=== PATIENT | male | born 1945 | race Caucasian/White ===

== ENCOUNTER 2016-07-12 13:49 | Inpatient (IN) | payer OTHER ==
[~2016-07-12] VITALS: Ht 188 cm; Wt 102.0 kg
[2016-07-12 13:53] VITALS: BP 142/84; PULSE 109; RESP 20; TEMP 97.5; O2SAT 91
--- NOTE | 2016-07-12 14:03 | PD ---
Physical Exam Time Seen by Provider: 14:00 Narrative 70yo F c/o syncopal episode last night. Denies hitting head. Vomited after event. C/o SOB for about month r/t pneumonia. Denies chest pain. Told [facility] Patient seen in triage. VS reviewed. Awaiting bed placement. Data Data Last Documented VS Vital Signs Date Time Temp Pulse Resp B/P Pulse Ox O2 Delivery O2 Flow Rate FiO2 07/12/16 13:53 97.5 109 20 142/[address] [facility] Supervised Visit with DAMON: Aileen Arita Jul 12, 2016 14:03
--- NOTE | 2016-07-12 14:26 | PD ---
HPI Chief Complaint: Syncope/Near-Syncope Time Seen by Provider: 14:26 Travel History International Travel<30 days: No Contact w/Intl Traveler<30days: No Traveled to known affect area: No History of Present Illness HPI 70-year-old male with a history of hypertension, CVA, atrial fibrillation, CABG with valve replacement and bypass 3 presents to the emergency department for evaluation of shortness of breath and syncope. The patient states that for the past month he's had worsening shortness of breath on exertion. States that he' s also had episodes of lightheadedness when bending down to pick something up or going from a sitting to standing position. States that last night he started up from his chair and he came very lightheaded and passed out for about 1-2 minutes. This was witnessed by the patient's . The patient denies any preceding chest pain. States that he had one episode of nonbloody nonbilious emesis earlier in the evening last night that he believes was secondary to bad spinach she ate at a restaurant. He denies any chest pain, abdominal pain, diarrhea, constipation, bloody stool, black stool, numbness and tingling, weakness, fever, chills, cough or cold symptoms. He is currently anticoagulated on Xarelto. PCP is the [facility]. No other complaints. PFSH Past Medical History Hx Anticoagulant Therapy: Yes (XARELTO) Cardiovascular Problems: Yes (VALVE REPLACEMENT, TRIPLE BYPASS) Cerebrovascular Accident: Yes (CVA 2009) Diabetes: Yes Respiratory: Yes Social History Tobacco Use: Yes (remote history, no longer smokes) Allergies-Medications (Allergen,Severity, Reaction): Coded Allergies: No Known Allergies (Unverified , 07/12/16) Reported Meds & Prescriptions Reported Meds & Active Scripts Active Reported Gabapentin 300 Mg Cap 300 Mg PO HS Lisinopril 5 Mg Tab 5 Mg PO DAILY Lantus Inj (Insulin Glargine) 1,000 Unit/10 Ml Vial 25 Units SQ HS Omeprazole 20 Mg Tab 20 Mg PO DAILY Tylenol-Codeine #3 (Acetaminophen-Codeine) 300-30 mg Tab 1 Tab PO Q4-6H PRN Xarelto (Rivaroxaban) 20 Mg Tab 20 Mg PO DAILY Invokana (Canagliflozin) 300 Mg Tab 300 Mg PO DAILY Take before 1st meal of day. [Liposic Eye Gel 0.2%] 1 Drop EACH EYE BID PRN Systane Ultra Preservative Opth (Polyethylene Glycol-Propylene Opth) 0.4-0.3% Soln 1 Drop EACH EYE BID PRN Atorvastatin (Atorvastatin Calcium) 40 Mg Tab 40 Mg PO HS Humalog Inj (Insulin Human Lispro) 1,000 Unit/10 Ml Vial 5-8 Units SQ TIDAC Max dose at bedtime:( )units; sugars < 70,(0)units; sugars 150-199,(2)units; sugars 200-249,(4)units; sugars 250-299,(7)units; sugars 300-349,(10)units; sugars more than 349,(12)units. Metformin (Metformin HCl) 1,000 Mg Tab 1,000 Mg PO BIDPC With meals Furosemide 20 Mg Tab 20 Mg PO DAILY Review of Systems Except as stated in HPI: all other systems reviewed are Neg Physical Exam Narrative GENERAL: Well-nourished and well-developed pleasant male patient in no acute distress who is nontoxic appearing. SKIN: Warm and dry. HEAD: Normocephalic and atraumatic. EYES: No injection, drainage, or hyphema noted. PERRLA. EOMI. ENT: No nasal drainage noted. Oropharynx is clear. NECK: Supple and the trachea is midline. CARDIOVASCULAR: Regular rate and rhythm. RESPIRATORY: Breath sounds are equal bilaterally with no accessory muscle use, wheezing, rhonchi, or crackles. GASTROINTESTINAL: Abdomen is soft, non-tender, and nondistended. MUSCULOSKELETAL: Mild swelling of lower extremities bilaterally. No obvious deformities, cyanosis, or ecchymosis is present throughout the upper and lower extremities. Patient has full range of motion without any signs of neurovascular compromise. NEUROLOGICAL: Awake, alert, and oriented. Normal speech and gait. Cranial nerves are grossly intact. Data Data Last Documented VS Vital Signs Date Time Temp Pulse Resp B/P Pulse Ox O2 Delivery O2 Flow Rate FiO2 07/12/16 14:37 84 136/71 89 101/72 112/57 07/12/16 14:16 20 95 Room Air 07/12/16 13:53 97.5 Orders Electrocardiogram (07/12/16 ) Complete Blood Count With Diff (07/12/16 14:23) Comprehensive Metabolic Panel (07/12/16 14:23) Magnesium (Mg) (07/12/16 14:23) Troponin I (07/12/16 14:23) Act Partial Throm Time (Ptt) (07/12/16 14:23) Prothrombin Time / Inr (Pt) (07/12/16 14:23) Chest, Single Ap (07/12/16 14:23) Ecg Monitoring (07/12/16 14:23) Iv Access Insert/Monitor (07/12/16 14:23) Oximetry (07/12/16 14:23) Sodium Chloride 0.9% Flush (Ns Flush) (07/12/16 14:30) Ct Pulmonary Angiogram (07/12/16 14:23) B-Type Natriuretic Peptide (07/12/16 14:23) Sodium Chlorid 0.9% 500 Ml Inj (Ns 500 M (07/12/16 14:30) Orthostatic Vital Signs (07/12/16 14:23) Iohexol 350 Inj (Omnipaque 350 Inj) (07/12/16 16:11) Labs Laboratory Tests Test 07/12/16 14:30 White Blood Count 10.9 TH/MM3 Red Blood Count 4.87 MIL/MM3 Hemoglobin 11.7 GM/DL Hematocrit 37.1 % Mean Corpuscular Volume 76.2 FL Mean Corpuscular Hemoglobin 24.1 PG Mean Corpuscular Hemoglobin 31.6 % Concent Red Cell Distribution Width 18.2 % Platelet Count 278 TH/MM3 Mean Platelet Volume 7.9 FL Neutrophils (%) (Auto) 80.8 % Lymphocytes (%) (Auto) 9.2 % Monocytes (%) (Auto) 8.0 % Eosinophils (%) (Auto) 1.5 % Basophils (%) (Auto) 0.5 % Neutrophils # (Auto) 8.8 TH/MM3 Lymphocytes # (Auto) 1.0 TH/MM3 Monocytes # (Auto) 0.9 TH/MM3 Eosinophils # (Auto) 0.2 TH/MM3 Basophils # (Auto) 0.1 TH/MM3 CBC Comment DIFF FINAL Differential Comment Prothrombin Time 16.4 SEC Prothromb Time International 1.5 RATIO Ratio Activated Partial 32.7 SEC Thromboplast Time Sodium Level 133 MEQ/L Potassium Level 4.7 MEQ/L Chloride Level 98 MEQ/L Carbon Dioxide Level 21.0 MEQ/L Anion Gap 14 MEQ/L Blood Urea Nitrogen 43 MG/DL Creatinine 1.32 MG/DL Estimat Glomerular Filtration 54 ML/MIN Rate Random Glucose 132 MG/DL Calcium Level 8.9 MG/DL Magnesium Level 2.3 MG/DL Total Bilirubin 0.7 MG/DL Aspartate Amino Transf 32 U/L (AST/SGOT) Alanine Aminotransferase 27 U/L (ALT/SGPT) Alkaline Phosphatase 92 U/L Troponin I 0.07 NG/ML B-Type Natriuretic Peptide 501 PG/ML Total Protein 7.3 GM/DL Albumin 3.5 GM/DL MDM Medical Decision Making Medical Screen Exam Complete: Yes Emergency Medical Condition: Yes Differential Diagnosis Orthostatic hypotension versus PE versus heart failure versus dehydration versus electrolyte abnormality versus pneumonia Narrative Course 70-year-old male presents to the emergency department for evaluation of shortness of breath and syncope. Patient is afebrile. He is tachycardic with heart rate 109 bpm. Patient is initially hypoxic with an oxygen saturation of 91%. IV access is obtained, labs have been drawn and sent. Patient is placed on cardiac telemetry and pulse oximetry monitoring. EKG shows atrial fibrillation with a ventricular rate of 90 bpm. He has some swelling of his ankles and states that he used to be on higher doses of diuretics but is now on a lower dose. He states he doesn't have a history of heart failure. CBC shows mild anemia with a hemoglobin of 11.7, hematocrit 37.1. CMP shows mild renal insufficiency with a creatinine of 1.32, BUN 43, GFR 54. Troponin is elevated at 0.07. BNP is elevated at 501. Coags are unremarkable. Chest x-ray shows cardiomegaly with mild positive fluid balance. CT pulmonary angiogram is negative for PE, shows advanced pulmonary fibrosis. Patient has remained stable without complaint the emergency department. The patient has mild elevations of both his troponin and his BNP. I suspect he has an element of heart failure which fits the clinical picture of his bilateral leg edema and shortness of breath with exertion. Given possibility of heart failure and his syncopal episode the patient will be kept in observation for further evaluation of these conditions. I discussed the case with my attending physician Dr. Bennett who is aware of the patients history, physical examination findings, and treatment plan. Physician Communication Physician Communication I spoke with Dr. Simon who agrees to keep the patient in observation. Diagnosis Primary Impression: Syncope Qualified Code: R55 - Syncope, unspecified syncope type Additional Impression: Elevated troponin Admitting Information Admitting Physician Requests: Observation Aileen Lindo Jul 12, 2016 14:26
[2016-07-12] MEDS ORDERED: SODIUM CHLORID 0.9% 500 ML INJ 500 ML IV ONE (14:30)
[2016-07-12] MEDS ORDERED: SODIUM CHLORIDE 0.9% FLUSH 10 ML FLUSH IVF PRN (14:30)
[2016-07-12 14:37] VITALS: BP_SYST 101; BP_SYST 112; BP_SYST 136; BP_DIAS 57; BP_DIAS 71; BP_DIAS 72
[2016-07-12 15:08] LABS: AUTOMATED NEUTROPHIL # 8.8 TH/MM3 (1.8-7.7); BASOPHIL # 0.1 TH/MM3 (0-0.2); BASOPHIL % 0.5 % (0.0-2.0); EOSINOPHIL # 0.2 TH/MM3 (0-0.4); EOSINOPHIL % 1.5 % (0.0-4.0); HEMATOCRIT 37.1 % (39.0-51.0); HEMO FLAGS DIFF FINAL; LYMPH % 9.2 % (9.0-44.0); MEAN CELL VOLUME 76.2 FL (80.0-100.0); MEAN CORPUSCULAR HEMOGLOBIN 24.1 PG (27.0-34.0); MEAN CORPUSCULAR HGB CONC 31.6 % (32.0-36.0); NEUT % 80.8 % (16.0-70.0); PLATELET COUNT 278 TH/MM3 (150-450); RED BLOOD COUNT 4.87 MIL/MM3 (4.50-5.90); RED CELL DISTRIBUTION WIDTH 18.2 % (11.6-17.2); WHITE BLOOD COUNT 10.9 TH/MM3 (4.0-11.0)
[2016-07-12 15:28] LABS: ALT (GPT) 27 U/L (12-78); ANION GAP 14 MEQ/L (5-15); AST (GOT) 32 U/L (15-37); BLOOD UREA NITROGEN 43 MG/DL (7-18); CHLORIDE 98 MEQ/L (98-107); GLOMERULAR FILTRATION RATE 54 ML/MIN (>89); MAGNESIUM 2.3 MG/DL (1.5-2.5); POTASSIUM 4.7 MEQ/L (3.5-5.1); SODIUM (NA) 133 MEQ/L (136-145)
[2016-07-12 15:32] LABS: ALKALINE PHOSPHATASE 92 U/L (45-117); TOTAL BILIRUBIN ADULT 0.7 MG/DL (0.2-1.0)
[2016-07-12 15:35] LABS: INTERNATIONAL NORMALIZED RATIO 1.5 RATIO; PROTHROMBIN TIME - PATIENT 16.4 SEC (9.8-11.6)
[2016-07-12 15:36] LABS: APTT (PATIENT) 32.7 SEC (24.3-30.1)
--- NOTE | 2016-07-12 15:46 | RADRPT ---
EXAM DATE/TIME: 07/12/2016 14:52 [facility] COMPARISON: No previous studies available for comparison. INDICATIONS : Short of breath, palpitations. MEDICAL HISTORY : None. SURGICAL HISTORY : CABG. ENCOUNTER: Initial ACUITY: 1 day PAIN SCORE: 0/10 LOCATION: Bilateral chest FINDINGS: Post surgical features of prior median sternotomy. Cardiac silhouette is mildly enlarged. Lungs are s lightly hypoaerated with diffuse interstitial prominence. No significant focal pleural or parenchymal opacities. Bony thorax is intact. CONCLUSION: 1. Cardiomegaly with mild positive fluid balance. Loy Arshad MD on July 12, 2016 at 15:42 Board Certified Radiologist. This report was verified electronically.
[2016-07-12] MEDS ORDERED: IOHEXOL 350 MG/ML 10 ML VIAL (for RAD DIAG) IV ONE (16:11)
--- NOTE | 2016-07-12 16:18 | RADRPT ---
EXAM DATE/TIME: 07/12/2016 15:48 [facility] COMPARISON: No previous studies available for comparison. INDICATIONS : Shortness of breath for one month syncopal episode last night. IV CONTRAST: 55 cc Omnipaque 350 (iohexol) IV RADIATION DOSE: 20.85 CTDIvol (mGy) MEDICAL HISTORY : Cardiovascular disease. Cerebrovascular disease.Diabetes SURGICAL HISTORY : CABG ENCOUNTER: Initial ACUITY: 1 month PAIN SCALE: 0/10 LOCATION: chest TECHNIQUE: Volumetric scanning of the chest was performed using a pulmonary embolism protocol MIP images were re constructed. Using automated exposure control and adjustment of the mA and/or kV according to patien t size, radiation dose was kept as low as reasonably achievable to obtain optimal diagnostic quality images. FINDINGS: The examination is of good diagnostic quality. No pulmonary embolus is identified. There is no significant hilar or mediastinal adenopathy. The patient is post median sternotomy and va lvular replacement. No axillary adenopathy is seen. Imaging through the pulmonary parenchyma demonstrates advanced interstitial fibrotic changes. There i s no significant pleural effusion. No suspicious mass lesion is identified. The limited portions of upper abdomen demonstrate a small amount of ascites. There are calcified ston es within the gallbladder. There degenerative changes within the spine. CONCLUSION: 1. Advanced pulmonary fibrosis. 2. No pulmonary embolus Francisco Javier Noonan MD on July 12, 2016 at 16:14 Board Certified Radiologist. This report was verified electronically.
[2016-07-12] MEDS ORDERED: [UNRECOGNIZED DRUG - OTHER] EACH EYE (16:29)
[2016-07-12] MEDS ORDERED: CANA300T PO (16:29)
[2016-07-12] MEDS ORDERED: SYSTSOL11 EACH EYE (16:29)
[2016-07-12] MEDS ORDERED: HUMALOG SQ (16:29)
[2016-07-12] MEDS ORDERED: ATOR40TA16 PO (16:29)
[2016-07-12] MEDS ORDERED: TYLETAB34 PO (16:29)
[2016-07-12] MEDS ORDERED: OMEP20TA PO (16:29)
[2016-07-12] MEDS ORDERED: LISI-519 PO (16:29)
[2016-07-12] MEDS ORDERED: LANTUS2P SQ (16:29)
[2016-07-12] MEDS ORDERED: FURO20TA PO (16:29)
[2016-07-12] MEDS ORDERED: METF1000 PO (16:29)
[2016-07-12] MEDS ORDERED: XARE20TA PO (16:29)
[2016-07-12] MEDS ORDERED: GABA300C5 PO (16:31)
[2016-07-12] MEDS ORDERED: GLUCAGON 1 MG/ML VIAL OTHER PRN (17:30)
[2016-07-12] MEDS ORDERED: TEMAZEPAM 15 MG CAP PO PRN (17:30)
[2016-07-12] MEDS ORDERED: ONDANSETRON HCL 4 MG/2 ML VIAL IVP PRN (17:30)
[2016-07-12] MEDS ORDERED: NALOXONE HCL 0.4 MG/ML AMP IV PRN (17:30)
[2016-07-12] MEDS ORDERED: SODIUM CHLORIDE 0.9% FLUSH 10 ML FLUSH IV FLUSH PRN (17:30)
[2016-07-12] MEDS ORDERED: DEXTROSE 50% IN WATER 50 ML VIAL(D50) IV PRN (17:30)
[2016-07-12] MEDS ORDERED: ACETAMINOPHEN 325 MG TAB PO PRN (17:30)
[2016-07-12] MEDS ORDERED: RESP: ALBUTEROL 2.5 MG/IPRATROPIUM 0.5 MG NEB (PRN) NEB (17:30)
[2016-07-12] MEDS: FUROSEMIDE 20 MG/2 ML VIAL IV PUSH SCH (18:00)
--- NOTE | 2016-07-12 18:17 | HHI.HP ---
H[facility] Admission Diagnosis Syncope, Elevated Troponin Diagnoses: Chief Complaint: Syncope Travel History International Travel<30 Days: No Contact w/Intl Traveler <30 Da: No Traveled to Known Affected Are: No History of Present Illness Written by Junito Pena, acting as scribe for Dr. Simon on 07/12/16 at 18:17. 70-year-old male with past medical history of HTN, A. fib, CVA, DM, HLD, GERD who presented after a syncopal episode. The patient states that last night he had a syncopal episode. He states that he stood up to a few steps and then felt lightheaded and dizzy like he was going to pass out. He subsequently lost consciousness for about 5 minutes. He states that he's been having problems breathing for the past month. He states that he's been on 3 courses of antibiotics which really haven't improved his breathing. He states that his shortness breath is worse whenever he exerts himself or whenever he bends over. He normally follows with physicians, including cardiology in [place] and plans to return there after discharge. He denies ever being diagnosed with congestive heart failure or COPD. He does state that his diabetes medicine specialist recently decreased his Lasix dose. He states that he takes Lasix for lower extremity swelling. He quit smoking in 1980. Review of Systems Except as stated in HPI: all other systems reviewed are Neg Past Family Social History Past Medical History Hypertension Stroke Atrial fibrillation Diabetes mellitus with peripheral neuropathy GERD Hyperlipidemia Past Surgical History CABG 3 with aortic valve replacement Right carotid grafting Reported Medications Gabapentin 300 Mg Cap 300 Mg PO HS Lisinopril 5 Mg Tab 5 Mg PO DAILY Lantus Inj (Insulin Glargine) 1,000 Unit/10 Ml Vial 25 Units SQ HS Omeprazole 20 Mg Tab 20 Mg PO DAILY Tylenol-Codeine #3 (Acetaminophen-Codeine) 300-30 mg Tab 1 Tab PO Q4-6H PRN Xarelto (Rivaroxaban) 20 Mg Tab 20 Mg PO DAILY Invokana (Canagliflozin) 300 Mg Tab 300 Mg PO DAILY Take before 1st meal of day. [Liposic Eye Gel 0.2%] 1 Drop EACH EYE BID PRN Systane Ultra Preservative Opth (Polyethylene Glycol-Propylene Opth) 0.4-0.3% Soln 1 Drop EACH EYE BID PRN Atorvastatin (Atorvastatin Calcium) 40 Mg Tab 40 Mg PO HS Humalog Inj (Insulin Human Lispro) 1,000 Unit/10 Ml Vial 5-8 Units SQ TIDAC Max dose at bedtime:( )units; sugars < 70,(0)units; sugars 150-199,(2)units; sugars 200-249,(4)units; sugars 250-299,(7)units; sugars 300-349,(10)units; sugars more than 349,(12)units. Metformin (Metformin HCl) 1,000 Mg Tab 1,000 Mg PO BIDPC With meals Furosemide 20 Mg Tab 20 Mg PO DAILY Allergies: Coded Allergies: No Known Allergies (Unverified , 07/12/16) Active Ordered Medications Current Medications Medications (Trade) Dose Ordered Sig/Gian Route Start Time Stop Time Status Last Admin (NS Flush) 2 ml UNSCH PRN IV FLUSH 07/12/16 17:30 (NS Flush) 2 ml BID IV FLUSH 07/12/16 21:00 (Tylenol) 650 mg Q4H PRN PO 07/12/16 17:30 (Zofran Inj) 4 mg Q6H PRN IVP 07/12/16 17:30 (Restoril) 15 mg HS PRN PO 07/12/16 17:30 (Narcan Inj) 0.4 mg UNSCH PRN IV 07/12/16 17:30 (Lasix Inj) 20 mg BID@09,18 IV PUSH 07/12/16 18:00 07/12/16 18:00 (D50w (Vial) Inj) 50 ml UNSCH PRN IV 07/12/16 17:30 (Glucagon Inj) 1 mg UNSCH PRN OTHER 07/12/16 17:30 Family History Mother had congestive heart failure Social History Quit smoking in 1980 Has alcohol maybe once or twice a year Denies any substance use 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 In no acute distress. SKIN: Warm and dry. No lesions noted. HEENT: Normocephalic. Pupils equal and round. Mucous membranes pink and moist. CARDIOVASCULAR: Regular rate and rhythm. 2/6 systolic murmur appreciated. RESPIRATORY: No accessory muscle use. Decreased breath sounds in the bilateral lung bases. No wheezing. GASTROINTESTINAL: Abdomen soft, non-tender, nondistended. Bowel sounds x4. MUSCULOSKELETAL: No obvious deformities. No clubbing or cyanosis. 1+ edema. NEUROLOGICAL: Awake and alert. No focal neurological deficits. Moves upper and lower extremities spontaneously. Normal speech. PSYCHIATRIC: Appropriate mood and affect; insight and judgment normal. Laboratory Laboratory Tests Test 07/12/16 14:30 White Blood Count 10.9 Red Blood Count 4.87 Hemoglobin 11.7 Hematocrit 37.1 Mean Corpuscular Volume 76.2 Mean Corpuscular Hemoglobin 24.1 Mean Corpuscular Hemoglobin 31.6 Concent Red Cell Distribution Width 18.2 Platelet Count 278 Mean Platelet Volume 7.9 Neutrophils (%) (Auto) 80.8 Lymphocytes (%) (Auto) 9.2 Monocytes (%) (Auto) 8.0 Eosinophils (%) (Auto) 1.5 Basophils (%) (Auto) 0.5 Neutrophils # (Auto) 8.8 Lymphocytes # (Auto) 1.0 Monocytes # (Auto) 0.9 Eosinophils # (Auto) 0.2 Basophils # (Auto) 0.1 CBC Comment DIFF FINAL Differential Comment Prothrombin Time 16.4 Prothromb Time International 1.5 Ratio Activated Partial 32.7 Thromboplast Time Sodium Level 133 Potassium Level 4.7 Chloride Level 98 Carbon Dioxide Level 21.0 Anion Gap 14 Blood Urea Nitrogen 43 Creatinine 1.32 Estimat Glomerular Filtration 54 Rate Random Glucose 132 Calcium Level 8.9 Magnesium Level 2.3 Total Bilirubin 0.7 Aspartate Amino Transf 32 (AST/SGOT) Alanine Aminotransferase 27 (ALT/SGPT) Alkaline Phosphatase 92 Troponin I 0.07 B-Type Natriuretic Peptide 501 Total Protein 7.3 Albumin 3.5 Result Diagram: 07/12/16 1430 07/12/16 1430 Imaging Last Impressions Chest X-Ray 07/12/16 1423 Signed Impressions: Service Date/Time: Tuesday, July 12, 2016 14:52 - CONCLUSION: 1. Cardiomegaly with mild positive fluid balance. Loy Arshad MD CT Angiography 07/12/16 1423 Signed Impressions: Service Date/Time: Tuesday, July 12, 2016 15:48 - CONCLUSION: 1. Advanced pulmonary fibrosis. 2. No pulmonary embolus Francisco Javier Noonan MD Assessment and Plan Problem List: (1) New onset of congestive heart failure ICD Code: I50.9 Status: Acute (2) Syncope ICD Code: R55 Status: Acute (3) Pulmonary fibrosis ICD Code: J84.10 Status: Acute (4) Atrial fibrillation ICD Code: I48.91 Status: Acute (5) DM (diabetes mellitus) ICD Code: E11.9 Status: Acute Assessment and Plan 70-year-old male with past medical history of HTN, A. fib, CVA, DM, HLD, GERD who presented after a syncopal episode Syncope: Unclear etiology, probably multifactorial. Orthostatic positive in the ED. Also probably a component of hypoxia from underlying CHF and COPD. Troponin 0.07, likely due to renal dysfunction CHF, will trend. EKG with A. fib and PVCs. Monitor orthostatic vitals. Monitor telemetry. Check echocardiogram. Treat underlying etiologies as below. Suspected new onset CHF: Chest x-ray with mild pulmonary edema. Lower edema on exam. Dyspnea on exertion by history. BNP 501. Diuresis with IV Lasix. Monitor I's and O's. Check echocardiogram. Consult cardiology. Pulmonary fibrosis with possible underlying COPD: Pulmonary angiogram with no PE , however shows advanced pulmonary fibrosis. Supplemental O2 and nebs as needed. Consider walk test. Needs pulmonology follow-up as outpatient. Diabetes mellitus: Hold home oral hypoglycemics for now. Continue home basal insulin. Monitor Accu-Cheks. SSI coverage as needed. Check hemoglobin A1c. Continue gabapentin for neuropathy. JOSELUIS vs CKD: Creatinine 1.32, no previous labs for comparison. Appears volume overloaded on exam. Diuresis as above. Follow-up BMP. Atrial fibrillation: Continue anticoagulations with Xarelto. This note was transcribed by ivan White I, Dr. Buddy Simon personally performed the history, physical exam, and medical decision making; and confirmed the accuracy of the information in the transcribed note. Authenticated by Dr. Buddy Simon on 07/12/16 at 18:17. Code Status Full code Discussed Condition With Patient, ED PA Problem Qualifiers (1) Syncope: Qualified Code: R55 - Syncope, unspecified syncope type Junito Pena Jul 12, 2016 18:17 Buddy Simon MD Jul 12, 2016 18:18
[2016-07-12] MEDS ORDERED: POLYETHYLENE GLYCOL PROPYLENE OPTH EACH EYE PRN (18:30)
[2016-07-12] MEDS ORDERED: [UNRECOGNIZED DRUG - OTHER] EACH EYE PRN (18:30)
[2016-07-12 20:26] VITALS: BP 121/64; PULSE 90; RESP 18; TEMP 98.5; O2SAT 97
[2016-07-12] MEDS: INSULIN ASPART SUPPLEMENTAL SCALE SQ SCH (21:00)
[2016-07-12] MEDS: INSULIN DETEMIR 100 UNITS/ML VIAL SQ SCH (21:00)
[2016-07-12] MEDS ORDERED: INSULIN ASPART SUPPLEMENTAL SCALE SQ SCH (21:00)
[2016-07-12 21:07] LABS: CREATINE KINASE 107 U/L (39-308)
[2016-07-12] MEDS: GABAPENTIN 300 MG CAP PO SCH (21:17)
[2016-07-12] MEDS: SODIUM CHLORIDE 0.9% FLUSH 10 ML FLUSH IV FLUSH SCH (21:18)
[2016-07-12] MEDS: ATORVASTATIN 40 MG TAB PO SCH (21:18)
[2016-07-12 22:52] VITALS: PULSE 84
[2016-07-13] VITALS (11 sets, daily range): BP systolic 82–133; BP diastolic 51–78; PULSE 64–91; RESP 16–20; TEMP 96.4–98.7; O2SAT 92–98
[2016-07-13 03:50] LABS: AUTOMATED NEUTROPHIL # 5.4 TH/MM3 (1.8-7.7); BASOPHIL # 0.1 TH/MM3 (0-0.2); EOSINOPHIL # 0.3 TH/MM3 (0-0.4); EOSINOPHIL % 3.8 % (0.0-4.0); HEMATOCRIT 36.4 % (39.0-51.0); HEMO FLAGS DIFF FINAL; LYMPH % 17.3 % (9.0-44.0); LYMPHOCYTE # 1.4 TH/MM3 (1.0-4.8); MEAN CELL VOLUME 76.1 FL (80.0-100.0); MEAN CORPUSCULAR HEMOGLOBIN 23.7 PG (27.0-34.0); MEAN CORPUSCULAR HGB CONC 31.1 % (32.0-36.0); MONO % 9.9 % (0.0-8.0); PLATELET COUNT 277 TH/MM3 (150-450); RED BLOOD COUNT 4.79 MIL/MM3 (4.50-5.90); RED CELL DISTRIBUTION WIDTH 18.2 % (11.6-17.2); WHITE BLOOD COUNT 7.9 TH/MM3 (4.0-11.0)
[2016-07-13 04:22] LABS: ANION GAP 11 MEQ/L (5-15); AST (GOT) 33 U/L (15-37); BICARBONATE 25.3 MEQ/L (21.0-32.0); BLOOD UREA NITROGEN 37 MG/DL (7-18); CHLORIDE 100 MEQ/L (98-107); GLOMERULAR FILTRATION RATE 64 ML/MIN (>89); POTASSIUM 4.4 MEQ/L (3.5-5.1); SODIUM (NA) 136 MEQ/L (136-145)
[2016-07-13 04:29] LABS: ALKALINE PHOSPHATASE 90 U/L (45-117); ALT (GPT) 27 U/L (12-78); TOTAL BILIRUBIN ADULT 0.5 MG/DL (0.2-1.0)
[2016-07-13] MEDS: INSULIN ASPART SUPPLEMENTAL SCALE SQ SCH ×4 (06:02→22:05)
[2016-07-13] MEDS: PANTOPRAZOLE SOD 20 MG DELAYED RELEASE TAB PO SCH (08:58)
[2016-07-13] MEDS: FUROSEMIDE 20 MG/2 ML VIAL IV PUSH SCH ×2 (08:58→17:13)
[2016-07-13] MEDS: RIVAROXABAN 20 MG TAB PO SCH (08:58)
[2016-07-13] MEDS: SODIUM CHLORIDE 0.9% FLUSH 10 ML FLUSH IV FLUSH SCH ×2 (08:59→21:00)
--- NOTE | 2016-07-13 09:14 | HHI.PR ---
Subjective Remarks Follow-up for syncope and probable CHF. The patient is doing well today. He denies any lightheadedness or dizziness. He hasn't really been out of bed much , reports shortness of breath with exertion. He states that normally he is able to go to sleep flat, but he does wake up at night and have to sit up to breathe better. He has no other acute complaints at this time. Objective Vitals Vital Signs Date Time Temp Pulse Resp B/P Pulse Ox O2 Delivery O2 Flow Rate FiO2 07/13/16 08:08 68 07/13/16 07:26 97.7 67 18 98/63 96 90/65 96/57 07/13/16 04:18 98.4 77 16 123/68 92 122/64 118/58 07/13/16 01:08 91 20 122/78 95 07/13/16 01:03 98 Nasal Cannula 3.00 07/12/16 22:52 84 07/12/16 20:26 98.5 90 18 121/64 97 07/12/16 14:37 84 136/71 89 101/72 112/57 07/12/16 14:16 20 95 Room Air 07/12/16 13:53 97.5 109 20 142/84 91 Room Air I/O 07/12/16 07/12/16 07/12/16 07/13/16 07/13/16 07/13/16 07:00 15:00 23:00 07:00 15:00 23:00 Intake Total 240 ml Output Total 350 ml 400 ml Balance -110 ml -400 ml Intake Oral 240 ml Output Urine Total 350 ml 400 ml Result Diagram: 07/13/1631607/13/16316 Imaging Last Impressions Chest X-Ray 07/12/161422 Signed Impressions: Service Date/Time: Tuesday, July 12, 2016 14:52 - CONCLUSION: 1. Cardiomegaly with mild positive fluid balance. Loy Arshad MD CT Angiography 07/12/161422 Signed Impressions: Service Date/Time: Tuesday, July 12, 2016 15:48 - CONCLUSION: 1. Advanced pulmonary fibrosis. 2. No pulmonary embolus Francisco Javier Noonan MD Objective Remarks GENERAL: Well-developed well-nourished. In no acute distress. SKIN: Warm and dry. No lesions noted. HEENT: Normocephalic. Pupils equal and round. Mucous membranes pink and moist. CARDIOVASCULAR: Irregular rate and rhythm. No murmur appreciated. RESPIRATORY: No accessory muscle use. Clear to auscultation. Diminished breath sounds in all lung cort[place]. No definite crackles noted. GASTROINTESTINAL: Abdomen soft, non-tender, nondistended. Bowel sounds x4. MUSCULOSKELETAL: No obvious deformities. No clubbing or cyanosis. 1+ edema. NEUROLOGICAL: Awake and alert. No focal neurological deficits. Moves upper and lower extremities spontaneously. Normal speech. PSYCHIATRIC: Appropriate mood and affect; insight and judgment normal. A/P Problem List: (1) New onset of congestive heart failure ICD Code: I50.9 Status: Acute (2) Syncope ICD Code: R55 Status: Acute (3) Pulmonary fibrosis ICD Code: J84.10 Status: Acute (4) Atrial fibrillation ICD Code: I48.91 Status: Acute (5) DM (diabetes mellitus) ICD Code: E11.9 Status: Acute Assessment and Plan 70-year-old male with past medical history of HTN, A. fib, CVA, DM, HLD, GERD who presented after a syncopal episode Syncope: Unclear etiology, probably multifactorial. -Orthostatic positive in the ED, improving, counseled on surgical incisions, FERNANDO hose. Monitor orthostatics. -Also probably a component of hypoxia from underlying CHF and COPD. Treat underlying etiologies as below. -Troponin 0.07, 0.09, 0.07, flat, nonischemic, likely due to renal dysfunction and CHF. EKG with A. fib and PVCs. -Monitor telemetry. Check echocardiogram. Suspected new onset CHF: Chest x-ray with mild pulmonary edema. Lower edema on exam. Dyspnea on exertion and orthopnea by history. BNP 501. Diuresis with IV Lasix. Monitor I's and O's. Check echocardiogram. Consulted cardiology. Pulmonary fibrosis with possible underlying COPD: Pulmonary angiogram with no PE , however shows advanced pulmonary fibrosis. Supplemental O2 and nebs as needed. Consider walk test. Needs pulmonology follow-up as outpatient. Diabetes mellitus: Hold home oral hypoglycemics for now. Continue home basal insulin. Monitor Accu-Cheks. SSI coverage as needed. Hemoglobin A1c pending. Continue gabapentin for neuropathy. JOSELUIS vs CKD: Creatinine 1.32, no previous labs for comparison. Creatinine improved to 1.13 with diuresis, likely cardiorenal. Diuresis as above. Follow- up BMP. Atrial fibrillation: Continue anticoagulation with Xarelto. Problem Qualifiers (1) Syncope: Qualified Code: R55 - Syncope, unspecified syncope type Junito Pena Jul 13, 2016 09:14
[2016-07-13 10:59] LABS: HEMOGLOBIN A1a 1.5 %; HEMOGLOBIN A1b 2.3 %; HEMOGLOBIN Ao 80.6 %; HEMOGLOBIN LA1C 2.1 %; HEMOGLOBIN P3 6.9 %
--- NOTE | 2016-07-13 13:06 | MB ---
cc: SANDRA CASTRO DATE OF CONSULTATION 07/13/2016 REASON FOR CONSULTATION Mr. Harper is a 70-year-old white male with a history of hypertension, atrial fibrillation, CVA and diabetes mellitus. Yesterday he had syncope after was dizzy, lightheaded and stood up, walked and passed out. He was unconscious apparently for about five minutes. He has had increased shortness of breath over the last month. He has not had any chest pain. He has no previous history of coronary artery disease for congestive heart failure. He has lower edema. PAST MEDICAL HISTORY Positive for: 1. Hypertension 2. CVA 3. Atrial fibrillation 4. Diabetes mellitus 5. Peripheral diabetic neuropathy 6. Gastroesophageal reflux disease 7. Dyslipidemia 8. History of coronary artery disease 9. Previous bypass 10. Aortic valve replacement 11. No peripheral vascular disease 12. Right carotid artery intervention MEDICATIONS Include: 1. Furosemide 2. Metformin 3. Insulin 4. Atorvastatin 5. Eye drops 6. Invokana 7. Xarelto 20 mg daily 8. Acetaminophen with codeine 9. Omeprazole 10. Lisinopril 5 mg a day 11. Gabapentin ALLERGIES None. SOCIAL HISTORY The patient quit smoking in the . He does drink alcohol rarely. He is retired. FAMILY HISTORY Positive for congestive heart failure in his mother. Negative for coronary artery disease. REVIEW OF SYSTEMS Otherwise negative. PHYSICAL EXAMINATION Blood pressure 93/63, pulse 77 and regular. HEENT: Negative. 2+ carotid upstrokes, no bruits. LUNGS: Clear. HEART: Irregular with no murmur, gallop or rub. ABDOMEN: Soft no bruits. EXTREMITIES: With mild edema, 1+ distal pulses. NEUROLOGIC: Exam is nonfocal. EKG was reviewed and showed atrial fibrillation with a controlled ventricular response, PVCs, delayed R-wave progression in the pericardial leads. LABORATORY DATA Hemoglobin 11.3, potassium 4.4, creatinine 1.3 and 1.1. AST and ALT normal, CK 107 and 95, troponin 0.07, 0.09 and 0.07, BMP 501. DIAGNOSIS 1. Syncope 2. Congestive heart failure 3. Chronic atrial fibrillation 4. Coronary artery disease with cardiac bypass. 5. Diabetes mellitus 6. Pulmonary fibrosis 7. Hypertension 8. Dyslipidemia DISPOSITION Mr. Harper will be monitored on telemetry. His slight troponin elevation is likely related to his renal insufficiency. We will obtain echocardiogram to evaluate his left ventricular function. We will continue therapy for congestive heart failure including IV diuresis. I will follow him for cardiology. We will closely monitor his renal function and electrolytes. I will follow him for cardiology during his hospitalization. He will then follow up at the [facility] after discharge. MD JONN Hernandez/JOSE RAMON /12:32 PM /12:51 PM URVASHI
--- NOTE | 2016-07-13 14:16 | EKG ---
Date Performed: 07/12/2016 Time Performed: 21:48:00 PTAGE: 70 years EKG: ATRIAL FIBRILLATION WITH ABERRANT CONDUCTION OR VENTRICULAR PREMATURE COMPLEXES POSSIBLE AN TERIOR MYOCARDIAL INFARCTION ABNORMAL RHYTHM ECG Compared to prior tracing no significant change PREVIOUS TRACING : 07/12/2016 14.21 DOCTOR: Tommie Ruggiero Interpretating Date/Time 07/13/2016 14:14:37
--- NOTE | 2016-07-13 14:16 | EKG ---
Date Performed: 07/13/2016 Time Performed: 03:40:20 PTAGE: 70 years EKG: ATRIAL FIBRILLATION WITH ABERRANT CONDUCTION OR VENTRICULAR PREMATURE COMPLEXES MODERATE IN TRAVENTRICULAR CONDUCTION DELAY MINIMAL ST DEPRESSION ABNORMAL QRS-T ANGLE ABNORMAL ECG Compared to p rior tracing no significant change PREVIOUS TRACING : 07/13/2016 03.39 DOCTOR: Tommie Ruggiero Interpretating Date/Time 07/13/2016 14:14:48
--- NOTE | 2016-07-13 14:16 | EKG ---
Date Performed: 07/12/2016 Time Performed: 14:21:17 PTAGE: 70 years EKG: ATRIAL FIBRILLATION WITH ABERRANT CONDUCTION OR VENTRICULAR PREMATURE COMPLEXES POSSIBLE AN TERIOR MYOCARDIAL INFARCTION ABNORMAL RHYTHM ECG NO PREVIOUS TRACING DOCTOR: Tommie Ruggiero Interpretating Date/Time 07/13/2016 14:14:27
--- NOTE | 2016-07-13 16:54 | ECHRPT ---
Indication: HEART FAILURE CONCLUSIONS Normal left ventricular size. Mild concentric left ventricular hypertrophy. The left ventricular sys tolic function is severely reduced with an estimated ejection fraction in the range of 20-25%. Mitral annular calcification is present. Trace mitral valve regurgitation. There is mild to moderate tricuspid valve regurgitation. BP: 96 / 57 HR: 67 Rhythm: Other MEASUREMENTS (Male / Female) Normal Values Technical Quality:Poor 2D ECHO LV Diastolic Diameter PLAX 4.4 cm 4.2 - 5.9 / 3.9 - 5.3 cm LV Systolic Diameter PLAX 3.9 cm IVS Diastolic Thickness 1.1 cm 0.6 - 1.0 / 0.6 - 0.9 cm LVPW Diastolic Thickness 1.1 cm 0.6 - 1.0 / 0.6 - 0.9 cm LV Relative Wall Thickness 0.5 LVOT Diameter 2.0 cm M-MODE Aortic Root Diameter MM 2.8 cm LA Systolic Diameter MM 4.7 cm LA Ao Ratio MM 1.7 DOPPLER AV Peak Velocity 209.0 cm/s AV Peak Gradient 17.5 mmHg AV Mean Gradient 12.0 mmHg AV Velocity Time Integral 47.3 cm LVOT Peak Velocity 103.0 cm/s LVOT Peak Gradient 4.2 mmHg AV Area Cont Eq pk 1.5 cm LV E' Septal Velocity 6.9 cm/s TR Peak Velocity 371.0 cm/s TR Peak Gradient 55.0 mmHg PV Peak Velocity 114.0 cm/s PV Peak Gradient 5.2 mmHg FINDINGS Left Ventricle Normal left ventricular size. Mild concentric left ventricular hypertrophy. The left ventricular sys tolic function is severely reduced with an estimated ejection fraction in the range of 20-25%. Right Ventricle Normal right ventricular size and systolic function. Left Atrium The left atrial size is normal. Right Atrium The right atrial size is normal. Atrial Septum Normal atrial septal thickness without atrial level shunting by limited color doppler interrogation. Aorta The aortic root and proximal ascending aorta are normal in size on limited imaging. Mitral Valve Mitral annular calcification is present. Trace mitral valve regurgitation. Aortic Valve Trileaflet aortic valve. No aortic valve stenosis or regurgitation. Tricuspid Valve There is mild to moderate tricuspid valve regurgitation. Pulmonary Valve The pulmonary valve is not well visualized. Vessels The inferior vena cava is normal in size. Pericardium No pericardial effusion. Other Findings Aortic valve replacement, veal valve per patient. Shaggy Mcrae MD, FACC (Electronically Signed) Final Date:13 July 2016 16:53
[2016-07-13] MEDS: INSULIN DETEMIR 100 UNITS/ML VIAL SQ SCH (22:03)
[2016-07-13] MEDS: ATORVASTATIN 40 MG TAB PO SCH (22:05)
[2016-07-13] MEDS: GABAPENTIN 300 MG CAP PO SCH (22:06)
[2016-07-13] MEDS: CARVEDILOL 3.125 MG TAB PO SCH (22:06)
[2016-07-14] VITALS (9 sets, daily range): BP systolic 88–122; BP diastolic 50–66; PULSE 72–96; RESP 18–20; TEMP 97.2–98; O2SAT 91–97
[2016-07-14] MEDS: INSULIN ASPART SUPPLEMENTAL SCALE SQ SCH ×4 (06:32→21:16)
--- NOTE | 2016-07-14 08:08 | HHI.PR ---
Subjective Remarks Follow up for syncope, new onset CHF. The patient reports feeling better today. He slept well last night, denies orthopnea. Denies any lightheadedness, dizziness, chest pain, or palpitations. He reports mild shortness of breath that is at his baseline. He believes his leg swelling has improved. He has no other medical complaints at this time. Objective Vitals Vital Signs Date Time Temp Pulse Resp B/P Pulse Ox O2 Delivery O2 Flow Rate FiO2 07/14/16 07:25 97.5 76 20 103/56 94 101/51 99/55 07/14/16 07:25 92 Nasal Cannula 2.00 07/14/16 05:52 98.0 18 88/66 94 98/62 96/50 07/14/16 02:01 74 07/13/16 23:36 98.7 64 18 105/56 95 103/63 101/55 07/13/16 20:06 96.4 74 18 109/55 98 106/58 106/54 07/13/16 15:21 97.8 82 19 114/68 95 07/13/16 11:19 97.6 77 19 133/63 96 07/13/16 09:04 Nasal Cannula 2.00 07/13/16 08:32 98 Nasal Cannula 4.00 07/13/16 08:08 68 I/O 07/13/16 07/13/16 07/13/16 07/14/16 07/14/16 07/14/16 07:00 15:00 23:00 07:00 15:00 23:00 Intake Total 350 ml 480 ml 500 ml Output Total 400 ml 1350 ml 500 ml Balance -400 ml -1000 ml -20 ml 500 ml Intake Oral 350 ml 480 ml 500 ml Output Urine Total 400 ml 1350 ml 500 ml # Voids 1 Result Diagram: 07/13/167 07/13/16316 Imaging Last Impressions Chest X-Ray 07/12/161422 Signed Impressions: Service Date/Time: Tuesday, July 12, 2016 14:52 - CONCLUSION: 1. Cardiomegaly with mild positive fluid balance. Loy Arshad MD CT Angiography 07/12/161422 Signed Impressions: Service Date/Time: Tuesday, July 12, 2016 15:48 - CONCLUSION: 1. Advanced pulmonary fibrosis. 2. No pulmonary embolus Francisco Javier Noonan MD Objective Remarks GENERAL: Well-nourished, well-developed pleasant elderly male patient in NAD. SKIN: Warm and dry. No rash. HEENT: Normocephalic. Atraumatic. Pupils equal and round. Mucous membranes pink and moist. NECK: Supple. Trachea midline. CARDIOVASCULAR: Regular rate and rhythm. S1, S2 noted. No murmur appreciated. RESPIRATORY: No accessory muscle use. Crackles at bilateral bases, otherwise clear to auscultation. Breath sounds equal bilaterally. GASTROINTESTINAL: Abdomen soft, non-tender, nondistended. Normoactive bowel sounds x4. MUSCULOSKELETAL: No obvious deformities. 1+ BLE edema. NEUROLOGICAL: Awake and alert. No obvious cranial nerve deficits. Motor grossly within normal limits. Normal speech. PSYCHIATRIC: Appropriate mood and affect; insight and judgment normal. Medications and IVs Current Medications Medications (Trade) Dose Ordered Sig/Gian Route Start Time Stop Time Status Last Admin (NS Flush) 2 ml UNSCH PRN IV FLUSH 07/12/16 17:30 (NS Flush) 2 ml BID IV FLUSH 07/12/16 21:00 07/13/16 21:00 (Tylenol) 650 mg Q4H PRN PO 07/12/16 17:30 (Zofran Inj) 4 mg Q6H PRN IVP 07/12/16 17:30 (Restoril) 15 mg HS PRN PO 07/12/16 17:30 (Narcan Inj) 0.4 mg UNSCH PRN IV 07/12/16 17:30 (Lasix Inj) 20 mg BID@09,18 IV PUSH 07/12/16 18:00 07/13/16 17:13 (D50w (Vial) Inj) 50 ml UNSCH PRN IV 07/12/16 17:30 (Glucagon Inj) 1 mg UNSCH PRN OTHER 07/12/16 17:30 (Tylenol-Codeine #3) 1 tab Q6HR PRN PO 07/12/16 18:30 (Lipitor) 40 mg HS PO 07/12/16 21:00 07/13/16 22:05 (Neurontin) 300 mg HS PO 07/12/16 21:00 07/13/16 22:06 (Levemir Inj) 25 units HS SQ 07/12/16 21:00 07/13/16 22:03 (Xarelto) 20 mg DAILY PO 07/13/16 09:00 07/13/16 08:58 (Protonix) 20 mg DAILY PO 07/13/16 09:00 07/13/16 08:58 Patient Own Medication PT OWN MED: Polyethylene Glycol-Propyl... BID PRN EACH EYE 07/12/16 18:30 Hold Patient Own Medication PT OWN MED: Lipo... BID PRN EACH EYE 07/12/16 18:30 Hold (Coreg) 3.125 mg Q12HR PO 07/13/16 21:00 07/13/16 22:06 A/P Problem List: (1) New onset of congestive heart failure ICD Code: I50.9 Status: Acute (2) Syncope ICD Code: R55 Status: Acute (3) Pulmonary fibrosis ICD Code: J84.10 Status: Acute (4) Atrial fibrillation ICD Code: I48.91 Status: Acute (5) DM (diabetes mellitus) ICD Code: E11.9 Status: Acute Assessment and Plan 70-year-old male with past medical history of HTN, A. fib, CVA, DM, HLD, GERD who presented after a syncopal episode Syncope: Suspect multifactorial. -Orthostatic positive in the ED, counseled on slow transitions, FERNANDO hose. Monitor orthostatics, improved. -Also suspect component of hypoxia from underlying CHF, COPD, and pulmonary fibrosis. Treat underlying etiologies as below. -Troponin 0.07, 0.09, 0.07, flat, nonischemic, likely due to renal dysfunction and CHF. EKG with A. fib and PVCs. -Monitor telemetry. -Echocardiogram with EF 20-25%, mild-mod TR New Onset Systolic CHF: CXR with mild pulmonary edema. +BLE edema on exam. SILVERMAN and orthopnea by history. BNP elevated at 501. -Continue diuresis with IV Lasix 20mg bid. -Monitor strict I's and O's. -Echocardiogram with EF 20-25%. -start on Coreg at 3.125mg bid however caution with hypotension, unable to start URIEL secondary to low BP -Consulted cardiology, appreciate recommendations. Pulmonary fibrosis with possible underlying COPD: Pulmonary angiogram with no PE , however shows advanced pulmonary fibrosis. Patient also had recent outpatient chest CT showing pulmonary fibrosis. -Supplemental O2 and nebs as needed. -Patient failed home oxygen walk test, O2 sat dropped to 83%, will require home O2 at discharge, order placed -[facility] has already referred him to pulmonology at [facility] as outpatient. -cardiology requesting pulmonology evaluation, will consult pulm Diabetes mellitus: Hemoglobin A1c 7.9. -Hold home oral hypoglycemics for now. -Monitor Accu-Cheks. SSI coverage as needed. -Continue home basal insulin. -Continue gabapentin for neuropathy. JOSELUIS vs CKD: Creatinine 1.32, no previous labs for comparison. Creatinine improved to 1.13 with diuresis, likely cardiorenal. -Diuresis as above. -Follow-up BMP, improved. Atrial fibrillation: Chronic, EKG shows Afib. Rate controlled. -Continue anticoagulation with Xarelto. DVT Prophylaxis: on Xarelto Problem Qualifiers (1) Syncope: Qualified Code: R55 - Syncope, unspecified syncope type Glenis Brooks PA-C Jul 14, 2016 08:08
[2016-07-14] MEDS: RIVAROXABAN 20 MG TAB PO SCH (09:20)
[2016-07-14] MEDS: SODIUM CHLORIDE 0.9% FLUSH 10 ML FLUSH IV FLUSH SCH ×2 (09:20→21:00)
[2016-07-14] MEDS: PANTOPRAZOLE SOD 20 MG DELAYED RELEASE TAB PO SCH (09:20)
[2016-07-14] MEDS: FUROSEMIDE 20 MG/2 ML VIAL IV PUSH SCH ×2 (09:21→17:51)
[2016-07-14] MEDS: CARVEDILOL 3.125 MG TAB PO SCH ×2 (09:21→21:17)
[2016-07-14] MEDS ORDERED: OXYGENDME NAS.CANULA (12:57)
[2016-07-14] MEDS: ACETAMINOPHEN/CODEINE 300 MG/30 MG TAB PO PRN ×2 (16:21→22:10)
--- NOTE | 2016-07-14 16:31 | PD.CARD.PN ---
Subjective Subjective Remarks No CP, less SOB, still w LE edema Objective Medications Current Medications Medications (Trade) Dose Ordered Sig/Gian Route Start Time Stop Time Status Last Admin (NS Flush) 2 ml UNSCH PRN IV FLUSH 07/12/16 17:30 (NS Flush) 2 ml BID IV FLUSH 07/12/16 21:00 07/14/16 09:20 (Tylenol) 650 mg Q4H PRN PO 07/12/16 17:30 (Zofran Inj) 4 mg Q6H PRN IVP 07/12/16 17:30 (Restoril) 15 mg HS PRN PO 07/12/16 17:30 (Narcan Inj) 0.4 mg UNSCH PRN IV 07/12/16 17:30 (Lasix Inj) 20 mg BID@18 IV PUSH 07/12/16 18:00 07/14/16 09:21 (D50w (Vial) Inj) 50 ml UNSCH PRN IV 07/12/16 17:30 (Glucagon Inj) 1 mg UNSCH PRN OTHER 07/12/16 17:30 (Tylenol-Codeine #3) 1 tab Q6HR PRN PO 07/12/16 18:30 07/14/16 16:21 (Lipitor) 40 mg HS PO 07/12/16 21:00 07/13/16 22:05 (Neurontin) 300 mg HS PO 07/12/16 21:00 07/13/16 22:06 (Levemir Inj) 25 units HS SQ 07/12/16 21:00 07/13/16 22:03 (Xarelto) 20 mg DAILY PO 07/13/16 09:00 07/14/16 09:20 (Protonix) 20 mg DAILY PO 07/13/16 09:00 07/14/16 09:20 Patient Own Medication PT OWN MED: Polyethylene Glycol-Propyl... BID PRN EACH EYE 07/12/16 18:30 Hold Patient Own Medication PT OWN MED: Lipo... BID PRN EACH EYE 07/12/16 18:30 Hold (Coreg) 3.125 mg Q12HR PO 07/13/16 21:00 07/14/16 09:21 Vital Signs / I&O Vital Signs Date Time Temp Pulse Resp B/P Pulse Ox O2 Delivery O2 Flow Rate FiO2 07/14/16 13:19 72 93 07/14/16 11:59 97.5 73 19 107/60 93 07/14/16 09:45 6.00 07/14/16 08:30 Nasal Cannula 2.00 07/14/16 07:56 96 07/14/16 07:25 97.5 76 20 103/56 94 101/51 99/55 07/14/16 07:25 92 Nasal Cannula 2.00 07/14/16 05:52 98.0 18 88/66 94 98/62 96/50 07/14/16 02:01 74 07/13/16 23:36 98.7 64 18 105/56 95 103/63 101/55 07/13/16 20:06 96.4 74 18 109/55 98 106/58 106/54 I/O 07/13/16 07/13/16 07/13/16 07/14/16 07/14/16 07/14/16 07:00 15:00 23:00 07:00 15:00 23:00 Intake Total 350 ml 480 ml 500 ml Output Total 400 ml 1350 ml 500 ml Balance -400 ml -1000 ml -20 ml 500 ml Intake Oral 350 ml 480 ml 500 ml Output Urine Total 400 ml 1350 ml 500 ml # Voids 1 Physical Exam GENERAL: In NAD SKIN: Warm and dry. HEAD: Normocephalic. EYES: No scleral icterus. No injection or drainage. NECK: Supple, trachea midline. No JVD or lymphadenopathy. CARDIOVASCULAR: Regular rate 1/6 syst murmur, no gallops, or rubs. RESPIRATORY: Breath sounds equal bilaterally. No accessory muscle use. GASTROINTESTINAL: Abdomen soft, non-tender, nondistended. MUSCULOSKELETAL: No cyanosis, 1-2+ pretib edema. Laboratory Current Medications Medications (Trade) Dose Ordered Sig/Gian Route Start Time Stop Time Status Last Admin (NS Flush) 2 ml UNSCH PRN IV FLUSH 07/12/16 17:30 (NS Flush) 2 ml BID IV FLUSH 07/12/16 21:00 07/14/16 09:20 (Tylenol) 650 mg Q4H PRN PO 07/12/16 17:30 (Zofran Inj) 4 mg Q6H PRN IVP 07/12/16 17:30 (Restoril) 15 mg HS PRN PO 07/12/16 17:30 (Narcan Inj) 0.4 mg UNSCH PRN IV 07/12/16 17:30 (Lasix Inj) 20 mg BID@09,18 IV PUSH 07/12/16 18:00 07/14/16 09:21 (D50w (Vial) Inj) 50 ml UNSCH PRN IV 07/12/16 17:30 (Glucagon Inj) 1 mg UNSCH PRN OTHER 07/12/16 17:30 (Tylenol-Codeine #3) 1 tab Q6HR PRN PO 07/12/16 18:30 07/14/16 16:21 (Lipitor) 40 mg HS PO 07/12/16 21:00 07/13/16 22:05 (Neurontin) 300 mg HS PO 07/12/16 21:00 07/13/16 22:06 (Levemir Inj) 25 units HS SQ 07/12/16 21:00 07/13/16 22:03 (Xarelto) 20 mg DAILY PO 07/13/16 09:00 07/14/16 09:20 (Protonix) 20 mg DAILY PO 07/13/16 09:00 07/14/16 09:20 Patient Own Medication PT OWN MED: Polyethylene Glycol-Propyl... BID PRN EACH EYE 07/12/16 18:30 Hold Patient Own Medication PT OWN MED: Lipo... BID PRN EACH EYE 07/12/16 18:30 Hold (Coreg) 3.125 mg Q12HR PO 07/13/16 21:00 07/14/16 09:21 Imaging Last Impressions Chest X-Ray 07/12/161422 Signed Impressions: Service Date/Time: Tuesday, July 12, 2016 14:52 - CONCLUSION: 1. Cardiomegaly with mild positive fluid balance. Loy Arshad MD CT Angiography 07/12/161422 Signed Impressions: Service Date/Time: Tuesday, July 12, 2016 15:48 - CONCLUSION: 1. Advanced pulmonary fibrosis. 2. No pulmonary embolus Francisco Javier Noonan MD Assessment and Plan Problem List: (1) New onset of congestive heart failure (2) Cardiomyopathy (3) Syncope (4) Atrial fibrillation (5) Pulmonary fibrosis (6) DM (diabetes mellitus) Assessment and Plan Echo w severe LV systolic dysfunction. Schedule adenosine nuclear myocardial study to evaluate his ischemic burden. Continue and titrate tx for CHF, monitor renal fx. Recommend pulmonary eval for pulm fibrosis. Continue monitoring. Increase activity. Problem Qualifiers (1) Syncope: Qualified Code: R55 - Syncope, unspecified syncope type Blaine Carcamo MD Jul 14, 2016 16:31
[2016-07-14] MEDS ORDERED: PILL SPLITTER OTHER PRN (17:15)
[2016-07-14] MEDS: LISINOPRIL 5 MG TAB PO SCH (17:15)
[2016-07-14] MEDS: INSULIN DETEMIR 100 UNITS/ML VIAL SQ SCH (21:16)
[2016-07-14] MEDS: ATORVASTATIN 40 MG TAB PO SCH (21:17)
[2016-07-14] MEDS: GABAPENTIN 300 MG CAP PO SCH (21:17)
[2016-07-15] VITALS (7 sets, daily range): BP systolic 87–104; BP diastolic 48–63; PULSE 71–95; RESP 16–22; TEMP 97.2–97.8; O2SAT 93–96
[2016-07-15] MEDS: INSULIN ASPART SUPPLEMENTAL SCALE SQ SCH ×4 (06:33→21:06)
[2016-07-15 09:44] LABS: BICARBONATE 29.4 MEQ/L (21.0-32.0)
[2016-07-15] MEDS ORDERED: REGADENOSON INJ 0.4 MG/5 ML SYR ONE (09:51)
--- NOTE | 2016-07-15 12:13 | RADRPT ---
EXAM DATE/TIME: 07/15/2016 09:07 [place] COMPARISON: No previous studies available for comparison. INDICATIONS : Syncopal episode after being dizzy. Shortness of breath over the last month. Elevated troponins. DOSE: 30.8 mCi Tc99m Myoview at stress. 10.1 mCi Tc99m Myoview at rest. 0.4 mg Lexiscan STRESS SYMPTOMS: Dyspnea. EJECTION FRACTION: 38% MEDICAL HISTORY : Hypertension. Diabetes mellitus type 2. Stroke. SURGICAL HISTORY : Tonsillectomy. CABG Heart valve replacement. ENCOUNTER: Initial ACUITY: 2 days PAIN SCALE: 0/10 LOCATION: chest TECHNIQUE: The patient underwent pharmacologic stress with infusion of prescribed dose. Continuous ECG tracing was monitored during stress. Gated SPECT imaging was performed after stress and conventional SPECT i maging was performed at rest. The examination was performed on a SPECT/CT scanner, both attenuation and non-corrected datasets were reviewed. FINDINGS: The best perfused myocardium is the anterior nasal segment. The large fixed defect involving the ant erior inferior wall extending from mid wall to base. The ventricular cavity is dilated. There is minimal redistribution the high septal wall. The ejection fraction is 36% with markedly abnormal wall motion inferior wall towards the base. The septal wall is akinetic. CONCLUSION: Stress-induced redistribution consistent with ischemia with significant wall motion abnormality basal inferior wall RISK CATEGORY: High (>3% Annual Mortality Rate) Markie Noonan MD FACR on July 15, 2016 at 12:07 Board Certified Radiologist. This report was verified electronically.
[2016-07-15] MEDS: PANTOPRAZOLE SOD 20 MG DELAYED RELEASE TAB PO SCH (13:08)
[2016-07-15] MEDS: CARVEDILOL 3.125 MG TAB PO SCH ×2 (13:08→21:00)
[2016-07-15] MEDS: LISINOPRIL 5 MG TAB PO SCH (13:09)
[2016-07-15] MEDS: FUROSEMIDE 20 MG/2 ML VIAL IV PUSH SCH ×2 (13:09→17:06)
[2016-07-15] MEDS: RIVAROXABAN 20 MG TAB PO SCH (13:09)
[2016-07-15] MEDS: SODIUM CHLORIDE 0.9% FLUSH 10 ML FLUSH IV FLUSH SCH ×2 (13:27→21:10)
[2016-07-15 14:48] LABS: BLOOD GAS BASE EXCESS 1.5 mmol/L (-2-2); BLOOD GAS CARBOXYHEMOGLOBIN 1.5 % (0-4); BLOOD GAS HCO3 26 mmol/L (22-26); BLOOD GAS METHEMOGLOBIN 1.3 % (0-2); BLOOD GAS O2 HGB SATURATION 78 % (90-100); BLOOD GAS OXYGEN CONTENT 12.1 Vol % (12.0-20.0); BLOOD GAS PCO2 43 mmHg (38-42); BLOOD GAS PO2 48 mmHg (61-120); CRITICAL VALUE YES; FIO2 21 %; OXYGEN DEVICE ROOM AIR; TEMP CORR TO 98.6
[2016-07-15 14:49] LABS: DRAW SITE RT RADIAL; NUMBER OF ARTERIAL PUNCTURES 1; STAT NO; ULNAR PULSE PRESENT
--- NOTE | 2016-07-15 16:24 | PD.CARD.PN ---
Subjective Subjective Remarks No CP, mild SOB Objective Medications Current Medications Medications (Trade) Dose Ordered Sig/Gian Route Start Time Stop Time Status Last Admin (NS Flush) 2 ml UNSCH PRN IV FLUSH 07/12/16 17:30 (NS Flush) 2 ml BID IV FLUSH 07/12/16 21:00 07/15/16 13:27 (Tylenol) 650 mg Q4H PRN PO 07/12/16 17:30 (Zofran Inj) 4 mg Q6H PRN IVP 07/12/16 17:30 (Restoril) 15 mg HS PRN PO 07/12/16 17:30 (Narcan Inj) 0.4 mg UNSCH PRN IV 07/12/16 17:30 (Lasix Inj) 20 mg BID@,18 IV PUSH 07/12/16 18:00 07/15/16 13:09 (D50w (Vial) Inj) 50 ml UNSCH PRN IV 07/12/16 17:30 (Glucagon Inj) 1 mg UNSCH PRN OTHER 07/12/16 17:30 (Tylenol-Codeine #3) 1 tab Q6HR PRN PO 07/12/16 18:30 07/14/16 22:10 (Lipitor) 40 mg HS PO 07/12/16 21:00 07/14/16 21:17 (Neurontin) 300 mg HS PO 07/12/16 21:00 07/14/16 21:17 (Levemir Inj) 25 units HS SQ 07/12/16 21:00 07/14/16 21:16 (Xarelto) 20 mg DAILY PO 07/13/16 09:00 07/15/16 13:09 (Protonix) 20 mg DAILY PO 07/13/16 09:00 07/15/16 13:08 Patient Own Medication PT OWN MED: Polyethylene Glycol-Propyl... BID PRN EACH EYE 07/12/16 18:30 Hold Patient Own Medication PT OWN MED: Lipo... BID PRN EACH EYE 07/12/16 18:30 Hold (Coreg) 3.125 mg Q12HR PO 07/13/16 21:00 07/15/16 13:08 (Prinivil) 2.5 mg DAILY PO 07/14/16 17:15 07/15/16 13:09 (Pill Splitter) 1 ea UNSCH PRN OTHER 07/14/16 17:15 Vital Signs / I&O Vital Signs Date Time Temp Pulse Resp B/P Pulse Ox O2 Delivery O2 Flow Rate FiO2 07/15/16 12:00 97.5 95 16 100/59 96 07/15/16 08:00 97.4 73 16 88/53 93 07/15/16 08:00 78 07/15/16 08:00 96 Nasal Cannula 3.00 07/15/16 04:00 97.2 77 20 104/56 94 07/15/16 00:00 97.3 71 20 93/63 95 07/14/16 20:15 77 07/14/16 20:00 97.2 78 20 108/60 97 07/14/16 19:35 Nasal Cannula 3.00 I/O 07/14/16 07/14/16 07/14/16 07/15/16 07/15/16 07/15/16 07:00 15:00 23:00 07:00 15:00 23:00 Intake Total 500 ml 220 ml 320 ml Output Total 475 ml 200 ml 1500 ml Balance 500 ml -475 ml 20 ml -1180 ml Intake Oral 500 ml 220 ml 320 ml Output Urine Total 475 ml 200 ml 1500 ml # Bowel Movements 0 0 Physical Exam GENERAL: In NAD SKIN: Warm and dry. HEAD: Normocephalic. EYES: No scleral icterus. No injection or drainage. NECK: Supple, trachea midline. No JVD or lymphadenopathy. CARDIOVASCULAR: Regular rate 1/6 syst murmur, no gallops, or rubs. RESPIRATORY: Breath sounds equal bilaterally. No accessory muscle use. GASTROINTESTINAL: Abdomen soft, non-tender, nondistended. MUSCULOSKELETAL: No cyanosis, 1+ pretib edema. Laboratory Laboratory Tests Test 07/15/16 07/15/16 07/15/16 07:08 13:01 14:40 Sodium Level 139 MEQ/L Potassium Level 4.0 MEQ/L Chloride Level 101 MEQ/L Carbon Dioxide Level 29.4 MEQ/L Anion Gap 9 MEQ/L Blood Urea Nitrogen 28 MG/DL Creatinine 1.01 MG/DL Estimat Glomerular Filtration 73 ML/MIN Rate Random Glucose 85 MG/DL Calcium Level 8.8 MG/DL D-Dimer Quantitative (PE/DVT) 0.46 MG/L FEU Blood Gas Puncture Site RT RADIAL Blood Gas Patient Temperature 98.6 Blood Gas HCO3 26 mmol/L Blood Gas Base Excess 1.5 mmol/L Blood Gas Oxygen Saturation 78 % Arterial Blood pH 7.40 Arterial Blood Partial 43 mmHg Pressure CO2 Arterial Blood Partial 48 mmHg Pressure O2 Arterial Blood Oxygen Content 12.1 Vol % Arterial Blood 1.5 % Carboxyhemoglobin Arterial Blood Methemoglobin 1.3 % Blood Gas Hemoglobin 11.0 G/DL Oxygen Delivery Device ROOM AIR Blood Gas Inspired Oxygen 21 % Imaging Last Impressions Myocardial Perfusion Scan Nuc Med 07/15/16 0000 Signed Impressions: Service Date/Time: Friday, July 15, 2016 09:07 - CONCLUSION: Stress- induced redistribution consistent with ischemia with significant wall motion abnormality basal inferior wall RISK CATEGORY: High (>3%% Annual Mortality Rate) Markie Noonan MD FACR Chest X-Ray 07/12/16 076 Signed Impressions: Service Date/Time: Tuesday, July 12, 2016 14:52 - CONCLUSION: 1. Cardiomegaly with mild positive fluid balance. Loy Arshad MD CT Angiography 07/12/16 703 Signed Impressions: Service Date/Time: Tuesday, July 12, 2016 15:48 - CONCLUSION: 1. Advanced pulmonary fibrosis. 2. No pulmonary embolus Francisco Javier Noonan MD Assessment and Plan Problem List: (1) New onset of congestive heart failure (2) Cardiomyopathy (3) Syncope (4) Atrial fibrillation (5) Pulmonary fibrosis (6) DM (diabetes mellitus) (7) CAD (coronary artery disease) Assessment and Plan Echo w severe LV systolic dysfunction. Nuc ST shows inferobasal ischemia. Continue and titrate tx for CHF, monitor renal fx. Pulmonary eval in progress. Continue monitoring. Increase activity. Schedule cath/poss PCI on Sun. D/w pt and . Problem Qualifiers (1) Syncope: Qualified Code: R55 - Syncope, unspecified syncope type Blaine Carcamo MD Jul 15, 2016 16:24
--- NOTE | 2016-07-15 17:16 | HHI.PR ---
Subjective Remarks 70-year-old male with past medical history of HTN, A. fib, CVA, DM, HLD, GERD who presented after a syncopal episode. The patient states that last night he had a syncopal episode. He states that he stood up to a few steps and then felt lightheaded and dizzy like he was going to pass out. He subsequently lost consciousness for about 5 minutes. He states that he's been having problems breathing for the past month. He states that he's been on 3 courses of antibiotics which really haven't improved his breathing. He states that his shortness breath is worse whenever he exerts himself or whenever he bends over. He normally follows with physicians, including cardiology in [place] and plans to return there after discharge. He denies ever being diagnosed with congestive heart failure or COPD. He does state that his diabetes medicine specialist recently decreased his Lasix dose. He states that he takes Lasix for lower extremity swelling. He quit smoking in 1980. 07/15: stable in his bedroom no nausea, vomit or diarrhea, awaiting recommendations by home staging specialist, Status post Stress test abnormal, Echocardiogram with EF 20 to 25%, as per Cardiology Severe Left Ventricular dysfunction, to continue to titrate CHF medicines, follow Pulmonary evaluation and Schedule Cath possible PCI for Sunday07/17/16. Objective Vital Signs Date Time Temp Pulse Resp B/P Pulse Ox O2 Delivery O2 Flow Rate FiO2 07/15/16 12:00 92/48 07/15/16 12:00 96/51 07/15/16 12:00 97.5 95 16 100/59 96 07/15/16 08:00 97.4 73 16 88/53 93 07/15/16 08:00 78 07/15/16 08:00 96 Nasal Cannula 3.00 07/15/16 04:00 97.2 77 20 104/56 94 07/15/16 00:00 97.3 71 20 93/63 95 07/14/16 20:15 77 07/14/16 20:00 97.2 78 20 108/60 97 07/14/16 19:35 Nasal Cannula 3.00 I/O 07/14/16 07/14/16 07/14/16 07/15/16 07/15/16 07/15/16 07:00 15:00 23:00 07:00 15:00 23:00 Intake Total 500 ml 220 ml 320 ml Output Total 475 ml 200 ml 1500 ml Balance 500 ml -475 ml 20 ml -1180 ml Intake Oral 500 ml 220 ml 320 ml Output Urine Total 475 ml 200 ml 1500 ml # Bowel Movements 0 0 Result Diagram: 07/13/16 0317 07/15/16 0708 Imaging Last Impressions Myocardial Perfusion Scan Nuc Med 07/15/16 0000 Signed Impressions: Service Date/Time: Friday, July 15, 2016 09:07 - CONCLUSION: Stress- induced redistribution consistent with ischemia with significant wall motion abnormality basal inferior wall RISK CATEGORY: High (>3%% Annual Mortality Rate) Markie Noonan MD FACR Chest X-Ray 07/12/161422 Signed Impressions: Service Date/Time: Tuesday, July 12, 2016 14:52 - CONCLUSION: 1. Cardiomegaly with mild positive fluid balance. Loy Arshad MD CT Angiography 07/12/161422 Signed Impressions: Service Date/Time: Tuesday, July 12, 2016 15:48 - CONCLUSION: 1. Advanced pulmonary fibrosis. 2. No pulmonary embolus Francisco Javier Noonan MD Procedures Stress test Other Results Laboratory Tests Test 07/12/16 07/12/16 07/13/16 07/15/16 14:30 20:30 03:17 07:08 Prothrombin Time 16.4 SEC Prothromb Time International 1.5 RATIO Ratio Activated Partial 32.7 SEC Thromboplast Time Magnesium Level 2.3 MG/DL B-Type Natriuretic Peptide 501 PG/ML Hemoglobin A1c 7.9 % White Blood Count 7.9 TH/MM3 Red Blood Count 4.79 MIL/MM3 Hemoglobin 11.3 GM/DL Hematocrit 36.4 % Mean Corpuscular Volume 76.1 FL Mean Corpuscular Hemoglobin 23.7 PG Mean Corpuscular Hemoglobin 31.1 % Concent Red Cell Distribution Width 18.2 % Platelet Count 277 TH/MM3 Mean Platelet Volume 8.1 FL Neutrophils (%) (Auto) 68.0 % Lymphocytes (%) (Auto) 17.3 % Monocytes (%) (Auto) 9.9 % Eosinophils (%) (Auto) 3.8 % Basophils (%) (Auto) 1.0 % Neutrophils # (Auto) 5.4 TH/MM3 Lymphocytes # (Auto) 1.4 TH/MM3 Monocytes # (Auto) 0.8 TH/MM3 Eosinophils # (Auto) 0.3 TH/MM3 Basophils # (Auto) 0.1 TH/MM3 CBC Comment DIFF FINAL Differential Comment Total Bilirubin 0.5 MG/DL Aspartate Amino Transf 33 U/L (AST/SGOT) Alanine Aminotransferase 27 U/L (ALT/SGPT) Alkaline Phosphatase 90 U/L Total Creatine Kinase 95 U/L Troponin I 0.07 NG/ML Total Protein 6.8 GM/DL Albumin 3.2 GM/DL Sodium Level 139 MEQ/L Potassium Level 4.0 MEQ/L Chloride Level 101 MEQ/L Carbon Dioxide Level 29.4 MEQ/L Anion Gap 9 MEQ/L Blood Urea Nitrogen 28 MG/DL Creatinine 1.01 MG/DL Estimat Glomerular Filtration 73 ML/MIN Rate Random Glucose 85 MG/DL Calcium Level 8.8 MG/DL Test 07/15/16 07/15/16 13:01 14:40 D-Dimer Quantitative (PE/DVT) 0.46 MG/L FEU Blood Gas Puncture Site RT RADIAL Blood Gas Patient Temperature 98.6 Blood Gas HCO3 26 mmol/L Blood Gas Base Excess 1.5 mmol/L Blood Gas Oxygen Saturation 78 % Arterial Blood pH 7.40 Arterial Blood Partial 43 mmHg Pressure CO2 Arterial Blood Partial 48 mmHg Pressure O2 Arterial Blood Oxygen Content 12.1 Vol % Arterial Blood 1.5 % Carboxyhemoglobin Arterial Blood Methemoglobin 1.3 % Blood Gas Hemoglobin 11.0 G/DL Oxygen Delivery Device ROOM AIR Blood Gas Inspired Oxygen 21 % Objective Remarks GENERAL: Well-developed well-nourished. In no acute distress. SKIN: Warm and dry. No lesions noted. HEENT: Normocephalic. Pupils equal and round. Mucous membranes pink and moist. CARDIOVASCULAR: Regular rate and rhythm. 2/6 systolic murmur appreciated. RESPIRATORY: No accessory muscle use. Decreased breath sounds in the bilateral lung bases. No wheezing. GASTROINTESTINAL: Abdomen soft, non-tender, nondistended. Bowel sounds x4. MUSCULOSKELETAL: No obvious deformities. No clubbing or cyanosis. 1+ edema. NEUROLOGICAL: Awake and alert. No focal neurological deficits. Moves upper and lower extremities spontaneously. Normal speech. PSYCHIATRIC: Appropriate mood and affect; insight and judgment normal. Medications and IVs Current Medications Medications (Trade) Dose Ordered Sig/Gian Route Start Time Stop Time Status Last Admin (NS Flush) 2 ml UNSCH PRN IV FLUSH 07/12/16 17:30 (NS Flush) 2 ml BID IV FLUSH 07/12/16 21:00 07/15/16 13:27 (Tylenol) 650 mg Q4H PRN PO 07/12/16 17:30 (Zofran Inj) 4 mg Q6H PRN IVP 07/12/16 17:30 (Restoril) 15 mg HS PRN PO 07/12/16 17:30 (Narcan Inj) 0.4 mg UNSCH PRN IV 07/12/16 17:30 (Lasix Inj) 20 mg BID@09,18 IV PUSH 07/12/16 18:00 07/15/16 13:09 (D50w (Vial) Inj) 50 ml UNSCH PRN IV 07/12/16 17:30 (Glucagon Inj) 1 mg UNSCH PRN OTHER 07/12/16 17:30 (Tylenol-Codeine #3) 1 tab Q6HR PRN PO 07/12/16 18:30 07/14/16 22:10 (Lipitor) 40 mg HS PO 07/12/16 21:00 07/14/16 21:17 (Neurontin) 300 mg HS PO 07/12/16 21:00 07/14/16 21:17 (Levemir Inj) 25 units HS SQ 07/12/16 21:00 07/14/16 21:16 (Xarelto) 20 mg DAILY PO 07/13/16 09:00 Hold 07/15/16 13:09 (Protonix) 20 mg DAILY PO 07/13/16 09:00 07/15/16 13:08 Patient Own Medication PT OWN MED: Polyethylene Glycol-Propyl... BID PRN EACH EYE 07/12/16 18:30 Hold Patient Own Medication PT OWN MED: Lipo... BID PRN EACH EYE 07/12/16 18:30 Hold (Coreg) 3.125 mg Q12HR PO 07/13/16 21:00 07/15/16 13:08 (Prinivil) 2.5 mg DAILY PO 07/14/16 17:15 07/15/16 13:09 (Pill Splitter) 1 ea UNSCH PRN OTHER 07/14/16 17:15 A/P Assessment and Plan 70-year-old male with past medical history of HTN, A. fib, CVA, DM, HLD, GERD who presented after a syncopal episode Syncope: Unclear etiology, probably multifactorial. Orthostatic positive in the ED. Also probably a component of hypoxia from underlying CHF and COPD. Troponin 0.07, likely due to renal dysfunction CHF, wEKG with A. fib and PVCs. Echocardiogram with Severe Left Ventricular Dysfunction EF 20-25% abnormal Stress test for Cardiac Cath for 09/16/16. New Onset of CHF with Severe LV Dysfunction EF 20-25 % for Cardiac Cath next Sunday07/17/16 Pulmonary fibrosis with possible underlying COPD: Pulmonary angiogram with no PE , however shows advanced pulmonary fibrosis. Supplemental O2 and nebs as needed. Pulmonary consult in progress. Diabetes mellitus: Hold home oral hypoglycemics for now. Continue home basal insulin. Monitor Accu-Cheks. SSI coverage as needed. Check hemoglobin A1c. Continue gabapentin for neuropathy. JOSELUIS vs CKD: Creatinine 1.32, no previous labs for comparison. Appears volume overloaded on exam. Diuresis as above. Follow-up BMP. Atrial fibrillation: Continue anticoagulations with Xarelto. Code Status Full code Discussed Condition With Patient and nurse Miss Sellers, all questions answered to the best of my abilities. Discharge Planning Continue full management by Cardiology and home staging specialist not yet clear for discharge. Kelvin Potts MD Jul 15, 2016 17:16 Full code Discussed Condition With Kelvin Potts MD Jul 15, 2016 17:16
--- NOTE | 2016-07-15 18:22 | MB ---
cc: MIHAELA TURNER DATE OF CONSULTATION 07/15/16 HISTORY OF PRESENT ILLNESS A 70-year-old white male who presented with syncope. This actually happened 24-48 hours before he presented to the emergency room. He recalls walking across his room feeling lightheaded and then he "blacked out." His was in the house, she found him, called a friend who called but the patient recovered consciousness, said that he felt fine and did not go to the hospital. When he was seen at the [place], however, they referred immediately to the hospital for evaluation. No recurrent syncope. I am asked to see him because he has had an abnormal CT scan and he has had gradually progressive dyspnea over the last 6-8 weeks. He has a history of hypertension, atrial fibrillation a previous stroke. He is diabetic and hyperlipidemic. This is the first episode of syncope that he has had. He has had several courses of antibiotics recently I presume through the [place] where he gets his primary care for this dyspnea and mild cough. He has produced some sputum. He has had no hemoptysis. He had no dyspnea or chest pain prior to the syncopal episode. He was a prior smoker. He smoked [id number] packs per day for about 20 years but quit smoking almost 30 years ago. No previous pulmonary diagnosis other than an episode of pneumonia at 50 years of age. PAST MEDICAL HISTORY Additional past history hypertension, diabetes, peripheral neuropathy, gastroesophageal reflux disease. He has had a previous bypass surgery and an aortic valve replacement. Those were done about 15 years ago and he had no pulmonary complications. He has also had a right carotid endarterectomy. ALLERGIES None. MEDICATIONS Reviewed and recorded in the EMR. SOCIAL HISTORY , living with his . Smoking noted. Rarely drinks alcohol. 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 No asbestos exposure. REVIEW OF SYSTEMS Review of systems other than that noted above he has had no chest pain. No swelling in his legs. No nausea, vomiting, abdominal pain, although, he has a history of reflux disease. He is not currently asymptomatic. PHYSICAL EXAMINATION GENERAL: Awake, alert, comfortable at rest. VITAL SIGNS: 97 degrees, pulse is 80, respirations are 18, blood pressure is 100/60 and on 3 liters his oxygen is 96%. HEENT: Sclerae anicteric. Mucous membranes are moist. NECK: Neck veins are flat. LUNGS He does have bibasilar rales, dry, velcro type. No congestion or wheezing. CARDIOVASCULAR: Regular rhythm. Soft systolic murmur. No audible S3. ABDOMEN: Abdomen is soft. EXTREMITIES: He has chronic venous stasis changes in the legs but very minimal pitting edema in the ankles. No cyanosis. IMAGING STUDIES CT angiogram on admission pulmonary fibrosis. No pulmonary embolism. LABORATORY DATA BUN 28, creatinine 1. BNP on presentation was 501. Arterial blood gas on room air his pO2 was 48, pH 7.4, pCO2 43, white counts normal at 7900, hemoglobin 11, D-dimer 0.46, INR 1.5. The patient had a nuclear perfusion scan today which reveals a stress-induced redistribution with significant wall motion abnormality in the basilar inferior wall. Cardiology is following him. DISCUSSION Mr. Harper appears to have some chronic changes in his lung. He was a distant former smoker. Precise etiology of progressive dyspnea over the last 6 to 8 weeks though it is unclear. He does not appear to be in significant respiratory difficulty at present. He does have ischemic heart disease, previous bypass and aortic valve replacement and appears to be in mild congestive heart failure at present which could account for all of his symptoms. He may have some underlying chronic disease of the lung as well with a mild superimposed pulmonary edema to account for the radiographic changes. There is no evidence of thromboembolic disease or pneumonia. I am sure he will have additional cardiovascular input at this point with the abnormal scan. I think his pulmonary workup could be accomplished as an outpatient once his cardiovascular status has been thoroughly reviewed and that workup is completed. He will need oxygen therapy at least for now, will continue that. Further diagnostic and/or therapeutic intervention will depend on his ongoing clinical course. R. MD ZOE Lyons/JADON /3:30 PM /5:57 PM
[2016-07-15] MEDS: ACETAMINOPHEN/CODEINE 300 MG/30 MG TAB PO PRN (19:21)
[2016-07-15] MEDS: INSULIN DETEMIR 100 UNITS/ML VIAL SQ SCH (21:07)
[2016-07-15] MEDS: GABAPENTIN 300 MG CAP PO SCH (21:09)
[2016-07-15] MEDS: ATORVASTATIN 40 MG TAB PO SCH (21:09)
[2016-07-16] VITALS (9 sets, daily range): BP systolic 85–105; BP diastolic 50–70; PULSE 66–80; RESP 18–20; TEMP 97.3–98.2; O2SAT 95–98
[2016-07-16] MEDS: INSULIN ASPART SUPPLEMENTAL SCALE SQ SCH ×4 (06:21→21:04)
[2016-07-16] MEDS: LISINOPRIL 5 MG TAB PO SCH (09:30)
[2016-07-16] MEDS: CARVEDILOL 3.125 MG TAB PO SCH ×2 (09:30→21:00)
[2016-07-16] MEDS: FUROSEMIDE 20 MG/2 ML VIAL IV PUSH SCH ×2 (09:31→17:24)
[2016-07-16] MEDS: PANTOPRAZOLE SOD 20 MG DELAYED RELEASE TAB PO SCH (09:31)
[2016-07-16] MEDS: ACETAMINOPHEN/CODEINE 300 MG/30 MG TAB PO PRN ×2 (09:36→17:25)
[2016-07-16] MEDS: SODIUM CHLORIDE 0.9% FLUSH 10 ML FLUSH IV FLUSH SCH ×2 (09:36→21:00)
--- NOTE | 2016-07-16 11:17 | HHI.PR ---
Subjective Remarks 70-year-old male with past medical history of HTN, A. fib, CVA, DM, HLD, GERD who presented after a syncopal episode. The patient states that last night he had a syncopal episode. He states that he stood up to a few steps and then felt lightheaded and dizzy like he was going to pass out. He subsequently lost consciousness for about 5 minutes. He states that he's been having problems breathing for the past month. He states that he's been on 3 courses of antibiotics which really haven't improved his breathing. He states that his shortness breath is worse whenever he exerts himself or whenever he bends over. He normally follows with physicians, including cardiology in [place] and plans to return there after discharge. He denies ever being diagnosed with congestive heart failure or COPD. He does state that his diabetes medicine specialist recently decreased his Lasix dose. He states that he takes Lasix for lower extremity swelling. He quit smoking in 1980. 07/15: Status post Stress test abnormal, Echocardiogram with EF 20 to 25%, Severe Left Ventricular dysfunction, to continue to titrate CHF medicines, follow Pulmonary evaluation and Schedule Cath possible PCI for Sunday07/17/16. 07/16: Seen in his bedroom and discussed with nurse Miss Sellers also his Friend and Dental medicine specialist in the room as per Patient asked to be talk in front of his friend. he will have Cardiac Cath for tomorrow. Objective Vital Signs Date Time Temp Pulse Resp B/P Pulse Ox O2 Delivery O2 Flow Rate FiO2 07/16/16 08:33 95 Nasal Cannula 3.00 07/16/16 08:00 95/53 07/16/16 08:00 97.7 72 18 105/57 96 07/16/16 08:00 96/54 07/16/16 04:00 Nasal Cannula 3.00 07/16/16 04:00 97.6 70 20 98/59 96 07/16/16 00:00 97.6 75 20 99/70 97 07/16/16 00:00 Nasal Cannula 3.00 07/15/16 20:00 77 07/15/16 20:00 97.8 83 22 89/63 94 87/59 100/60 Automatic Cuff 07/15/16 20:00 Nasal Cannula 3.00 07/15/16 17:36 96 Nasal Cannula 3.00 07/15/16 16:00 97.2 78 16 97/55 96 07/15/16 12:00 92/48 07/15/16 12:00 96/51 07/15/16 12:00 97.5 95 16 100/59 96 I/O 07/15/16 07/15/16 07/15/16 07/16/16 07/16/16 07/16/16 07:00 15:00 23:00 07:00 15:00 23:00 Intake Total 320 ml 480 ml 480 ml Output Total 1500 ml 500 ml 800 ml 600 ml Balance -1180 ml -20 ml -320 ml -600 ml Intake Oral 320 ml 480 ml 480 ml Output Urine Total 1500 ml 500 ml 800 ml 600 ml # Bowel Movements 0 1 Result Diagram: 07/13/16 0317 07/15/16 0708 Imaging Last Impressions Myocardial Perfusion Scan Nuc Med 07/15/16 0000 Signed Impressions: Service Date/Time: Friday, July 15, 2016 09:07 - CONCLUSION: Stress- induced redistribution consistent with ischemia with significant wall motion abnormality basal inferior wall RISK CATEGORY: High (>3%% Annual Mortality Rate) Markie Noonan MD FACR Chest X-Ray 07/12/161422 Signed Impressions: Service Date/Time: Tuesday, July 12, 2016 14:52 - CONCLUSION: 1. Cardiomegaly with mild positive fluid balance. Loy Arshad MD CT Angiography 07/12/161422 Signed Impressions: Service Date/Time: Tuesday, July 12, 2016 15:48 - CONCLUSION: 1. Advanced pulmonary fibrosis. 2. No pulmonary embolus Francisco Javier Noonan MD Procedures Stress test Other Results Laboratory Tests Test 07/12/16 07/12/16 07/13/16 07/15/16 14:30 20:30 03:17 07:08 Prothrombin Time 16.4 SEC Prothromb Time International 1.5 RATIO Ratio Activated Partial 32.7 SEC Thromboplast Time Magnesium Level 2.3 MG/DL B-Type Natriuretic Peptide 501 PG/ML Hemoglobin A1c 7.9 % White Blood Count 7.9 TH/MM3 Red Blood Count 4.79 MIL/MM3 Hemoglobin 11.3 GM/DL Hematocrit 36.4 % Mean Corpuscular Volume 76.1 FL Mean Corpuscular Hemoglobin 23.7 PG Mean Corpuscular Hemoglobin 31.1 % Concent Red Cell Distribution Width 18.2 % Platelet Count 277 TH/MM3 Mean Platelet Volume 8.1 FL Neutrophils (%) (Auto) 68.0 % Lymphocytes (%) (Auto) 17.3 % Monocytes (%) (Auto) 9.9 % Eosinophils (%) (Auto) 3.8 % Basophils (%) (Auto) 1.0 % Neutrophils # (Auto) 5.4 TH/MM3 Lymphocytes # (Auto) 1.4 TH/MM3 Monocytes # (Auto) 0.8 TH/MM3 Eosinophils # (Auto) 0.3 TH/MM3 Basophils # (Auto) 0.1 TH/MM3 CBC Comment DIFF FINAL Differential Comment Total Bilirubin 0.5 MG/DL Aspartate Amino Transf 33 U/L (AST/SGOT) Alanine Aminotransferase 27 U/L (ALT/SGPT) Alkaline Phosphatase 90 U/L Total Creatine Kinase 95 U/L Troponin I 0.07 NG/ML Total Protein 6.8 GM/DL Albumin 3.2 GM/DL Sodium Level 139 MEQ/L Potassium Level 4.0 MEQ/L Chloride Level 101 MEQ/L Carbon Dioxide Level 29.4 MEQ/L Anion Gap 9 MEQ/L Blood Urea Nitrogen 28 MG/DL Creatinine 1.01 MG/DL Estimat Glomerular Filtration 73 ML/MIN Rate Random Glucose 85 MG/DL Calcium Level 8.8 MG/DL Test 07/15/16 07/15/16 13:01 14:40 D-Dimer Quantitative (PE/DVT) 0.46 MG/L FEU Blood Gas Puncture Site RT RADIAL Blood Gas Patient Temperature 98.6 Blood Gas HCO3 26 mmol/L Blood Gas Base Excess 1.5 mmol/L Blood Gas Oxygen Saturation 78 % Arterial Blood pH 7.40 Arterial Blood Partial 43 mmHg Pressure CO2 Arterial Blood Partial 48 mmHg Pressure O2 Arterial Blood Oxygen Content 12.1 Vol % Arterial Blood 1.5 % Carboxyhemoglobin Arterial Blood Methemoglobin 1.3 % Blood Gas Hemoglobin 11.0 G/DL Oxygen Delivery Device ROOM AIR Blood Gas Inspired Oxygen 21 % Objective Remarks GENERAL: Well-developed well-nourished. In no acute distress. SKIN: Warm and dry. No lesions noted. HEENT: Normocephalic. Pupils equal and round. Mucous membranes pink and moist. CARDIOVASCULAR: Regular rate and rhythm. 2/6 systolic murmur appreciated. RESPIRATORY: No accessory muscle use. Decreased breath sounds in the bilateral lung bases. No wheezing. GASTROINTESTINAL: Abdomen soft, non-tender, nondistended. Bowel sounds x4. MUSCULOSKELETAL: No obvious deformities. No clubbing or cyanosis. 1+ edema. NEUROLOGICAL: Awake and alert. No focal neurological deficits. Moves upper and lower extremities spontaneously. Normal speech. PSYCHIATRIC: Appropriate mood and affect; insight and judgment normal. Medications and IVs Current Medications Medications (Trade) Dose Ordered Sig/Gian Route Start Time Stop Time Status Last Admin (NS Flush) 2 ml UNSCH PRN IV FLUSH 07/12/16 17:30 (NS Flush) 2 ml BID IV FLUSH 07/12/16 21:00 07/16/16 09:36 (Tylenol) 650 mg Q4H PRN PO 07/12/16 17:30 (Zofran Inj) 4 mg Q6H PRN IVP 07/12/16 17:30 (Restoril) 15 mg HS PRN PO 07/12/16 17:30 (Narcan Inj) 0.4 mg UNSCH PRN IV 07/12/16 17:30 (Lasix Inj) 20 mg BID@,18 IV PUSH 07/12/16 18:00 07/16/16 09:31 (D50w (Vial) Inj) 50 ml UNSCH PRN IV 07/12/16 17:30 (Glucagon Inj) 1 mg UNSCH PRN OTHER 07/12/16 17:30 (Tylenol-Codeine #3) 1 tab Q6HR PRN PO 07/12/16 18:30 07/16/16 09:36 (Lipitor) 40 mg HS PO 07/12/16 21:00 07/15/16 21:09 (Neurontin) 300 mg HS PO 07/12/16 21:00 07/15/16 21:09 (Levemir Inj) 25 units HS SQ 07/12/16 21:00 07/15/16 21:07 (Xarelto) 20 mg DAILY PO 07/13/16 09:00 Hold 07/15/16 13:09 (Protonix) 20 mg DAILY PO 07/13/16 09:00 07/16/16 09:31 Patient Own Medication PT OWN MED: Polyethylene Glycol-Propyl... BID PRN EACH EYE 07/12/16 18:30 Hold Patient Own Medication PT OWN MED: Lipo... BID PRN EACH EYE 07/12/16 18:30 Hold (Coreg) 3.125 mg Q12HR PO 07/13/16 21:00 07/16/16 09:30 (Prinivil) 2.5 mg DAILY PO 07/14/16 17:15 07/16/16 09:30 (Pill Splitter) 1 ea UNSCH PRN OTHER 07/14/16 17:15 A/P Assessment and Plan 70-year-old male with past medical history of HTN, A. fib, CVA, DM, HLD, GERD who presented after a syncopal episode Syncope: Unclear etiology, probably multifactorial. Orthostatic positive in the ED. Also probably a component of hypoxia from underlying CHF and COPD. Troponin 0.07, likely due to renal dysfunction CHF, wEKG with A. fib and PVCs. Echocardiogram with Severe Left Ventricular Dysfunction EF 20-25% abnormal Stress test for Cardiac Cath for 09/16/16. New Onset of CHF with Severe LV Dysfunction EF 20-25 % for Cardiac Cath next Sunday07/17/16 Pulmonary fibrosis with possible underlying COPD: Pulmonary angiogram with no PE , however shows advanced pulmonary fibrosis. seen by client renewal specialist Doctor Markie Hammer, recommended Oxygen therapy for now, depend of clinical course to continue workup. Diabetes mellitus: Hold home oral hypoglycemics for now. Continue home basal insulin. Monitor Accu-Cheks. SSI coverage as needed. hemoglobin A1C 7.9. Continue gabapentin for neuropathy. JOSELUIS IMproved. Atrial fibrillation: Continue anticoagulations with Xarelto. Code Status Full code Discussed Condition With Patient and his relative in the room allowed by patient to speak in front of him. and nurse Miss Sellers, all questions answered to the best of my abilities. Discharge Planning Continue full management by Cardiology and client renewal specialist not yet clear for discharge. Kelvin Potts MD Jul 16, 2016 11:17
--- NOTE | 2016-07-16 15:46 | PD.CARD.PN ---
Subjective Subjective Remarks No CP or SOB, feels better Objective Medications Current Medications Medications (Trade) Dose Ordered Sig/Gian Route Start Time Stop Time Status Last Admin (NS Flush) 2 ml UNSCH PRN IV FLUSH 07/12/16 17:30 (NS Flush) 2 ml BID IV FLUSH 07/12/16 21:00 07/16/16 09:36 (Tylenol) 650 mg Q4H PRN PO 07/12/16 17:30 (Zofran Inj) 4 mg Q6H PRN IVP 07/12/16 17:30 (Restoril) 15 mg HS PRN PO 07/12/16 17:30 (Narcan Inj) 0.4 mg UNSCH PRN IV 07/12/16 17:30 (Lasix Inj) 20 mg BID@,18 IV PUSH 07/12/16 18:00 07/16/16 09:31 (D50w (Vial) Inj) 50 ml UNSCH PRN IV 07/12/16 17:30 (Glucagon Inj) 1 mg UNSCH PRN OTHER 07/12/16 17:30 (Tylenol-Codeine #3) 1 tab Q6HR PRN PO 07/12/16 18:30 07/16/16 09:36 (Lipitor) 40 mg HS PO 07/12/16 21:00 07/15/16 21:09 (Neurontin) 300 mg HS PO 07/12/16 21:00 07/15/16 21:09 (Levemir Inj) 25 units HS SQ 07/12/16 21:00 07/15/16 21:07 (Xarelto) 20 mg DAILY PO 07/13/16 09:00 Hold 07/15/16 13:09 (Protonix) 20 mg DAILY PO 07/13/16 09:00 07/16/16 09:31 Patient Own Medication PT OWN MED: Polyethylene Glycol-Propyl... BID PRN EACH EYE 07/12/16 18:30 Hold Patient Own Medication PT OWN MED: Lipo... BID PRN EACH EYE 07/12/16 18:30 Hold (Coreg) 3.125 mg Q12HR PO 07/13/16 21:00 07/16/16 09:30 (Prinivil) 2.5 mg DAILY PO 07/14/16 17:15 07/16/16 09:30 (Pill Splitter) 1 ea UNSCH PRN OTHER 07/14/16 17:15 Vital Signs / I&O Vital Signs Date Time Temp Pulse Resp B/P Pulse Ox O2 Delivery O2 Flow Rate FiO2 07/16/16 12:00 97.3 74 18 99/56 98 07/16/16 08:33 95 Nasal Cannula 3.00 07/16/16 08:00 95/53 07/16/16 08:00 97.7 72 18 105/57 96 07/16/16 08:00 96/54 07/16/16 04:00 Nasal Cannula 3.00 07/16/16 04:00 97.6 70 20 98/59 96 07/16/16 00:00 97.6 75 20 99/70 97 07/16/16 00:00 Nasal Cannula 3.00 07/15/16 20:00 77 07/15/16 20:00 97.8 83 22 89/63 94 87/59 100/60 Automatic Cuff 07/15/16 20:00 Nasal Cannula 3.00 07/15/16 17:36 96 Nasal Cannula 3.00 07/15/16 16:00 97.2 78 16 97/55 96 I/O 07/15/16 07/15/16 07/15/16 07/16/16 07/16/16 07/16/16 07:00 15:00 23:00 07:00 15:00 23:00 Intake Total 320 ml 480 ml 480 ml Output Total 1500 ml 500 ml 800 ml 600 ml Balance -1180 ml -20 ml -320 ml -600 ml Intake Oral 320 ml 480 ml 480 ml Output Urine Total 1500 ml 500 ml 800 ml 600 ml # Bowel Movements 0 1 Physical Exam GENERAL: In NAD SKIN: Warm and dry. HEAD: Normocephalic. EYES: No scleral icterus. No injection or drainage. NECK: Supple, trachea midline. No JVD or lymphadenopathy. CARDIOVASCULAR: Regular rate 1/6 syst murmur, no gallops, or rubs. RESPIRATORY: Breath sounds equal bilaterally. No accessory muscle use. GASTROINTESTINAL: Abdomen soft, non-tender, nondistended. MUSCULOSKELETAL: No cyanosis, 1+ pretib edema. Laboratory Laboratory Tests Test 07/12/16 07/12/16 07/13/16 07/15/16 14:30 20:30 03:17 07:08 Prothrombin Time 16.4 SEC Prothromb Time International 1.5 RATIO Ratio Activated Partial 32.7 SEC Thromboplast Time Magnesium Level 2.3 MG/DL B-Type Natriuretic Peptide 501 PG/ML Hemoglobin A1c 7.9 % White Blood Count 7.9 TH/MM3 Red Blood Count 4.79 MIL/MM3 Hemoglobin 11.3 GM/DL Hematocrit 36.4 % Mean Corpuscular Volume 76.1 FL Mean Corpuscular Hemoglobin 23.7 PG Mean Corpuscular Hemoglobin 31.1 % Concent Red Cell Distribution Width 18.2 % Platelet Count 277 TH/MM3 Mean Platelet Volume 8.1 FL Neutrophils (%) (Auto) 68.0 % Lymphocytes (%) (Auto) 17.3 % Monocytes (%) (Auto) 9.9 % Eosinophils (%) (Auto) 3.8 % Basophils (%) (Auto) 1.0 % Neutrophils # (Auto) 5.4 TH/MM3 Lymphocytes # (Auto) 1.4 TH/MM3 Monocytes # (Auto) 0.8 TH/MM3 Eosinophils # (Auto) 0.3 TH/MM3 Basophils # (Auto) 0.1 TH/MM3 CBC Comment DIFF FINAL Differential Comment Total Bilirubin 0.5 MG/DL Aspartate Amino Transf 33 U/L (AST/SGOT) Alanine Aminotransferase 27 U/L (ALT/SGPT) Alkaline Phosphatase 90 U/L Total Creatine Kinase 95 U/L Troponin I 0.07 NG/ML Total Protein 6.8 GM/DL Albumin 3.2 GM/DL Sodium Level 139 MEQ/L Potassium Level 4.0 MEQ/L Chloride Level 101 MEQ/L Carbon Dioxide Level 29.4 MEQ/L Anion Gap 9 MEQ/L Blood Urea Nitrogen 28 MG/DL Creatinine 1.01 MG/DL Estimat Glomerular Filtration 73 ML/MIN Rate Random Glucose 85 MG/DL Calcium Level 8.8 MG/DL Test 07/15/16 07/15/16 13:01 14:40 D-Dimer Quantitative (PE/DVT) 0.46 MG/L FEU Blood Gas Puncture Site RT RADIAL Blood Gas Patient Temperature 98.6 Blood Gas HCO3 26 mmol/L Blood Gas Base Excess 1.5 mmol/L Blood Gas Oxygen Saturation 78 % Arterial Blood pH 7.40 Arterial Blood Partial 43 mmHg Pressure CO2 Arterial Blood Partial 48 mmHg Pressure O2 Arterial Blood Oxygen Content 12.1 Vol % Arterial Blood 1.5 % Carboxyhemoglobin Arterial Blood Methemoglobin 1.3 % Blood Gas Hemoglobin 11.0 G/DL Oxygen Delivery Device ROOM AIR Blood Gas Inspired Oxygen 21 % Imaging Last Impressions Myocardial Perfusion Scan Nuc Med 07/15/16 0000 Signed Impressions: Service Date/Time: Friday, July 15, 2016 09:07 - CONCLUSION: Stress- induced redistribution consistent with ischemia with significant wall motion abnormality basal inferior wall RISK CATEGORY: High (>3%% Annual Mortality Rate) Markie Noonan MD FACR Chest X-Ray 07/12/161422 Signed Impressions: Service Date/Time: Tuesday, July 12, 2016 14:52 - CONCLUSION: 1. Cardiomegaly with mild positive fluid balance. Loy Arshad MD CT Angiography [id number]/12/161422 Signed Impressions: Service Date/Time: Tuesday, July 12, 2016 15:48 - CONCLUSION: 1. Advanced pulmonary fibrosis. 2. No pulmonary embolus Francisco Javier Noonan MD Assessment and Plan Problem List: (1) New onset of congestive heart failure (2) Cardiomyopathy (3) Syncope (4) Atrial fibrillation (5) Pulmonary fibrosis (6) DM (diabetes mellitus) (7) CAD (coronary artery disease) Assessment and Plan CHF stabilized. Echo w severe LV systolic dysfunction. Nuc ST shows inferobasal ischemia. Continue and titrate tx for CHF, monitor renal fx. Pulmonary eval in progress, seen by Dr. Hammer. Continue monitoring. Increase activity. L and R heart cath/poss PCI tomorrow. D/w pt and . Problem Qualifiers (1) Syncope: Qualified Code: R55 - Syncope, unspecified syncope type Blaine Carcamo MD Jul 16, 2016 15:46
[2016-07-16] MEDS: ATORVASTATIN 40 MG TAB PO SCH (21:01)
[2016-07-16] MEDS: GABAPENTIN 300 MG CAP PO SCH (21:01)
[2016-07-16] MEDS: INSULIN DETEMIR 100 UNITS/ML VIAL SQ SCH (21:04)
[2016-07-17] VITALS (12 sets, daily range): BP systolic 92–113; BP diastolic 56–65; PULSE 71–90; RESP 18–20; TEMP 97.4–98.4; O2SAT 92–97
[2016-07-17] MEDS: INSULIN ASPART SUPPLEMENTAL SCALE SQ SCH ×3 (06:09→21:25)
--- NOTE | 2016-07-17 08:56 | HHI.PR ---
Subjective Remarks 70-year-old male with past medical history of HTN, A. fib, CVA, DM, HLD, GERD who presented after a syncopal episode. The patient states that last night he had a syncopal episode. He states that he stood up to a few steps and then felt lightheaded and dizzy like he was going to pass out. He subsequently lost consciousness for about 5 minutes. He states that he's been having problems breathing for the past month. He states that he's been on 3 courses of antibiotics which really haven't improved his breathing. He states that his shortness breath is worse whenever he exerts himself or whenever he bends over. He normally follows with physicians, including cardiology in [place] and plans to return there after discharge. He denies ever being diagnosed with congestive heart failure or COPD. He does state that his diabetes medicine specialist recently decreased his Lasix dose. He states that he takes Lasix for lower extremity swelling. He quit smoking in 1980. 07/15: Status post Stress test abnormal, Echocardiogram with EF 20 to 25%, Severe Left Ventricular dysfunction, to continue to titrate CHF medicines, follow Pulmonary evaluation and Schedule Cath possible PCI for Sunday07/17/16. 07/16: Cardiac Cath for tomorrow. 07/17: Patient stable seen in his bedroom, no complaint, no nausea, vomit or diarrhea awaiting for Cardiac cath later today Objective Vital Signs Date Time Temp Pulse Resp B/P Pulse Ox O2 Delivery O2 Flow Rate FiO2 07/17/16 04:00 97.4 79 18 98/59 94 07/17/16 04:00 Nasal Cannula 3.00 07/17/16 00:54 108/58 07/17/16 00:00 Nasal Cannula 3.00 07/17/16 00:00 97.8 90 20 96 07/16/16 20:15 67 07/16/16 20:00 89/55 07/16/16 20:00 98.2 66 18 85/50 95 07/16/16 20:00 92/53 07/16/16 20:00 Nasal Cannula 3.00 07/16/16 17:45 98 Nasal Cannula 3.00 07/16/16 16:00 97.4 76 18 105/57 98 07/16/16 12:00 97.3 74 18 99/56 98 I/O 07/16/16 07/16/16 07/16/16 07/17/16 07/17/16 07/17/16 07:00 15:00 23:00 07:00 15:00 23:00 Intake Total 480 ml 360 ml 240 ml Output Total 600 ml 1100 ml Balance -600 ml -620 ml 360 ml 240 ml Intake Oral 480 ml 360 ml 240 ml Output Urine Total 600 ml 1100 ml # Voids 3 1 # Bowel Movements 0 0 Result Diagram: 07/13/16 0317 07/15/16 0708 Imaging Last Impressions Myocardial Perfusion Scan Nuc Med 07/15/16 0000 Signed Impressions: Service Date/Time: Friday, July 15, 2016 09:07 - CONCLUSION: Stress- induced redistribution consistent with ischemia with significant wall motion abnormality basal inferior wall RISK CATEGORY: High (>3%% Annual Mortality Rate) Markie Noonan MD FACR Chest X-Ray 07/12/161422 Signed Impressions: Service Date/Time: Tuesday, July 12, 2016 14:52 - CONCLUSION: 1. Cardiomegaly with mild positive fluid balance. Loy Arshad MD CT Angiography 07/12/161422 Signed Impressions: Service Date/Time: Tuesday, July 12, 2016 15:48 - CONCLUSION: 1. Advanced pulmonary fibrosis. 2. No pulmonary embolus Francisco Javier Noonan MD Procedures Stress test Other Results Laboratory Tests Test 07/12/16 07/13/16 07/15/16 07/15/16 20:30 03:17 07:08 13:01 Hemoglobin A1c 7.9 % White Blood Count 7.9 TH/MM3 Red Blood Count 4.79 MIL/MM3 Hemoglobin 11.3 GM/DL Hematocrit 36.4 % Mean Corpuscular Volume 76.1 FL Mean Corpuscular Hemoglobin 23.7 PG Mean Corpuscular Hemoglobin 31.1 % Concent Red Cell Distribution Width 18.2 % Platelet Count 277 TH/MM3 Mean Platelet Volume 8.1 FL Neutrophils (%) (Auto) 68.0 % Lymphocytes (%) (Auto) 17.3 % Monocytes (%) (Auto) 9.9 % Eosinophils (%) (Auto) 3.8 % Basophils (%) (Auto) 1.0 % Neutrophils # (Auto) 5.4 TH/MM3 Lymphocytes # (Auto) 1.4 TH/MM3 Monocytes # (Auto) 0.8 TH/MM3 Eosinophils # (Auto) 0.3 TH/MM3 Basophils # (Auto) 0.1 TH/MM3 CBC Comment DIFF FINAL Differential Comment Total Bilirubin 0.5 MG/DL Aspartate Amino Transf 33 U/L (AST/SGOT) Alanine Aminotransferase 27 U/L (ALT/SGPT) Alkaline Phosphatase 90 U/L Total Creatine Kinase 95 U/L Troponin I 0.07 NG/ML Total Protein 6.8 GM/DL Albumin 3.2 GM/DL Sodium Level 139 MEQ/L Potassium Level 4.0 MEQ/L Chloride Level 101 MEQ/L Carbon Dioxide Level 29.4 MEQ/L Anion Gap 9 MEQ/L Blood Urea Nitrogen 28 MG/DL Creatinine 1.01 MG/DL Estimat Glomerular Filtration 73 ML/MIN Rate Random Glucose 85 MG/DL Calcium Level 8.8 MG/DL D-Dimer Quantitative (PE/DVT) 0.46 MG/L FEU Test 07/15/16 14:40 Blood Gas Puncture Site RT RADIAL Blood Gas Patient Temperature 98.6 Blood Gas HCO3 26 mmol/L Blood Gas Base Excess 1.5 mmol/L Blood Gas Oxygen Saturation 78 % Arterial Blood pH 7.40 Arterial Blood Partial 43 mmHg Pressure CO2 Arterial Blood Partial 48 mmHg Pressure O2 Arterial Blood Oxygen Content 12.1 Vol % Arterial Blood 1.5 % Carboxyhemoglobin Arterial Blood Methemoglobin 1.3 % Blood Gas Hemoglobin 11.0 G/DL Oxygen Delivery Device ROOM AIR Blood Gas Inspired Oxygen 21 % Objective Remarks GENERAL: Well-developed well-nourished. In no acute distress. SKIN: Warm and dry. No lesions noted. HEENT: Normocephalic. Pupils equal and round. Mucous membranes pink and moist. CARDIOVASCULAR: Regular rate and rhythm. 2/6 systolic murmur appreciated. RESPIRATORY: No accessory muscle use. Decreased breath sounds in the bilateral lung bases. No wheezing. GASTROINTESTINAL: Abdomen soft, non-tender, nondistended. Bowel sounds x4. MUSCULOSKELETAL: No obvious deformities. No clubbing or cyanosis. 1+ edema. NEUROLOGICAL: Awake and alert. No focal neurological deficits. Moves upper and lower extremities spontaneously. Normal speech. PSYCHIATRIC: Appropriate mood and affect; insight and judgment normal. Medications and IVs Current Medications Medications (Trade) Dose Ordered Sig/Gian Route Start Time Stop Time Status Last Admin (NS Flush) 2 ml UNSCH PRN IV FLUSH 07/12/16 17:30 (NS Flush) 2 ml BID IV FLUSH 07/12/16 21:00 07/16/16 21:00 (Tylenol) 650 mg Q4H PRN PO 07/12/16 17:30 (Zofran Inj) 4 mg Q6H PRN IVP 07/12/16 17:30 (Restoril) 15 mg HS PRN PO 07/12/16 17:30 (Narcan Inj) 0.4 mg UNSCH PRN IV 07/12/16 17:30 (Lasix Inj) 20 mg BID@09,18 IV PUSH 07/12/16 18:00 07/16/16 17:24 (D50w (Vial) Inj) 50 ml UNSCH PRN IV 07/12/16 17:30 (Glucagon Inj) 1 mg UNSCH PRN OTHER 07/12/16 17:30 (Tylenol-Codeine #3) 1 tab Q6HR PRN PO 07/12/16 18:30 07/16/16 17:25 (Lipitor) 40 mg HS PO 07/12/16 21:00 07/16/16 21:01 (Neurontin) 300 mg HS PO 07/12/16 21:00 07/16/16 21:01 (Levemir Inj) 25 units HS SQ 07/12/16 21:00 07/16/16 21:04 (Xarelto) 20 mg DAILY PO 07/13/16 09:00 Hold 07/15/16 13:09 (Protonix) 20 mg DAILY PO 07/13/16 09:00 07/16/16 09:31 Patient Own Medication PT OWN MED: Polyethylene Glycol-Propyl... BID PRN EACH EYE 07/12/16 18:30 Hold Patient Own Medication PT OWN MED: Lipo... BID PRN EACH EYE 07/12/16 18:30 Hold (Coreg) 3.125 mg Q12HR PO 07/13/16 21:00 07/16/16 09:30 (Prinivil) 2.5 mg DAILY PO 07/14/16 17:15 07/16/16 09:30 (Pill Splitter) 1 ea UNSCH PRN OTHER 07/14/16 17:15 A/P Assessment and Plan 70-year-old male with past medical history of HTN, A. fib, CVA, DM, HLD, GERD who presented after a syncopal episode Syncope: Unclear etiology, probably multifactorial. Orthostatic positive in the ED. Also probably a component of hypoxia from underlying CHF and COPD. Troponin 0.07, likely due to renal dysfunction CHF, wEKG with A. fib and PVCs. Echocardiogram with Severe Left Ventricular Dysfunction EF 20-25% abnormal Stress test for Cardiac Cath for today. New Onset of CHF with Severe LV Dysfunction EF 20-25 % for Cardiac Cath today. Pulmonary fibrosis with possible underlying COPD: Pulmonary angiogram with no PE , however shows advanced pulmonary fibrosis. seen by insurance verification specialist Doctor Markie Hammer, recommended Oxygen therapy, will need to follow with insurance verification specialist at [place]. Diabetes mellitus: Hold home oral hypoglycemics for now. Continue home basal insulin. Monitor Accu-Cheks. SSI coverage as needed. hemoglobin A1C 7.9. Continue gabapentin for neuropathy. Atrial fibrillation: Continue anticoagulations with Xarelto. Code Status Full code Discussed Condition With Patient and nurse Miss Medellin, all questions answered to the best of my abilities. Discharge Planning Expected once cleared by orthopedic cast specialist. Kelvin Potts MD Jul 17, 2016 08:56 Kelvin Potts MD Jul 17, 2016 08:56
[2016-07-17] MEDS: SODIUM CHLORIDE 0.9% FLUSH 10 ML FLUSH IV FLUSH SCH ×2 (09:00→21:00)
[2016-07-17] MEDS: CARVEDILOL 3.125 MG TAB PO SCH ×2 (09:00→21:17)
[2016-07-17] MEDS: LISINOPRIL 5 MG TAB PO SCH (09:26)
[2016-07-17] MEDS: PANTOPRAZOLE SOD 20 MG DELAYED RELEASE TAB PO SCH (09:26)
[2016-07-17] MEDS: FUROSEMIDE 20 MG/2 ML VIAL IV PUSH SCH ×2 (09:27→21:27)
--- NOTE | 2016-07-17 12:50 | MB ---
cc: Jessica TURNER DATE OF CONSULTATION: 07/17/2016 PULMONARY NOTE Mr. Harper is a 70-year-old white male whom I saw two days ago for dyspnea and an abnormal scan. Subsequently he has been seen by cardiology, had a nuclear stress test which was found to be abnormal and is going for catheterization today. The patient had a syncopal episode prior to admission. He is a former smoker but quit smoking many years ago. He has had dyspnea for several weeks and because of that and the recent syncopal episode he was referred to the ER. Since admission he has been diuresed and does feel better. CT angiogram revealed pulmonary fibrosis, probably with some degree of superimposed heart failure/pulmonary edema and no evidence of thromboembolic disease. The patient is stable at the present time on 2-3 liters of nasal oxygen. Dr. Carcamo is scheduling him for catheterization later today. Depending on those results discharge planning will be made. I have explained to Mr. Harper and his today that in light of the fact they have an outpatient pulmonary visit already scheduled July 27 with the [place], we will not pursue any further diagnostic studies here in the hospital. He will need pulmonary functions. He will probably need a follow-up CT scan as well and then further investigations based on those results. Since I will be away the remainder of this week and his pulmonary status is stable, I am going to defer further evaluation to the [place] pulmonary eap consultant that he is scheduled to see. He may, however, need oxygen in the interim and that can be arranged at discharge if O2 sats are still low on room air. While I am away if pulmonary follow-up is necessary, one of my cross-covering associates will be available to see him. Both Mr. Harper and his expressed understanding of this recommendation and anticipate seeing the pulmonary eap consultant from the [place] as an outpatient at the end of July. MD OZE Arriaga/SELENA /12:31 PM /12:47 PM
[2016-07-17] MEDS ORDERED: IOHEXOL 350 MG/ML 50 ML BTL (for Cath Lab) OTHER ONE (13:53)
[2016-07-17] MEDS ORDERED: IOHEXOL 350 MG/ML 100 ML BTL (for Cath Lab) OTHER ONE (13:53)
[2016-07-17] MEDS ORDERED: MIDAZOLAM HCL 2 MG/2 ML VIAL ONE (14:06)
[2016-07-17] MEDS ORDERED: HEPARIN-NS/PF INJ 500 ML ONE ×2 (14:06→15:22)
[2016-07-17] MEDS ORDERED: HEPARIN SODIUM - IV 10,000 UNITS/10 ML VIAL ONE (14:42)
--- NOTE | 2016-07-17 16:08 | CATHPROC ---
[employer] HIS Report Study Information Study Number Scheduled Start Study Start [id number] 07/17/2016 Jul 17 2016 1:48PM Referring Institution Admit Source Facility Department 1 Emergency department [facility] - Manager Emergency Physician and Clinical Staff Initial Blaine Louie Fire Sprinkler Service Technician Gumaro RN, Dereje Recorder Rodrigo Redd,RT(R) Laila Crowe,RT(R) (BS) Procedures Performed Procedure Location (Site) Vessel Name Angiogram LV LV Ventricle Coronary Angiograms LCA Left Coronary Coronary Angiograms RCA Right Coronary Coronary Angiograms VIEYRA-LAD Left Coronary Coronary Angiograms SVG-OM CIRC Coronary Angiograms VIEYRA VIEYRA Wire insertion Fem Art (right) Femoral Art Equipment Time Dried Yeast Supervisor Description Size Mfg Part Number Used/Scraped [id number] 14:37 MARCELO MAGAÑA SWAN ABIODUN CATHETER FR 7 Used *[id number] TRANSDUCER, TRUWAVE [id number] 14:37 MARCELO MAGAÑA * Used W/STOCKCOCK *[id number] TRANSDUCER, TRUWAVE [id number] 14:37 MARCELO MAGAÑA * Used W/STOCKCOCK *[id number] 534-545T *[id number] 534-548T *[id number] 534-560T *[id number] 534-520T *[id number] [id number] *[id number] WIRE, HYDROSTEER 150CM [id number] 14:47 [employer]IG[employer] 150CM Used ANGLED GLIDE *[id number] 14:37 [employer] INDUSTRIES PACK, CCL CUSTOM * Used *[id number] 14:37 [employer] PACER PEN, SKIN DUAL W/ RULER * Used *[id number] 14:37 [employer] MEDICAL WIRE, 3MMJ .035 180CM 180CM Used *[id number] 14:52 [employer] MEDICAL WIRE, 3MMJ .035 180CM 180CM Used *[id number] 15:12 [employer] WIRE, EXCHANGE 260CM 3MMJ 260CM Used *[id number] PROBE COVER, STERILE [id number] 14:37 [employer] * Used ULTRASOUND W/ GEL *[id number] 14:37 NAMIC MANIFOLD, 2 PORT * Used *[id number] 14:37 NAMIC MANIFOLD, 4 PORT * Used *[id number] [id number] 14:37 NAMIC TUBING, HIGH PRESSURE 48" 48" Used *[id number] 14:37 [employer] OMNIPAQUE, 350 MG, 150ML 150ML [id number] Used [id number] 14:37 [employer],WARM AIR CCL * Used *[id number] 14:37 [employer] MED[employer] SHEATH, FR5 TERUMO (10CM) FR 5 [id number] Used 14:37 [employer] MED[employer] SHEATH, FR7 TERUMO (10CM) FR 7 [id number] Used Equipment Model, Serial, Lot Number and Expiration Data Description Model Number Serial Number Lot Number Expiration Date WIRE, 3MMJ .035 180CM [id number] 05-06-2019 WIRE, EXCHANGE 260CM 3MMJ [id number] 05-06-2019 WIRE, HYDROSTEER 150CM [id number] 03-07-2019 ANGLED GLIDE History: Allergies Allergy Reaction No Known Allergies History: Risk Factors Family History of Hypertension Dyslipidemia Previous OK Previous Heart Failure Premature CAD No No Yes No No Prior Valve Prior PCI Prior CABG Prior CABGDate Surgery Yes No Yes 02/05/2001 Cerebrovascular Peripheral Artery Chronic Lung On Dialysis Diabetes Diabetes Therapy Disease Disease Disease No Yes No No Yes Oral History: Stress Tests Stress or Imaging Studies Performed Yes Standard Exercise Stress Test No Stress Echo No Stress Test SPECT Stress Test SPECT Result Stress Test SPECT Ischemia Risk/Extent Yes Positive High Stress Test CMR No Cardiac CTA Coronary Calcium Score No No History: Other Current Smoker Method Quit Packs a Day Years Used Pack Years No Cigarettes 35 Years Ago 2 30 60 Labs Hgb (g/dl) Hct (%) WBC (l/cumm) Platelets (thousands) 12.00-18.00 37.00-55.00 4.80-10.80 140.00-450.00 11.3 36.4 7.9 277 Glucose (mg/dl) BUN (mg/dl) Creatinine (mg/dl) BUN:Creatinine (1:x) 60.00-110.00 8.00-20.00 0.10-9.00 10.00-20.00 85 28 1.0 28 Na (meq/l) K (meq/l) Cl (meq/l) 138.00-146.00 3.80-5.10 101.00-111.00 139 4 101 INR (PTT:PT) 0.50-2.00 1.5 Troponin I (ng/ml) CPK (u/l) CPK-MB (ng/ML) 0.40-2.30 37.00-289.00 0.00-7.00 0.09 95 Not Drawn Medication Medication Total Dose (Bolus/Oral) Medication Total Dosage/Unit 1% XYLOCAINE 20 mL HEPARIN 5000 units VERSED 0.5 mg Medications (Bolus/Oral) Medication Time Given Dosage/Unit Administered By Reason VERSED 07/17/2016 2:31:48 PM 0.5 mg Dereje Naik RN 0.5 mg VERSED given in lab by Dereje Naik RN via Peripheral IV. 1% XYLOCAINE 07/17/2016 2:35:42 PM 20 mL Blaine Carcamo 20 mL 1% XYLOCAINE given in lab by Blaine Carcamo in Right Groin via Subcutaneous. HEPARIN 07/17/2016 2:44:49 PM 3000 units Dereje Naik RN 3000 units HEPARIN given in lab by Dereje Naik RN via Peripheral IV. HEPARIN 07/17/2016 3:12:34 PM 2000 units Dereje Naik RN 2000 units HEPARIN given in lab by Dereje Naik RN via Peripheral IV. Medication (Drip) Medication Time Given Dosage/Unit Concentration/Unit Diluent (ml) Solution IV Solutions 07/17/2016 2:04:29 PM 0 mL (IV) 500 NaCl .9 IV Solutions given in lab by Dereje Naik RN in Left Forearm via Peripheral IV. Pump/Drip Flow = 20 m l/hr using NaCl .9. Initial Case Assessment Cardiovascular HR Rhythm NIBP 55 afib 102/65 Edema Present Skin color Skin None Normal Warm Dry Circulatory - Right Pulses Posterior Tibial Femoral 1 1 Scale (0,1,2,3,4,d) Circulatory - Left Pulses Posterior Tibial Femoral d 1 Scale (0,1,2,3,4,d) Neurological State Oriented to time-place- Alert Moves all extremities person Respiration - General Respiration Rate SpO2 (%) O2 (lpm) (B/min) 18 92 2 Final Case Assessment Cardiovascular HR Rhythm NIBP Chest Pain 45 afib 105/73 0 Edema Present Skin color Skin None Normal Warm Dry Circulatory - Right Pulses Posterior Tibial Femoral 1 1 Scale (0,1,2,3,4,d) Circulatory - Left Pulses Posterior Tibial Femoral d 1 Scale (0,1,2,3,4,d) Neurological State Oriented to time-place- Alert Moves all extremities person Respiration - General Respiration Rate SpO2 (%) O2 (lpm) (B/min) 18 92 2 Chronological Log Time Study Chronological Log 13:53:24 Patient arrived via Bed. 13:53:25 Patient Name, D.O.B, / Armband Verified By R.N. 13:53:26 Consent signed by the physician and the patient and verified by the Manager Emergency staff. 13:53:27 Pre-op and post- op instructions given; patient acknowledges understanding of instructions . 13:54:00 Verbal Stimulation=2 Physical Stimulation=2 Airway=2 Respiration=2 TOTAL=8. (0=absent, 1=l imited, 2=present) 13:54:33 Patient has been NPO for More than 6Hrs. 14:01:59 Reference ECG taken 14:02:34 Skin Breakdown-none present per patient. 14:02:57 Patient Warmer Placed on the Table. 14:03:00 A # 20 IV was noted in the Forearm (left). Grade = 0 14:04:22 A # 20 IV was noted in the Forearm (right). Grade = 0 14:04:29 IV Solutions given in lab by Dereje Naik RN in Left Forearm via Peripheral IV. Pump/Drip Flow = 20 ml/hr using NaCl .9. 14:04:52 History and physical on the chart or being dictated. Assessment: Initial Case, HR=55 BPM, Rhythm=afib, FVNJ=587/65 mmhg, Edema=None, Color=Normal, Skin = Warm, Dry Right Pulses: Post Tib=1, Femoral=1 14:04:54 Left Pulses: Post Tib=d, Femoral=1 Neurological: State=Alert, Ox3, GUTIERREZ Respiration: Resp=18 B/min, SpO2=92 %, O2=2 lpm Vitals capture started with the following parameters, Patient=Adult, Interval=5 min, Initial Pr mbydlf=127 mmHg, 14:04:56 Deflation Rate=5 mmHg 14:05:24 HR=57 bpm, XNXL=400/65 mmhg, SpO2=93.0 %, Resp=14 B/min, Fran=9, Bajwa=2 14:09:36 Right groin prepped with 2% chlorhexidine, and with a 3 min. waiting time. 14:10:25 HR=70 bpm, XQNE=205/62 mmhg, SpO2=92.0 %, Resp=12 B/min, Fran=9 14:15:29 HR=53 bpm, YUNF=792/65 mmhg, SpO2=90.0 %, Resp=12 B/min, Fran=9 14:16:05 Pressure channel 1 zeroed. 14:17:21 Pressure channel 2 zeroed. 14:20:28 HR=53 bpm, RPTD=470/68 mmhg, SpO2=92.0 %, Resp=16 B/min, Fran=9 14:22:09 paged 14:25:31 HR=74 bpm, BQKT=401/61 mmhg, SpO2=87.0 %, Resp=13 B/min, Fran=9 14:30:32 HR=76 bpm, QUDX=510/59 mmhg, SpO2=90.0 %, Resp=15 B/min, Fran=9 14:31:48 0.5 mg VERSED given in lab by Dereje Naik RN via Peripheral IV. Time Out. Correct patient, correct procedure,correct physician, ,power injector loaded with con trast with surgical team 14:34:09 present. Time Out Concurred by MD, individual staff and C WPF DEVELOPER in procedure. Loaded by Dereje Naik Rn., verified by Laila Vidal. 14:34:41 Presedation re-assessment performed by Manager Emergency RN. 14:34:43 Case Start 14:34:45 Verbal Stimulation=2 Physical Stimulation=2 Airway=2 Respiration=2 TOTAL=8. (0=absent, 1=li mited, 2=present) 14:35:29 HR=69 bpm, ENBE=691/66 mmhg, SpO2=86.0 %, Resp=12 B/min, Fran=9 14:35:42 20 mL 1% XYLOCAINE given in lab by Blaine Carcamo in Right Groin via Subcutaneous. 14:37:08 Access site was Right Femoral Vein. 14:37:14 A SHEATH, FR7 TERUMO (10CM) FR 7 was advanced into the Fem Vein (right) using the Percutane ous technique. 14:38:04 Access site was Right Femoral Artery. 14:38:09 A SHEATH, FR5 TERUMO (10CM) FR 5 was advanced into the Fem Art (right) using the Percutaneo us technique. 14:38:30 A SWAN ABIODNU CATHETER FR 7 was inserted via Fem Vein (right) 14:40:28 HR=80 bpm, YRQZ=044/67 mmhg, SpO2=93.0 %, Resp=15 B/min, Fran=9 Recorded Pressure: MPA, HR=74, Condition=Condition 1 14:42:00 (Main Pulmonary Artery) MPA 73/29/47 A PIGTAIL ANG. INFINITI CATHETER FR 5 was advanced over a wire. OMNIPAQUE, 350 MG, 150ML 150ML was used 14:42:21 for injections. 14:44:49 3000 units HEPARIN given in lab by Dereje Naik RN via Peripheral IV. 14:45:29 HR=69 bpm, MOEJ=759/63 mmhg, SpO2=97.0 %, Resp=15 B/min, Fran=9 14:45:35 Wire removed 14:45:38 A WIRE, 3MMJ .035 180CM 180CM was inserted via Fem Art (right). 14:47:48 Wire removed 14:47:56 A WIRE, HYDROSTEER 150CM ANGLED GLIDE 150CM was inserted via Fem Art (right). 14:48:58 Wire removed 14:49:48 Catheter was removed A AR MOD INFINITI CATHETER FR 5 was advanced over a wire. OMNIPAQUE, 350 MG, 150ML 150ML was us ed for 14:49:52 injections. 14:50:32 HR=68 bpm, PCEG=842/64 mmhg, SpO2=94.0 %, Resp=32 B/min, Fran=9 14:53:35 Wire removed 14:53:44 A WIRE, HYDROSTEER 150CM ANGLED GLIDE 150CM was inserted via Fem Art (right). 14:55:31 HR=76 bpm, JVGX=661/60 mmhg, SpO2=93.0 %, Resp=16 B/min, Fran=9 14:56:54 Wire removed 14:57:09 A WIRE, HYDROSTEER 150CM ANGLED GLIDE 150CM was inserted via Fem Art (right). 15:00:06 Wire removed 15:00:10 A WIRE, HYDROSTEER 150CM ANGLED GLIDE 150CM was inserted via Fem Art (right). 15:00:30 HR=75 bpm, WOOO=632/66 mmhg, SpO2=92.0 %, Resp=23 B/min, Fran=9 15:01:56 Wire removed 15:02:01 A WIRE, HYDROSTEER 150CM ANGLED GLIDE 150CM was inserted via Fem Art (right). 15:04:12 Wire removed 15:04:17 A WIRE, HYDROSTEER 150CM ANGLED GLIDE 150CM was inserted via Fem Art (right). 15:05:33 HR=78 bpm, UMAM=839/64 mmhg, SpO2=91.0 %, Resp=16 B/min, Bajwa=2 15:07:40 Wire removed 15:07:53 Catheter was removed A AL 1 INFINITI CATHETER FR 5 was advanced over a wire. OMNIPAQUE, 350 MG, 150ML 150ML was used for 15:08:01 injections. 15:08:54 A WIRE, HYDROSTEER 150CM ANGLED GLIDE 150CM was inserted via Fem Art (right). 15:10:32 HR=43 bpm, NRGZ=790/63 mmhg, SpO2=92.0 %, Resp=16 B/min, Fran=9 15:11:25 Wire removed 15:11:39 A WIRE, EXCHANGE 260CM 3MMJ 260CM was inserted via Fem Art (right). After removing the current catheter a PIGTAIL ANG. INFINITI CATHETER FR 5 was advanced over a W AMINAH, EXCHANGE 15:11:51 260CM 3MMJ 260CM. 15:12:34 2000 units HEPARIN given in lab by Dereje Naik RN via Peripheral IV. Recorded Pressure: LV, HR=85, Condition=Condition 1 15:14:59 (Left Ventricle) LV 111/10/16 Recorded Pressure: LV, MPA, YP=011, Condition=Condition 1 15:15:26 (Left Ventricle) LV 123/13/20, (Main Pulmonary Artery) MPA 74/42/57 15:15:35 HR=56 bpm, LIPE=695/55 mmhg, SpO2=92.0 %, Resp=15 B/min Thermo CO: CO=4.8 l/m, HR=75 bpm, Condition=Condition 1. Used in calculation. 15:16:21 Equipment: Description and Size=SWAN ABIODUN CATHETER FR 7, Type=Bath Probe, CC=0.579 Injectant: Temp=19.0 - 22.0 Celsius, Volume=10.0 ml Thermo CO: CO=4.6 l/m, HR=14 bpm, Condition=Condition 1. Used in calculation. 15:17:18 Equipment: Description and Size=SWAN ABIODUN CATHETER FR 7, Type=Bath Probe, CC=0.579 Injectant: Temp=19.0 - 22.0 Celsius, Volume=10.0 ml Thermo CO: CO=4.5 l/m, HR=21 bpm, Condition=Condition 1. Used in calculation. 15:17:54 Equipment: Description and Size=SWAN ABIODUN CATHETER FR 7, Type=Bath Probe, CC=0.579 Injectant: Temp=19.0 - 22.0 Celsius, Volume=10.0 ml 15:20:34 HR=29 bpm, MBES=388/62 mmhg, SpO2=91.0 %, Resp=30 B/min, Bajwa=2 15:20:58 The LV was injected at 12 cc/sec for a total of 36. OMNIPAQUE, 350 MG, 150ML 150ML used. 15:23:25 Pressure channel 1 zeroed. 15:23:36 Pressure channel 2 zeroed. Recorded Pressure: LV, PCW, HR=73, Condition=Condition 1 15:24:23 (Left Ventricle) LV 118/11/21, (Pulmonary Capillary Wedge) PCW 27//24 Recorded Pressure: PCW, HR=70, Condition=Condition 1 15:24:32 (Pulmonary Capillary Wedge) PCW 28//23 Recorded Pressure: LV, MPA, HR=83, Condition=Condition 1 15:24:45 (Left Ventricle) LV 114/13/20, (Main Pulmonary Artery) MPA 76/33/52 Recorded Pressure: MPA, HR=68, Condition=Condition 1 15:24:56 (Main Pulmonary Artery) MPA 79/29/48 Recorded Pressure: RV, HR=80, Condition=Condition 1 15:25:24 (Right Ventricle) RV 75/26/26 15:25:35 HR=35 bpm, TWRH=550/66 mmhg, SpO2=92.0 %, Resp=27 B/min Recorded Pressure: LV, RA, HR=73, Condition=Condition 1 15:25:38 (Left Ventricle) LV 117/13/21, (Right Atrium) RA Recorded Pressure: RA, HR=89, Condition=Condition 1 15:25:43 (Right Atrium) RA Recorded Pressure: LV, RA, HR=96, Condition=Condition 1 15:26:02 (Left Ventricle) LV 114/12/20, (Right Atrium) RA Recorded Pressure: LV, Ao, HR=87, Condition=Condition 1 15:26:28 (Left Ventricle) LV 120/17/22, (Aorta) Ao 114/41/74 15:27:08 Catheter was removed A JL 4.0 INFINITI CATHETER FR 5 was advanced over a wire. OMNIPAQUE, 350 MG, 150ML 150ML was us ed for 15:27:10 injections. Recorded Pressure: Ao, HR=66, Condition=Condition 1 15:28:09 (Aorta) Ao 101/52/72 15:28:27 The LCA was injected and visualized at various angles. OMNIPAQUE, 350 MG, 150ML 150ML used . 15:30:09 Catheter was removed 15:30:34 HR=30 bpm, URAJ=189/60 mmhg, SpO2=87.0 %, Resp=28 B/min, Bajwa=2 A AR MOD INFINITI CATHETER FR 5 was advanced over a wire. OMNIPAQUE, 350 MG, 150ML 150ML was us ed for 15:30:55 injections. 15:31:54 The VIEYRA was injected and visualized at various angles. OMNIPAQUE, 350 MG, 150ML 150ML used . 15:33:29 The SVG-OM was injected and visualized at various angles. OMNIPAQUE, 350 MG, 150ML 150ML us ed. 15:34:40 The RCA was injected and visualized at various angles. OMNIPAQUE, 350 MG, 150ML 150ML used . 15:35:38 HR=64 bpm, XYII=521/55 mmhg, SpO2=88.0 %, Resp=20 B/min, Bajwa=2 15:38:12 Catheter was removed A AL 1 INFINITI CATHETER FR 5 was advanced over a wire. OMNIPAQUE, 350 MG, 150ML 150ML was used for 15:38:47 injections. 15:39:56 The RCA was injected and visualized at various angles. OMNIPAQUE, 350 MG, 150ML 150ML used . 15:40:37 HR=43 bpm, PQBO=904/71 mmhg, SpO2=88.0 %, Resp=36 B/min, Bajwa=2 15:43:28 Catheter was removed A MARCELINO INFINITI CATHETER FR 5 was advanced over a wire. OMNIPAQUE, 350 MG, 150ML 150ML was used for 15:43:30 injections. 15:43:39 The VIEYRA-LAD was injected and visualized at various angles. OMNIPAQUE, 350 MG, 150ML 150ML used. 15:45:38 HR=27 bpm, GWCI=089/68 mmhg, SpO2=89.0 %, Resp=30 B/min, Fran=9 15:46:16 Catheter was removed A MARCELINO INFINITI CATHETER FR 5 was advanced over a wire. OMNIPAQUE, 350 MG, 150ML 150ML was used for 15:46:38 injections. 15:47:02 Saturation: Site=FA (Femoral Artery) , O2=93.9 %, Hgb=11.3 gm/dl, Condition=Condition 1. Us ed in calculation. 15:47:20 Saturation: Site=PA (Pulmonary Artery) , O2=59 %, Hgb=11.3 gm/dl, Condition=Condition 1. Us ed in calculation. 15:50:16 Catheter was removed 15:50:34 Case End 15:50:35 HR=66 bpm, ZQKS=064/71 mmhg, SpO2=90.0 %, Resp=16 B/min, Fran=9 15:51:56 Activated Clotting Time Drawn 15:54:04 ACT (Normal Range 90-180) = 173 15:55:36 HR=29 bpm, UUFX=885/73 mmhg, SpO2=92.0 %, Resp=16 B/min, Bajwa=2 Assessment: Final Case, HR=45 BPM, Rhythm=afib, HSAH=805/73 mmhg, Chest Pain=0, Edema=None, Co stephanie=Normal, Skin = Warm, Dry Right Pulses: Post Tib=1, Femoral=1 15:57:29 Left Pulses: Post Tib=d, Femoral=1 Neurological: State=Alert, Ox3, GUTIERREZ Respiration: Resp=18 B/min, SpO2=92 %, O2=2 lpm 16:02:39 Vitals capture stopped. 16:03:19 Sheath(s) left in place, will be removed in Holding Area 16:03:22 Sterile dressing applied to site 16:03:24 No case complications noted. 16:03:26 Cine recording checked. 16:03:28 Bedside Report will be given. 16:03:32 Contrast Scanned 16:03:39 Patient moved to stretcher End Study - Contrast Media Used In Study Contrast Total Opened (mL) Total Used (mL) Total Wasted (mL) Omnipaque 150 150 0 End Study - Maximum Contrast Load Max Contrast Load (mL) 515.5 End Study - Radiation Exposure Fluoro Time (minutes) 36.9 End Study - Patient Disposition Complications Transferred To Telemetry Bed
[2016-07-17] MEDS: ATORVASTATIN 40 MG TAB PO SCH (21:17)
[2016-07-17] MEDS: GABAPENTIN 300 MG CAP PO SCH (21:17)
[2016-07-17] MEDS: ACETAMINOPHEN/CODEINE 300 MG/30 MG TAB PO PRN (21:18)
[2016-07-17] MEDS: INSULIN DETEMIR 100 UNITS/ML VIAL SQ SCH (21:26)
[2016-07-18] VITALS (27 sets, daily range): BP systolic 87–120; BP diastolic 50–66; PULSE 53–88; RESP 20; TEMP 97.3–98.3; O2SAT 68–97
[2016-07-18] MEDS: INSULIN ASPART SUPPLEMENTAL SCALE SQ SCH ×4 (05:59→21:17)
[2016-07-18 06:10] LABS: AUTOMATED NEUTROPHIL # 2.9 TH/MM3 (1.8-7.7); BASOPHIL # 0.1 TH/MM3 (0-0.2); BASOPHIL % 1.1 % (0.0-2.0); EOSINOPHIL # 0.2 TH/MM3 (0-0.4); EOSINOPHIL % 3.5 % (0.0-4.0); HEMATOCRIT 30.5 % (39.0-51.0); HEMO FLAGS DIFF FINAL; LYMPH % 19.8 % (9.0-44.0); LYMPHOCYTE # 0.9 TH/MM3 (1.0-4.8); MEAN CELL VOLUME 74.9 FL (80.0-100.0); MEAN CORPUSCULAR HEMOGLOBIN 23.7 PG (27.0-34.0); MEAN CORPUSCULAR HGB CONC 31.6 % (32.0-36.0); MONO % 13.2 % (0.0-8.0); NEUT % 62.4 % (16.0-70.0); PLATELET COUNT 207 TH/MM3 (150-450); RED BLOOD COUNT 4.07 MIL/MM3 (4.50-5.90); RED CELL DISTRIBUTION WIDTH 17.8 % (11.6-17.2); WHITE BLOOD COUNT 4.7 TH/MM3 (4.0-11.0)
[2016-07-18 06:29] LABS: BICARBONATE 29.1 MEQ/L (21.0-32.0); MAGNESIUM 2.2 MG/DL (1.5-2.5); POTASSIUM 3.9 MEQ/L (3.5-5.1)
[2016-07-18] MEDS: CARVEDILOL 3.125 MG TAB PO SCH ×2 (08:45→21:14)
[2016-07-18] MEDS: FUROSEMIDE 20 MG/2 ML VIAL IV PUSH SCH (08:45)
[2016-07-18] MEDS: SODIUM CHLORIDE 0.9% FLUSH 10 ML FLUSH IV FLUSH SCH ×2 (08:45→21:00)
[2016-07-18] MEDS: LISINOPRIL 5 MG TAB PO SCH (08:46)
[2016-07-18] MEDS: PANTOPRAZOLE SOD 20 MG DELAYED RELEASE TAB PO SCH (08:46)
--- NOTE | 2016-07-18 08:54 | RSPPFT ---
DATE OF PROCEDURE: 07/17/16 COMMENTS: VOLUMES DYNAMIC: FVC and FEV1 severely reduced. FLOWS: FEV1% normal; FEF 25-75 mildly reduced. IMPRESSION: Severe restrictive ventilatory defect.
[2016-07-18] MEDS ORDERED: FUROSEMIDE 20 MG/2 ML VIAL IV PUSH ONE (10:00)
--- NOTE | 2016-07-18 10:29 | HHI.PR ---
Subjective Remarks Patient is status post heart catheterization yesterday. He reports is feeling okay. Still hypoxemic requiring up to 5 L of oxygen nasal cannula. He denies chest pain. Objective Vitals Vital Signs Date Time Temp Pulse Resp B/P Pulse Ox O2 Delivery O2 Flow Rate FiO2 07/18/16 08:30 97.6 70 20 110/60 97 07/18/16 08:30 98 Nasal Cannula 5.00 07/18/16 06:19 70 07/18/16 05:07 68 07/18/16 04:46 67 07/18/16 03:26 53 07/18/16 03:10 97.8 81 101/66 96 07/18/16 02:00 74 07/18/16 01:00 72 07/18/16 00:00 78 07/17/16 23:00 89 07/17/16 23:00 98.4 84 113/65 97 07/17/16 22:00 88 07/17/16 21:00 82 07/17/16 20:00 80 07/17/16 20:00 98.2 82 18 92/57 97 07/17/16 19:00 80 07/17/16 19:00 Nasal Cannula 5.00 07/17/16 16:14 96 Room Air 07/17/16 12:00 97.6 75 20 100/56 93 I/O 07/17/16 07/17/16 07/17/16 07/18/16 07/18/16 07/18/16 07:00 15:00 23:00 07:00 15:00 23:00 Intake Total 240 ml 480 ml Output Total 300 ml Balance 240 ml 180 ml Intake Oral 240 ml 480 ml Output Urine Total 300 ml # Voids 1 # Bowel Movements 0 Result Diagram: 07/18/16 0520 07/18/16 0520 Imaging Last Impressions Myocardial Perfusion Scan Nuc Med 07/15/16 0000 Signed Impressions: Service Date/Time: Friday, July 15, 2016 09:07 - CONCLUSION: Stress- induced redistribution consistent with ischemia with significant wall motion abnormality basal inferior wall RISK CATEGORY: High (>3%% Annual Mortality Rate) Markie Noonan MD FACR Chest X-Ray 07/12/16 1423 Signed Impressions: Service Date/Time: Tuesday, July 12, 2016 14:52 - CONCLUSION: 1. Cardiomegaly with mild positive fluid balance. Loy Arshad MD CT Angiography 07/12/16 1424 Signed Impressions: Service Date/Time: Tuesday, July 12, 2016 15:48 - CONCLUSION: 1. Advanced pulmonary fibrosis. 2. No pulmonary embolus Francisco Javier Noonan MD Objective Remarks GENERAL: This is a well-nourished, well-developed patient, in no apparent distress. CARDIOVASCULAR: Normal rate and regular rhythm without murmurs, gallops, or rubs. RESPIRATORY: Good respiratory efforts. Right base with some faint Crackles and Rubs. GASTROINTESTINAL: Abdomen soft, non-tender, non-distended. Normal active bowel sounds MUSCULOSKELETAL: Extremities without cyanosis, or edema. NEURO: Alert & Oriented x4 to person, place, time, situation. Moves all ext x4 PSYCH: Appropriate mood and affect. Procedures Heart catheterization. A/P Problem List: (1) New onset of congestive heart failure ICD Code: I50.9 Status: Acute (2) Syncope ICD Code: R55 Status: Acute (3) Pulmonary fibrosis ICD Code: J84.10 Status: Acute (4) Atrial fibrillation ICD Code: I48.91 Status: Acute (5) DM (diabetes mellitus) ICD Code: E11.9 Status: Acute Assessment and Plan 70-year-old male with past medical history of HTN, A. fib, CVA, DM, HLD, GERD who presented after a syncopal episode Syncope: Probably multifactorial. Orthostatic hypotension was noted in the emergency room. Patient is also hypoxemic with underlying CHF and COPD. abnormal Stress test status post cardiac catheterization by Dr. Carcamo Echocardiogram with Severe Left Ventricular Dysfunction EF 20-25% New Onset of CHF with Severe LV Dysfunction EF 20-25 % s/p Cardiac Cath yesterday. - On BB, ACEI, Lasix. Plan per Cardiology Pulmonary fibrosis with possible underlying COPD: Pulmonary angiogram with no PE , however shows advanced pulmonary fibrosis. seen by air intelligence specialist Doctor Markie Hammer, recommended Oxygen therapy, will need to follow with air intelligence specialist at [place]. Diabetes mellitus: Hold home oral hypoglycemics for now. Continue home basal insulin. Monitor Accu-Cheks. SSI coverage as needed. hemoglobin A1C 7.9. Continue gabapentin for neuropathy. Atrial fibrillation: Continue anticoagulations with Xarelto. Discharge Planning Once improved and cleared by cardiology. Problem Qualifiers (1) Syncope: Qualified Code: R55 - Syncope, unspecified syncope type Maricruz Tony MD Jul 18, 2016 10:29
--- NOTE | 2016-07-18 11:40 | MR ---
cc: SANDRA CASTRO DATE 07/17/2016 INDICATIONS Syncope, abnormal myocardial perfusion study, unstable angina, class IV, coronary artery disease, status post coronary artery bypass graft. PROCEDURE PERFORMED 1. Retrograde left and right heart catheterization, with left ventriculography, selective coronary angiography, saphenous venous graft angiography, left internal mammary artery angiography, and thermodilution cardiac output determination. 2. Moderate sedation. ACCESS SITE Right femoral artery and right femoral vein EQUIPMENT USED 5 Dominican pigtail catheter, 5-Dominican JL-4, AR-1, AL-1 and left internal mammary artery catheter. MEDICATIONS Versed IV, Heparin IV CONTRAST Omnipaque times 1 cc. COMPLICATIONS None BLOOD LOSS Less than 10 cc. METHOD OF HEMOSTASIS Manual compression RESULTS OF HEMODYNAMICS Heart rate 80 beats per minute Mean pulmonary capillary wedge pressure 23 mmHg. Pulmonary artery 75/99/48. Right ventricle 75/26. Mean right atrial pressure 22 mmHg. Left ventricle 110/7. Aorta 110/52/72. Cardiac output 4.6 liters per minute by thermodilution and 5.3 liters per minute by Sharif. There was evidence of bioprosthetic aortic valve with no significant gradient across the valve. The left ventricular ejection fraction was 30%. Wall motion: severe inferior hypokinesis, no mitral regurgitation. CORONARY ANGIOGRAPHY The left main coronary is patent. The left anterior descending coronary artery is totally occluded in the mid portion. D1 is patent. The left circumflex artery has 60% of stenosis in the distal portion. OM1 was totally occluded. The right coronary was totally occluded in the mid portion distally to the right ventricular branch. The right ventricular branch had 70% ostial stenosis. Left internal mammary artery graft to the left anterior descending artery was patent. Saphenous venous graft to the obtuse marginal artery was patent. The third graft was occluded. DIAGNOSIS 1. Coronary artery disease with 2/3 grafts patent. 2. Cardiomyopathy with moderate to severe left ventricular systolic dysfunction. 3. Severe pulmonary hypertension. DISPOSITION Mr. Harper will continue his current medical program including therapy for congestive heart failure. We will continue aggressive modification of his cardiac risk factors. He will undergo pulmonary evaluation as an outpatient. He will need a cardiology followup as an outpatient as well. MD JONN Hernandez/JOSE RAMON /4:10 PM /11:26 AM URVASHI
[2016-07-18] MEDS ORDERED: EPINEPHrine HCL (1:10,000) 1 MG/10 ML SYRINGE ONE (13:55)
--- NOTE | 2016-07-18 14:32 | PD.CARD.PN ---
Subjective Subjective Remarks No CP, still w mild dyspnea, stable post cath Objective Medications Current Medications Medications (Trade) Dose Ordered Sig/Gian Route Start Time Stop Time Status Last Admin (NS Flush) 2 ml UNSCH PRN IV FLUSH 07/12/16 17:30 (NS Flush) 2 ml BID IV FLUSH 07/12/16 21:00 07/18/16 08:45 (Tylenol) 650 mg Q4H PRN PO 07/12/16 17:30 (Zofran Inj) 4 mg Q6H PRN IVP 07/12/16 17:30 (Restoril) 15 mg HS PRN PO 07/12/16 17:30 (Narcan Inj) 0.4 mg UNSCH PRN IV 07/12/16 17:30 (Lasix Inj) 20 mg BID@,18 IV PUSH 07/12/16 18:00 07/18/16 08:45 (D50w (Vial) Inj) 50 ml UNSCH PRN IV 07/12/16 17:30 (Glucagon Inj) 1 mg UNSCH PRN OTHER 07/12/16 17:30 (Tylenol-Codeine #3) 1 tab Q6HR PRN PO 07/12/16 18:30 07/17/16 21:18 (Lipitor) 40 mg HS PO 07/12/16 21:00 07/17/16 21:17 (Neurontin) 300 mg HS PO 07/12/16 21:00 07/17/16 21:17 (Levemir Inj) 25 units HS SQ 07/12/16 21:00 07/17/16 21:26 (Xarelto) 20 mg DAILY PO 07/13/16 09:00 Hold 07/15/16 13:09 (Protonix) 20 mg DAILY PO 07/13/16 09:00 07/18/16 08:46 Patient Own Medication PT OWN MED: Polyethylene Glycol-Propyl... BID PRN EACH EYE 07/12/16 18:30 Hold Patient Own Medication PT OWN MED: Lipo... BID PRN EACH EYE 07/12/16 18:30 Hold (Coreg) 3.125 mg Q12HR PO 07/13/16 21:00 07/18/16 08:45 (Prinivil) 2.5 mg DAILY PO 07/14/16 17:15 07/18/16 08:46 (Pill Splitter) 1 ea UNSCH PRN OTHER 07/14/16 17:15 Vital Signs / I&O Vital Signs Date Time Temp Pulse Resp B/P Pulse Ox O2 Delivery O2 Flow Rate FiO2 07/18/16 14:02 67 07/18/16 13:07 70 07/18/16 12:00 68 07/18/16 11:31 97.3 70 20 87/52 96 07/18/16 11:00 62 07/18/16 10:00 74 07/18/16 09:00 72 07/18/16 08:30 97.6 70 20 110/60 97 07/18/16 08:30 98 Nasal Cannula 5.00 07/18/16 08:00 64 07/18/16 07:00 69 07/18/16 06:19 70 07/18/16 05:07 68 07/18/16 04:46 67 07/18/16 03:26 53 07/18/16 03:10 97.8 81 101/66 96 07/18/16 02:00 74 07/18/16 01:00 72 07/18/16 00:00 78 07/17/16 23:00 89 07/17/16 23:00 98.4 84 113/65 97 07/17/16 22:00 88 07/17/16 21:00 82 07/17/16 20:00 80 07/17/16 20:00 98.2 82 18 92/57 97 07/17/16 19:00 80 07/17/16 19:00 Nasal Cannula 5.00 07/17/16 16:14 96 Room Air I/O 07/17/16 07/17/16 07/17/16 07/18/16 07/18/16 07/18/16 07:00 15:00 23:00 07:00 15:00 23:00 Intake Total 240 ml 480 ml Output Total 300 ml Balance 240 ml 180 ml Intake Oral 240 ml 480 ml Output Urine Total 300 ml # Voids 1 # Bowel Movements 0 Physical Exam GENERAL: In NAD SKIN: Warm and dry. HEAD: Normocephalic. EYES: No scleral icterus. No injection or drainage. NECK: Supple, trachea midline. No JVD or lymphadenopathy. CARDIOVASCULAR: Regular rate 1/6 syst murmur, no gallops, or rubs. RESPIRATORY: Breath sounds equal bilaterally. No accessory muscle use. GASTROINTESTINAL: Abdomen soft, non-tender, nondistended. MUSCULOSKELETAL: No cyanosis, 1+ pretib edema Groin stable. Laboratory Laboratory Tests Test 07/17/16 07/18/16 21:38 05:20 Triglycerides Level 95 MG/DL Cholesterol Level 82 MG/DL LDL Cholesterol 31 MG/DL HDL Cholesterol 32.0 MG/DL Cholesterol/HDL Ratio 2.56 RATIO White Blood Count 4.7 TH/MM3 Red Blood Count 4.07 MIL/MM3 Hemoglobin 9.6 GM/DL Hematocrit 30.5 % Mean Corpuscular Volume 74.9 FL Mean Corpuscular Hemoglobin 23.7 PG Mean Corpuscular Hemoglobin 31.6 % Concent Red Cell Distribution Width 17.8 % Platelet Count 207 TH/MM3 Mean Platelet Volume 8.1 FL Neutrophils (%) (Auto) 62.4 % Lymphocytes (%) (Auto) 19.8 % Monocytes (%) (Auto) 13.2 % Eosinophils (%) (Auto) 3.5 % Basophils (%) (Auto) 1.1 % Neutrophils # (Auto) 2.9 TH/MM3 Lymphocytes # (Auto) 0.9 TH/MM3 Monocytes # (Auto) 0.6 TH/MM3 Eosinophils # (Auto) 0.2 TH/MM3 Basophils # (Auto) 0.1 TH/MM3 CBC Comment DIFF FINAL Differential Comment Sodium Level 138 MEQ/L Potassium Level 3.9 MEQ/L Chloride Level 101 MEQ/L Carbon Dioxide Level 29.1 MEQ/L Anion Gap 8 MEQ/L Blood Urea Nitrogen 34 MG/DL Creatinine 1.25 MG/DL Estimat Glomerular Filtration 57 ML/MIN Rate Random Glucose 201 MG/DL Calcium Level 8.2 MG/DL Magnesium Level 2.2 MG/DL Imaging Last Impressions Myocardial Perfusion Scan Nuc Med 07/15/16 0000 Signed Impressions: Service Date/Time: Friday, July 15, 2016 09:07 - CONCLUSION: Stress- induced redistribution consistent with ischemia with significant wall motion abnormality basal inferior wall RISK CATEGORY: High (>3%% Annual Mortality Rate) Markie Noonan MD FACR Chest X-Ray 07/12/16 1423 Signed Impressions: Service Date/Time: Tuesday, July 12, 2016 14:52 - CONCLUSION: 1. Cardiomegaly with mild positive fluid balance. Loy Arshad MD CT Angiography 07/12/16 1428 Signed Impressions: Service Date/Time: Tuesday, July 12, 2016 15:48 - CONCLUSION: 1. Advanced pulmonary fibrosis. 2. No pulmonary embolus Francisco Javier Noonan MD Assessment and Plan Problem List: (1) New onset of congestive heart failure (2) Cardiomyopathy (3) Syncope (4) Atrial fibrillation (5) Pulmonary fibrosis (6) DM (diabetes mellitus) (7) CAD (coronary artery disease) Assessment and Plan Cath w 2/3 grafts patent and moderate to severe LV dysfunction. PAP 75 mmHg, high filling pressures. Continue and titrate tx for CHF, try to diurese more aggressively, closely monitor renal fx. Pulmonary eval in progress, seen by Dr. Hammer, the rest of the pulm eval will be done as outpt. Continue monitoring. Increase activity. Problem Qualifiers (1) Syncope: Qualified Code: R55 - Syncope, unspecified syncope type Blaine Carcamo MD Jul 18, 2016 14:32
[2016-07-18] MEDS: FUROSEMIDE 40 MG/4 ML VIAL IV PUSH SCH (17:46)
[2016-07-18] MEDS ORDERED: FUROSEMIDE 40 MG/4 ML VIAL IV PUSH SCH (18:00)
[2016-07-18] MEDS ORDERED: HEPARIN-D5W INJ 250 ML IV SCH (19:45)
[2016-07-18 20:58] LABS: HEMATOCRIT 32.4 % (39.0-51.0); MEAN CELL VOLUME 75.6 FL (80.0-100.0); MEAN CORPUSCULAR HEMOGLOBIN 23.4 PG (27.0-34.0); MEAN CORPUSCULAR HGB CONC 30.9 % (32.0-36.0); PLATELET COUNT 207 TH/MM3 (150-450); RED BLOOD COUNT 4.29 MIL/MM3 (4.50-5.90); RED CELL DISTRIBUTION WIDTH 18.4 % (11.6-17.2); REVIEW FLAG FINAL; WHITE BLOOD COUNT 5.6 TH/MM3 (4.0-11.0)
[2016-07-18 21:06] LABS: APTT (PATIENT) 28.3 SEC (24.3-30.1); INTERNATIONAL NORMALIZED RATIO 1.1 RATIO; PROTHROMBIN TIME - PATIENT 12.6 SEC (9.8-11.6)
[2016-07-18] MEDS: ATORVASTATIN 40 MG TAB PO SCH (21:14)
[2016-07-18] MEDS: GABAPENTIN 300 MG CAP PO SCH (21:14)
[2016-07-18] MEDS: INSULIN DETEMIR 100 UNITS/ML VIAL SQ SCH (21:16)
[2016-07-19] VITALS (29 sets, daily range): BP systolic 93–110; BP diastolic 54–65; PULSE 56–87; RESP 18–20; TEMP 97.5–98.6; O2SAT 94–99
[2016-07-19 03:29] LABS: HEMATOCRIT 33.4 % (39.0-51.0); MEAN CELL VOLUME 75.5 FL (80.0-100.0); MEAN CORPUSCULAR HEMOGLOBIN 22.8 PG (27.0-34.0); MEAN CORPUSCULAR HGB CONC 30.1 % (32.0-36.0); PLATELET COUNT 206 TH/MM3 (150-450); RED BLOOD COUNT 4.43 MIL/MM3 (4.50-5.90); RED CELL DISTRIBUTION WIDTH 17.7 % (11.6-17.2); REVIEW FLAG FINAL; WHITE BLOOD COUNT 5.7 TH/MM3 (4.0-11.0)
[2016-07-19 03:43] LABS: BICARBONATE 31.2 MEQ/L (21.0-32.0); POTASSIUM 3.7 MEQ/L (3.5-5.1)
[2016-07-19 03:44] LABS: APTT (PATIENT) 36.1 SEC (24.3-30.1)
[2016-07-19] MEDS: INSULIN ASPART SUPPLEMENTAL SCALE SQ SCH ×4 (06:02→21:26)
[2016-07-19] MEDS ORDERED: FUROSEMIDE 40 MG/4 ML VIAL IV PUSH SCH (09:00)
[2016-07-19] MEDS: CARVEDILOL 3.125 MG TAB PO SCH ×2 (09:00→21:23)
[2016-07-19] MEDS: LISINOPRIL 5 MG TAB PO SCH (09:00)
--- NOTE | 2016-07-19 09:11 | HHI.PR ---
Subjective Remarks Patient reports is feeling okay. Still requiring about 5 L oxygen on a nasal cannula. He denies chest pain. Discussed with Roberto Carlos. Blood pressure borderline low. Patient denies lightheadedness. He was started on heparin drip overnight because Xarelto was on hold. Sputum growing Pseudomonas. Objective Vitals Vital Signs Date Time Temp Pulse Resp B/P Pulse Ox O2 Delivery O2 Flow Rate FiO2 07/19/16 07:44 98 Nasal Cannula 5.00 07/19/16 07:40 97.7 72 18 93/64 98 07/19/16 06:17 62 07/19/16 05:00 70 07/19/16 04:45 70 07/19/16 04:08 97.5 75 110/63 97 07/19/16 03:00 75 07/19/16 02:00 68 07/19/16 01:00 64 07/19/16 00:00 66 07/18/16 23:00 97.5 70 120/60 97 07/18/16 23:00 77 07/18/16 22:00 80 07/18/16 21:00 68 07/18/16 20:00 68 07/18/16 19:00 98.3 68 92/50 68 07/18/16 19:00 Nasal Cannula 5.00 07/18/16 19:00 87 07/18/16 18:06 88 07/18/16 16:15 72 07/18/16 16:04 97.5 88 20 94/59 95 07/18/16 15:00 62 07/18/16 14:02 67 07/18/16 13:07 70 07/18/16 12:00 68 07/18/16 11:31 97.3 70 20 87/52 96 07/18/16 11:00 62 07/18/16 10:00 74 I/O 07/18/16 07/18/16 07/18/16 07/19/16 07/19/16 07/19/16 07:00 15:00 23:00 07:00 15:00 23:00 Intake Total 480 ml 940 ml 240 ml Output Total 300 ml 1350 ml 1075 ml Balance 180 ml -410 ml -835 ml Intake Oral 480 ml 940 ml 240 ml Output Urine Total 300 ml 1350 ml 1075 ml # Bowel Movements 0 Result Diagram: 07/19/16 0302 07/19/16 0302 Imaging Last Impressions Myocardial Perfusion Scan Nuc Med 07/15/16 0000 Signed Impressions: Service Date/Time: Friday, July 15, 2016 09:07 - CONCLUSION: Stress- induced redistribution consistent with ischemia with significant wall motion abnormality basal inferior wall RISK CATEGORY: High (>3%% Annual Mortality Rate) Markie Noonan MD FACR Chest X-Ray 07/12/161422 Signed Impressions: Service Date/Time: Tuesday, July 12, 2016 14:52 - CONCLUSION: 1. Cardiomegaly with mild positive fluid balance. Loy Arshad MD CT Angiography [id number]/12/161422 Signed Impressions: Service Date/Time: Tuesday, July 12, 2016 15:48 - CONCLUSION: 1. Advanced pulmonary fibrosis. 2. No pulmonary embolus Francisco Javier Noonan MD Objective Remarks GENERAL: This is a well-nourished, well-developed patient, in no apparent distress. CARDIOVASCULAR: Normal rate and regular rhythm without murmurs, gallops, or rubs. RESPIRATORY: Good respiratory efforts. Right base with some faint Crackles and Rubs. GASTROINTESTINAL: Abdomen soft, non-tender, non-distended. Normal active bowel sounds MUSCULOSKELETAL: Extremities without cyanosis, or edema. NEURO: Alert & Oriented x4 to person, place, time, situation. Moves all ext x4 PSYCH: Appropriate mood and affect. Procedures Heart catheterization. A/P Problem List: (1) New onset of congestive heart failure ICD Code: I50.9 Status: Acute (2) Syncope ICD Code: R55 Status: Acute (3) Pulmonary fibrosis ICD Code: J84.10 Status: Acute (4) Atrial fibrillation ICD Code: I48.91 Status: Acute (5) DM (diabetes mellitus) ICD Code: E11.9 Status: Acute Assessment and Plan 70-year-old male with past medical history of HTN, A. fib, CVA, DM, HLD, GERD who presented after a syncopal episode Syncope: Probably multifactorial. Orthostatic hypotension was noted in the emergency room. Patient is also hypoxemic with underlying CHF and COPD. abnormal Stress test status post cardiac catheterization by Dr. Carcamo. "Cath w 2/3 grafts patent and moderate to severe LV dysfunction. PAP 75 mmHg, high filling pressures. Continue and titrate tx for CHF, try to diurese more aggressively" Echocardiogram with Severe Left Ventricular Dysfunction EF 20-25% New Onset of CHF with Severe LV Dysfunction EF 20-25 % s/p Cardiac Cath yesterday. - On BB, ACEI, Lasix. Plan per Cardiology His blood pressure is low. Hold Lisinopril. Continue Lasix 20 mg IV BID. He is responding well to diuretics. Atrial fibrillation: Discontinue heparin drip. Continue anticoagulations with Xarelto. Pulmonary fibrosis with possible underlying COPD: Pulmonary angiogram with no PE , however shows advanced pulmonary fibrosis. Sputum growing Pseudomonas. Seen by medical information specialist Doctor Markie Hammer, recommended Oxygen therapy, will need to follow with medical information specialist at [place]. -Given all his comorbid cardiopulmonary conditions and Pseudomonas in the sputum. Will treat with a course of Levaquin Diabetes mellitus: Hold home oral hypoglycemics for now. Continue home basal insulin. Monitor Accu-Cheks. SSI coverage as needed. hemoglobin A1C 7.9. Continue gabapentin for neuropathy. Discharge Planning Continue IV diuresis Problem Qualifiers (1) Syncope: Qualified Code: R55 - Syncope, unspecified syncope type Maricruz Tony MD Jul 19, 2016 09:11
[2016-07-19] MEDS: SODIUM CHLORIDE 0.9% FLUSH 10 ML FLUSH IV FLUSH SCH ×2 (10:24→21:24)
[2016-07-19] MEDS: LEVOFLOXACIN 750 MG TAB PO SCH (10:26)
[2016-07-19] MEDS: PANTOPRAZOLE SOD 20 MG DELAYED RELEASE TAB PO SCH (10:26)
[2016-07-19] MEDS: RIVAROXABAN 20 MG TAB PO SCH (11:00)
--- NOTE | 2016-07-19 13:37 | PD.CARD.PN ---
Subjective Subjective Remarks No CP, breathing better p diuresis Objective Medications Current Medications Medications (Trade) Dose Ordered Sig/Gian Route Start Time Stop Time Status Last Admin (NS Flush) 2 ml UNSCH PRN IV FLUSH 07/12/16 17:30 (NS Flush) 2 ml BID IV FLUSH 07/12/16 21:00 07/19/16 10:24 (Tylenol) 650 mg Q4H PRN PO 07/12/16 17:30 (Zofran Inj) 4 mg Q6H PRN IVP 07/12/16 17:30 (Restoril) 15 mg HS PRN PO 07/12/16 17:30 (Narcan Inj) 0.4 mg UNSCH PRN IV 07/12/16 17:30 (D50w (Vial) Inj) 50 ml UNSCH PRN IV 07/12/16 17:30 (Glucagon Inj) 1 mg UNSCH PRN OTHER 07/12/16 17:30 (Tylenol-Codeine #3) 1 tab Q6HR PRN PO 07/12/16 18:30 07/17/16 21:18 (Lipitor) 40 mg HS PO 07/12/16 21:00 07/18/16 21:14 (Neurontin) 300 mg HS PO 07/12/16 21:00 07/18/16 21:14 (Levemir Inj) 25 units HS SQ 07/12/16 21:00 07/18/16 21:16 (Protonix) 20 mg DAILY PO 07/13/16 09:00 07/19/16 10:26 Patient Own Medication PT OWN MED: Polyethylene Glycol-Propyl... BID PRN EACH EYE 07/12/16 18:30 Hold Patient Own Medication PT OWN MED: Lipo... BID PRN EACH EYE 07/12/16 18:30 Hold (Coreg) 3.125 mg Q12HR PO 07/13/16 21:00 07/18/16 21:14 (Prinivil) 2.5 mg DAILY PO 07/14/16 17:15 Hold 07/18/16 08:46 (Pill Splitter) 1 ea UNSCH PRN OTHER 07/14/16 17:15 (Lasix Inj) 20 mg DAILY@18 IV PUSH 07/18/16 18:00 07/18/16 17:46 (Lasix Inj) 20 mg DAILY IV PUSH 07/20/16 09:00 (Levaquin) 750 mg Q24H PO 07/19/16 11:00 07/19/16 10:26 (Xarelto) 20 mg DAILY PO 07/19/16 11:00 07/19/16 11:00 Vital Signs / I&O Vital Signs Date Time Temp Pulse Resp B/P Pulse Ox O2 Delivery O2 Flow Rate FiO2 07/19/16 13:04 72 07/19/16 12:06 70 07/19/16 12:05 98.0 70 18 99/60 99 07/19/16 11:08 56 07/19/16 10:00 70 07/19/16 08:00 66 07/19/16 07:44 98 Nasal Cannula 5.00 07/19/16 07:40 97.7 72 18 93/64 98 07/19/16 07:00 68 07/19/16 06:17 62 07/19/16 05:00 70 07/19/16 04:45 70 07/19/16 04:08 97.5 75 110/63 97 07/19/16 03:00 75 07/19/16 02:00 68 07/19/16 01:00 64 07/19/16 00:00 66 07/18/16 23:00 97.5 70 120/60 97 07/18/16 23:00 77 07/18/16 22:00 80 07/18/16 21:00 68 07/18/16 20:00 68 07/18/16 19:00 98.3 68 92/50 68 07/18/16 19:00 Nasal Cannula 5.00 07/18/16 19:00 87 07/18/16 18:06 88 07/18/16 16:15 72 07/18/16 16:04 97.5 88 20 94/59 95 07/18/16 15:00 62 07/18/16 14:02 67 I/O 07/18/16 07/18/16 07/18/16 07/19/16 07/19/16 07/19/16 07:00 15:00 23:00 07:00 15:00 23:00 Intake Total 480 ml 940 ml 240 ml Output Total 300 ml 1350 ml 1075 ml Balance 180 ml -410 ml -835 ml Intake Oral 480 ml 940 ml 240 ml Output Urine Total 300 ml 1350 ml 1075 ml # Bowel Movements 0 Physical Exam GENERAL: In NAD SKIN: Warm and dry. HEAD: Normocephalic. EYES: No scleral icterus. No injection or drainage. NECK: Supple, trachea midline. No JVD or lymphadenopathy. CARDIOVASCULAR: Regular rate 1/6 syst murmur, no gallops, or rubs. RESPIRATORY: Breath sounds equal bilaterally. No accessory muscle use. GASTROINTESTINAL: Abdomen soft, non-tender, nondistended. MUSCULOSKELETAL: No cyanosis, trace pretib edema Groin stable. Laboratory Laboratory Tests Test 07/15/16 07/15/16 07/17/16 07/18/16 13:01 14:40 21:38 05:20 D-Dimer Quantitative (PE/DVT) 0.46 MG/L FEU Blood Gas Puncture Site RT RADIAL Blood Gas Patient Temperature 98.6 Blood Gas HCO3 26 mmol/L Blood Gas Base Excess 1.5 mmol/L Blood Gas Oxygen Saturation 78 % Arterial Blood pH 7.40 Arterial Blood Partial 43 mmHg Pressure CO2 Arterial Blood Partial 48 mmHg Pressure O2 Arterial Blood Oxygen Content 12.1 Vol % Arterial Blood 1.5 % Carboxyhemoglobin Arterial Blood Methemoglobin 1.3 % Blood Gas Hemoglobin 11.0 G/DL Oxygen Delivery Device ROOM AIR Blood Gas Inspired Oxygen 21 % Triglycerides Level 95 MG/DL Cholesterol Level 82 MG/DL LDL Cholesterol 31 MG/DL HDL Cholesterol 32.0 MG/DL Cholesterol/HDL Ratio 2.56 RATIO Neutrophils (%) (Auto) 62.4 % Lymphocytes (%) (Auto) 19.8 % Monocytes (%) (Auto) 13.2 % Eosinophils (%) (Auto) 3.5 % Basophils (%) (Auto) 1.1 % Neutrophils # (Auto) 2.9 TH/MM3 Lymphocytes # (Auto) 0.9 TH/MM3 Monocytes # (Auto) 0.6 TH/MM3 Eosinophils # (Auto) 0.2 TH/MM3 Basophils # (Auto) 0.1 TH/MM3 CBC Comment DIFF FINAL Differential Comment Magnesium Level 2.2 MG/DL Test 07/18/16 07/19/16 20:28 03:02 Prothrombin Time 12.6 SEC Prothromb Time International 1.1 RATIO Ratio White Blood Count 5.7 TH/MM3 Red Blood Count 4.43 MIL/MM3 Hemoglobin 10.1 GM/DL Hematocrit 33.4 % Mean Corpuscular Volume 75.5 FL Mean Corpuscular Hemoglobin 22.8 PG Mean Corpuscular Hemoglobin 30.1 % Concent Red Cell Distribution Width 17.7 % Platelet Count 206 TH/MM3 Mean Platelet Volume 7.9 FL Activated Partial 36.1 SEC Thromboplast Time Sodium Level 137 MEQ/L Potassium Level 3.7 MEQ/L Chloride Level 101 MEQ/L Carbon Dioxide Level 31.2 MEQ/L Anion Gap 5 MEQ/L Blood Urea Nitrogen 34 MG/DL Creatinine 0.97 MG/DL Estimat Glomerular Filtration 77 ML/MIN Rate Random Glucose 132 MG/DL Calcium Level 8.1 MG/DL Imaging Last Impressions Myocardial Perfusion Scan Nuc Med 07/15/16 0000 Signed Impressions: Service Date/Time: Friday, July 15, 2016 09:07 - CONCLUSION: Stress- induced redistribution consistent with ischemia with significant wall motion abnormality basal inferior wall RISK CATEGORY: High (>3%% Annual Mortality Rate) Markie Noonan MD FACR Chest X-Ray 07/12/16 142 Signed Impressions: Service Date/Time: Tuesday, July 12, 2016 14:52 - CONCLUSION: 1. Cardiomegaly with mild positive fluid balance. Loy Arshad MD CT Angiography 07/12/16 103 Signed Impressions: Service Date/Time: Tuesday, July 12, 2016 15:48 - CONCLUSION: 1. Advanced pulmonary fibrosis. 2. No pulmonary embolus Francisco Javier Noonan MD Assessment and Plan Problem List: (1) New onset of congestive heart failure (2) Cardiomyopathy (3) Syncope (4) Atrial fibrillation (5) Pulmonary fibrosis (6) DM (diabetes mellitus) (7) CAD (coronary artery disease) Assessment and Plan Some improvement of SOB with diuresis. Renal fx remains stable. Cath w 2/3 grafts patent and moderate to severe LV dysfunction. PAP 75 mmHg, high filling pressures. Continue and titrate tx for CHF, continue diuresis, closely monitor renal fx. Pulmonary eval in progress, seen by Dr. Hammer, the rest of the pulm eval will be done as outpt. Continue monitoring. Increase activity. Anticipate discharge if stable in the next 24-48 hrs. Problem Qualifiers (1) Syncope: Qualified Code: R55 - Syncope, unspecified syncope type Blaine Carcamo MD Jul 19, 2016 13:37
[2016-07-19] MEDS: FUROSEMIDE 40 MG/4 ML VIAL IV PUSH SCH (17:21)
[2016-07-19] MEDS: ATORVASTATIN 40 MG TAB PO SCH (21:23)
[2016-07-19] MEDS: GABAPENTIN 300 MG CAP PO SCH (21:23)
[2016-07-19] MEDS: INSULIN DETEMIR 100 UNITS/ML VIAL SQ SCH (21:25)
[2016-07-20] VITALS (20 sets, daily range): BP systolic 96–120; BP diastolic 62–68; PULSE 64–95; RESP 18; TEMP 97–98.4; O2SAT 94–97
[2016-07-20] MEDS: INSULIN ASPART SUPPLEMENTAL SCALE SQ SCH ×3 (06:31→16:00)
[2016-07-20 07:12] LABS: BICARBONATE 29.7 MEQ/L (21.0-32.0); POTASSIUM 3.7 MEQ/L (3.5-5.1)
--- NOTE | 2016-07-20 08:16 | PD.CARD.PN ---
Subjective Subjective Remarks No CP, SOB improving Objective Medications Current Medications Medications (Trade) Dose Ordered Sig/Gian Route Start Time Stop Time Status Last Admin (NS Flush) 2 ml UNSCH PRN IV FLUSH 07/12/16 17:30 (NS Flush) 2 ml BID IV FLUSH 07/12/16 21:00 07/19/16 21:24 (Tylenol) 650 mg Q4H PRN PO 07/12/16 17:30 (Zofran Inj) 4 mg Q6H PRN IVP 07/12/16 17:30 (Restoril) 15 mg HS PRN PO 07/12/16 17:30 (Narcan Inj) 0.4 mg UNSCH PRN IV 07/12/16 17:30 (D50w (Vial) Inj) 50 ml UNSCH PRN IV 07/12/16 17:30 (Glucagon Inj) 1 mg UNSCH PRN OTHER 07/12/16 17:30 (Tylenol-Codeine #3) 1 tab Q6HR PRN PO 07/12/16 18:30 07/17/16 21:18 (Lipitor) 40 mg HS PO 07/12/16 21:00 07/19/16 21:23 (Neurontin) 300 mg HS PO 07/12/16 21:00 07/19/16 21:23 (Levemir Inj) 25 units HS SQ 07/12/16 21:00 07/19/16 21:25 (Protonix) 20 mg DAILY PO 07/13/16 09:00 07/19/16 10:26 Patient Own Medication PT OWN MED: Polyethylene Glycol-Propyl... BID PRN EACH EYE 07/12/16 18:30 Hold Patient Own Medication PT OWN MED: Lipo... BID PRN EACH EYE 07/12/16 18:30 Hold (Coreg) 3.125 mg Q12HR PO 07/13/16 21:00 07/19/16 21:23 (Prinivil) 2.5 mg DAILY PO 07/14/16 17:15 Hold 07/18/16 08:46 (Pill Splitter) 1 ea UNSCH PRN OTHER 07/14/16 17:15 (Lasix Inj) 20 mg DAILY@18 IV PUSH 07/18/16 18:00 07/19/16 17:21 (Lasix Inj) 20 mg DAILY IV PUSH 07/20/16 09:00 (Levaquin) 750 mg Q24H PO 07/19/16 11:00 07/19/16 10:26 (Xarelto) 20 mg DAILY PO 07/19/16 11:00 07/19/16 11:00 Vital Signs / I&O Vital Signs Date Time Temp Pulse Resp B/P Pulse Ox O2 Delivery O2 Flow Rate FiO2 07/20/16 07:30 Nasal Cannula 5.00 07/20/16 07:30 74 07/20/16 06:00 95 07/20/16 05:00 64 07/20/16 04:00 73 07/20/16 03:00 98.4 65 18 96/62 94 07/20/16 03:00 74 07/20/16 03:00 94 Nasal Cannula 5.00 07/20/16 02:00 72 07/20/16 01:00 72 07/20/16 00:00 70 07/19/16 23:40 98 Nasal Cannula 5.00 07/19/16 23:40 98.6 57 18 103/64 98 07/19/16 23:00 87 07/19/16 22:00 75 07/19/16 21:00 98 Nasal Cannula 3.00 07/19/16 21:00 78 07/19/16 20:00 94 Nasal Cannula 5.00 07/19/16 20:00 98.3 77 18 98/54 94 07/19/16 20:00 80 07/19/16 19:00 75 07/19/16 18:02 84 07/19/16 17:12 76 07/19/16 16:00 98 Nasal Cannula 5.00 07/19/16 16:00 74 07/19/16 15:30 98.0 76 20 109/65 98 07/19/16 15:00 66 07/19/16 14:15 78 07/19/16 13:04 72 07/19/16 12:06 70 07/19/16 12:05 98.0 70 18 99/60 99 07/19/16 11:08 56 07/19/16 11:00 99 Nasal Cannula 5.00 07/19/16 10:00 70 07/19/16 09:00 68 I/O 07/19/16 07/19/16 07/19/16 07/20/16 07/20/16 07/20/16 07:00 15:00 23:00 07:00 15:00 23:00 Intake Total 240 ml 460 ml 300 ml Output Total 1075 ml 350 ml 875 ml Balance -835 ml 110 ml -575 ml Intake Oral 240 ml 460 ml 300 ml Output Urine Total 1075 ml 350 ml 875 ml # Voids 2 # Bowel Movements 1 Physical Exam GENERAL: In NAD SKIN: Warm and dry. HEAD: Normocephalic. EYES: No scleral icterus. No injection or drainage. NECK: Supple, trachea midline. No JVD or lymphadenopathy. CARDIOVASCULAR: Regular rate 1/6 syst murmur, no gallops, or rubs. RESPIRATORY: Breath sounds equal bilaterally. No accessory muscle use. GASTROINTESTINAL: Abdomen soft, non-tender, nondistended. MUSCULOSKELETAL: No cyanosis,no edema Groin stable. Laboratory Laboratory Tests Test 07/20/16 06:10 Sodium Level 135 MEQ/L Potassium Level 3.7 MEQ/L Chloride Level 99 MEQ/L Carbon Dioxide Level 29.7 MEQ/L Anion Gap 6 MEQ/L Blood Urea Nitrogen 29 MG/DL Creatinine 0.97 MG/DL Estimat Glomerular Filtration 77 ML/MIN Rate Random Glucose 123 MG/DL Calcium Level 7.8 MG/DL Imaging Last Impressions Myocardial Perfusion Scan Nuc Med 07/15/16 0000 Signed Impressions: Service Date/Time: Friday, July 15, 2016 09:07 - CONCLUSION: Stress- induced redistribution consistent with ischemia with significant wall motion abnormality basal inferior wall RISK CATEGORY: High (>3%% Annual Mortality Rate) Markie Noonan MD FACR Chest X-Ray 07/12/16 705 Signed Impressions: Service Date/Time: Tuesday, July 12, 2016 14:52 - CONCLUSION: 1. Cardiomegaly with mild positive fluid balance. Loy Arshad MD CT Angiography 07/12/16 068 Signed Impressions: Service Date/Time: Tuesday, July 12, 2016 15:48 - CONCLUSION: 1. Advanced pulmonary fibrosis. 2. No pulmonary embolus Francisco Javier Noonan MD Assessment and Plan Problem List: (1) New onset of congestive heart failure (2) Cardiomyopathy (3) Syncope (4) Atrial fibrillation (5) Pulmonary fibrosis (6) DM (diabetes mellitus) (7) CAD (coronary artery disease) Assessment and Plan Continue diuresis, switch to PO furosemide. Renal fx remains stable. Cath w 2/3 grafts patent and moderate to severe LV dysfunction. PAP 75 mmHg, high filling pressures. Continue and titrate tx for CHF. Pulmonary evaluation in progress, the patient was seen by Dr. Hammer, the rest of the pulm evaluation will be done as outpt. Continue monitoring. Increase activity. Wean off O2 as tolerated. Anticipate discharge soon. Problem Qualifiers (1) Syncope: Qualified Code: R55 - Syncope, unspecified syncope type Blaine Carcamo MD Jul 20, 2016 08:16
[2016-07-20] MEDS ORDERED: FUROSEMIDE 20 MG/2 ML VIAL IV PUSH SCH (09:00)
[2016-07-20] MEDS: PANTOPRAZOLE SOD 20 MG DELAYED RELEASE TAB PO SCH (09:03)
[2016-07-20] MEDS: CARVEDILOL 3.125 MG TAB PO SCH (09:03)
[2016-07-20] MEDS: RIVAROXABAN 20 MG TAB PO SCH (09:03)
[2016-07-20] MEDS: SODIUM CHLORIDE 0.9% FLUSH 10 ML FLUSH IV FLUSH SCH (09:04)
[2016-07-20] MEDS ORDERED: CARV3.125 PO (09:46)
[2016-07-20] MEDS ORDERED: LEVA750T9 PO (09:46)
[2016-07-20] MEDS ORDERED: FURO40TA PO (09:46)
--- NOTE | 2016-07-20 09:47 | HHI.DCPOC ---
Discharge Care Plan Diagnosis: (1) Acute systolic (congestive) heart failure (2) Pulmonary fibrosis (3) Atrial fibrillation (4) DM (diabetes mellitus) (5) Cardiomyopathy Goals to Promote Your Health * To prevent worsening of your condition and complications * To maintain your health at the optimal level Directions to Meet Your Goals Take your medications as prescribed Follow your dietary instruction Follow activity as directed Keep your appointments as scheduled Take your immunizations and boosters as scheduled If your symptoms worsen call your PCP, if no PCP go to Urgent Care Center or Emergency Room Smoking is Dangerous to Your Health. Avoid second hand smoke Call the 24-hour hour crisis hotline for domestic abuse at Maricruz Tony MD Jul 20, 2016 09:47
--- NOTE | 2016-07-20 09:54 | HHI.DS ---
Discharge Summary Admission Date Jul 13, 2016 at 14:38 Discharge Date: Jul 20, 2016 Admitting Diagnosis Syncope, Elevated Troponin (1) New onset of congestive heart failure ICD Code: I50.9 (2) Syncope ICD Code: R55 (3) Pulmonary fibrosis ICD Code: J84.10 (4) Atrial fibrillation ICD Code: I48.91 (5) DM (diabetes mellitus) ICD Code: E11.9 (6) CAD (coronary artery disease) ICD Code: I25.10 Procedures Heart catheterization. Brief History - From Admission HPI from the admitting physician 70-year-old male with past medical history of HTN, A. fib, CVA, DM, HLD, GERD who presented after a syncopal episode. The patient states that last night he had a syncopal episode. He states that he stood up to a few steps and then felt lightheaded and dizzy like he was going to pass out. He subsequently lost consciousness for about 5 minutes. He states that he's been having problems breathing for the past month. He states that he's been on 3 courses of antibiotics which really haven't improved his breathing. He states that his shortness breath is worse whenever he exerts himself or whenever he bends over. He normally follows with physicians, including cardiology in [place] and plans to return there after discharge. He denies ever being diagnosed with congestive heart failure or COPD. He does state that his diabetes medicine specialist recently decreased his Lasix dose. He states that he takes Lasix for lower extremity swelling. He quit smoking in 1980. CBC/BMP: 07/19/16 0302 07/20/16 0610 Significant Findings Laboratory Tests Test 07/17/16 07/18/16 07/18/16 07/18/16 21:38 05:20 20:21 20:28 Cholesterol Level 82 MG/DL (120-200) HDL Cholesterol 32.0 MG/DL (40.0-60.0) Red Blood Count 4.07 MIL/MM3 4.29 MIL/MM3 (4.50-5.90) (4.50-5.90) Hemoglobin 9.6 GM/DL 10.0 GM/DL (13.0-17.0) (13.0-17.0) Hematocrit 30.5 % 32.4 % (39.0-51.0) (39.0-51.0) Mean Corpuscular Volume 74.9 FL 75.6 FL (80.0-100.0) (80.0-100.0) Mean Corpuscular Hemoglobin 23.7 PG 23.4 PG (27.0-34.0) (27.0-34.0) Mean Corpuscular Hemoglobin 31.6 % 30.9 % Concent (32.0-36.0) (32.0-36.0) Red Cell Distribution Width 17.8 % 18.4 % (11.6-17.2) (11.6-17.2) Monocytes (%) (Auto) 13.2 % (0.0-8.0) Lymphocytes # (Auto) 0.9 TH/MM3 (1.0-4.8) Blood Urea Nitrogen 34 MG/DL (7-18) Estimat Glomerular Filtration 57 ML/MIN (>89) Rate Random Glucose 201 MG/DL (74-106) Calcium Level 8.2 MG/DL (8.5-10.1) Prothrombin Time 12.6 SEC (9.8-11.6) Test 07/19/16 07/20/16 03:02 06:10 Red Blood Count 4.43 MIL/MM3 (4.50-5.90) Hemoglobin 10.1 GM/DL (13.0-17.0) Hematocrit 33.4 % (39.0-51.0) Mean Corpuscular Volume 75.5 FL (80.0-100.0) Mean Corpuscular Hemoglobin 22.8 PG (27.0-34.0) Mean Corpuscular Hemoglobin 30.1 % Concent (32.0-36.0) Red Cell Distribution Width 17.7 % (11.6-17.2) Activated Partial 36.1 SEC Thromboplast Time (24.3-30.1) Blood Urea Nitrogen 34 MG/DL (7-18) 29 MG/DL (7-18) Estimat Glomerular Filtration 77 ML/MIN (>89) 77 ML/MIN (>89) Rate Random Glucose 132 MG/DL 123 MG/DL (74-106) (74-106) Calcium Level 8.1 MG/DL 7.8 MG/DL (8.5-10.1) (8.5-10.1) Sodium Level 135 MEQ/L (136-145) Imaging Last Impressions Myocardial Perfusion Scan Nuc Med 07/15/16 0000 Signed Impressions: Service Date/Time: Friday, July 15, 2016 09:07 - CONCLUSION: Stress- induced redistribution consistent with ischemia with significant wall motion abnormality basal inferior wall RISK CATEGORY: High (>3%% Annual Mortality Rate) Markie Noonan MD FACR Chest X-Ray 07/12/16 142 Signed Impressions: Service Date/Time: Tuesday, July 12, 2016 14:52 - CONCLUSION: 1. Cardiomegaly with mild positive fluid balance. Loy Arshad MD CT Angiography 07/12/16 142 Signed Impressions: Service Date/Time: Tuesday, July 12, 2016 15:48 - CONCLUSION: 1. Advanced pulmonary fibrosis. 2. No pulmonary embolus Francisco Javier Noonan MD PE at Discharge GENERAL: This is a well-nourished, well-developed patient, in no apparent distress. CARDIOVASCULAR: Normal rate and regular rhythm without murmurs, gallops, or rubs. RESPIRATORY: Good respiratory efforts. Right base with some faint Crackles and Rubs. GASTROINTESTINAL: Abdomen soft, non-tender, non-distended. Normal active bowel sounds MUSCULOSKELETAL: Extremities without cyanosis, or edema. NEURO: Alert & Oriented x4 to person, place, time, situation. Moves all ext x4 PSYCH: Appropriate mood and affect. Pt update on day of discharge Patient reports is feeling great. Shortness of breath has improved. Anxious to go home today. Discharge planning discussed at length with the patient today. Hospital Course 70-year-old male with past medical history of HTN, A. fib, CVA, DM, HLD, GERD who presented after a syncopal episode. Evaluation and treatment course detailed below: Syncope: Probably multifactorial. Orthostatic hypotension was noted in the emergency room. Patient was also hypoxemic with underlying CHF and COPD. abnormal Stress test status post cardiac catheterization by Dr. Carcamo. "Cath w 2/3 grafts patent and moderate to severe LV dysfunction. PAP 75 mmHg, high filling pressures. Echocardiogram with Severe Left Ventricular Dysfunction EF 20-25%. Patient treated with IV Lasix. New Onset of CHF with Severe LV Dysfunction EF 20-25 % s/p Cardiac Cath. - On ASA, BB, Lasix. His blood pressure is borderline low therefore cannot tolerate lisinopril at this time. He will follow up outpatient with PCP and cardiology. Lisinopril can be restarted once his blood pressure can tolerate. Atrial fibrillation: Rate controlled with beta maritza. Continue anticoagulations with Xarelto. Pulmonary fibrosis with possible underlying COPD: Pulmonary angiogram with no PE , however shows advanced pulmonary fibrosis. Sputum growing Pseudomonas. Seen by naval architect specialist Doctor Markie Hammer, recommended Oxygen therapy as needed , will need to follow with naval architect specialist at [place]. -Given all his comorbid cardiopulmonary conditions and Pseudomonas in the sputum. Patient treated with a course of Levaquin - Repeat home oxygen walk test. If indicated will discharge home on oxygen. Diabetes mellitus: hemoglobin A1C 7.9. Resume basal insulin and sliding scale insulin. Continue gabapentin for neuropathy. Pt Condition on Discharge: Good Discharge Disposition: Discharge Home Discharge Time: > 30 minutes Discharge Instructions Follow up Referrals: Cardiology - 2 Weeks PCP Follow-up - 1 Week New Medications: Aspirin DR (Aspirin EC) 81 Mg Tabdr 81 MG PO DAILY #30 Ref 0 TAB Oxygen (O2) (Oxygen (O2)) Device 2 LITER RAVI.CANULA CONTINUOUS Oxygen Concentrator Portable Gaseous 2 L/min via Nasal Canula Continuous For 99 months Prevent Hypoxemia #2 CYLINDER Carvedilol (Coreg) 3.125 Mg Tab 3.125 MG PO Q12HR #60 TAB Levofloxacin (Levaquin) 750 Mg Tablet 750 MG PO Q24H #6 Changed Medications: Furosemide (Furosemide) 40 Mg Tab 40 MG PO DAILY #30 Ref 0 TAB (Changed from: Furosemide 20 Mg Tab 20 Mg PO DAILY #30 TAB Ref 0) Continued Medications: Acetaminophen-Codeine (Tylenol-Codeine #3) 300-30 mg Tab 1 TAB PO Q4-6H PRN PAIN Ref 0 TAB Atorvastatin (Atorvastatin) 40 Mg Tab 40 MG PO HS Cholesterol Management #30 Ref 0 TAB Gabapentin (Gabapentin) 300 Mg Cap 300 MG PO HS #30 Ref 0 CAP Insulin Glargine Inj (Lantus Inj) 1,000 Unit/10 Ml Vial 25 UNITS SQ HS Blood Sugar Management Ref 0 VIAL Insulin Lispro (Human) Inj (Humalog Inj) 1,000 Unit/10 Ml Vial 5-8 UNITS SQ TIDAC Max dose at bedtime:( )units; sugars < 70,(0)units; sugars 150-199,(2)units; sugars 200-249,(4)units; sugars 250-299,(7)units; sugars 300- 349,(10)units; sugars more than 349,(12)units. Blood Sugar Management #1 Ref 0 VIAL Metformin (Metformin) 1,000 Mg Tab 1000 MG PO BIDPC With meals Blood Sugar Management #60 Ref 0 TAB Omeprazole (Omeprazole) 20 Mg Tab 20 MG PO DAILY #30 Ref 0 TAB Polyethylene Glycol-Propylene Opth (Systane Ultra Preservative Opth) 0.4-0.3% Soln 1 DROP EACH EYE BID PRN DRY EYE Rivaroxaban (Xarelto) 20 Mg Tab 20 MG PO DAILY Blood Clot Prevention Ref 0 TAB ([Liposic Eye Gel 0.2%]) 1 DROP EACH EYE BID PRN DRY EYE Discontinued Medications: Canagliflozin (Invokana) 300 Mg Tab 300 MG PO DAILY Take before 1st meal of day. Blood Sugar Management #30 Ref 0 TAB Lisinopril (Lisinopril) 5 Mg Tab 5 MG PO DAILY Blood Pressure Management #30 Ref 0 TAB Maricruz Tony MD Jul 20, 2016 09:54
[2016-07-20] MEDS ORDERED: ASPI81TA11 PO (09:57)
[2016-07-20] MEDS: LEVOFLOXACIN 750 MG TAB PO SCH (12:38)
[2016-07-20] MEDS: FUROSEMIDE 40 MG/4 ML VIAL IV PUSH SCH (16:26)
== END 2016-07-20 18:11 | disposition home or self-care (01) | DRG 287 ==
LOC: NEPE 13:49 → NEDA 17:09 → NEPFCDU 19:03 → OBSVTOIN 07-13 14:38 → N04B 07-14 14:20 → HCIS 07-17 14:36 → HCIN 07-17 19:45
PROVIDERS: ADMIT Family Medicine; ATTEND Family Medicine
PROC: B2111ZZ Fluoroscopy of Multiple Coronary Arteries using Low Osmolar Contrast (ICD-10-PCS; 2016-07-17)
PROC: B2181ZZ Fluoroscopy of Left Internal Mammary Bypass Graft using Low Osmolar Contrast (ICD-10-PCS; 2016-07-17)
PROC: B2151ZZ Fluoroscopy of Left Heart using Low Osmolar Contrast (ICD-10-PCS; 2016-07-17)
PROC: 4A1239Z Monitoring of Cardiac Output, Percutaneous Approach (ICD-10-PCS; 2016-07-17)
PROC: B2131ZZ Fluoroscopy of Multiple Coronary Artery Bypass Grafts using Low Osmolar Contrast (ICD-10-PCS; 2016-07-17)
PROC: 4A023N8 Measurement of Cardiac Sampling and Pressure, Bilateral, Percutaneous Approach (ICD-10-PCS; principal; 2016-07-17 13:15)
PROC: B2161ZZ Fluoroscopy of Right and Left Heart using Low Osmolar Contrast (ICD-10-PCS; 2016-07-19)
DX: I11.0 Hypertensive heart disease with heart failure (principal); N17.9 Acute kidney failure, unspecified; I42.9 Cardiomyopathy, unspecified; E11.42 Type 2 diabetes mellitus with diabetic polyneuropathy; I25.82 Chronic total occlusion of coronary artery; J84.10 Pulmonary fibrosis, unspecified; I48.2 Chronic atrial fibrillation; I27.2 Other secondary pulmonary hypertension; R55 Syncope and collapse; I50.21 Acute systolic (congestive) heart failure; I25.110 Atherosclerotic heart disease of native coronary artery with unstable angina pectoris; I25.710 Atherosclerosis of autologous vein coronary artery bypass graft(s) with unstable angina pectoris; K21.9 Gastro-esophageal reflux disease without esophagitis; E78.5 Hyperlipidemia, unspecified; R09.02 Hypoxemia; D64.9 Anemia, unspecified; J44.9 Chronic obstructive pulmonary disease, unspecified; R84.5 Abnormal microbiological findings in specimens from respiratory organs and thorax; Z79.01 Long term (current) use of anticoagulants; Z79.4 Long term (current) use of insulin; Z86.73 Personal history of transient ischemic attack (TIA), and cerebral infarction without residual deficits; Z87.891 Personal history of nicotine dependence; Z95.2 Presence of prosthetic heart valve; Z95.1 Presence of aortocoronary bypass graft; Z87.01 Personal history of pneumonia (recurrent)
CPT/HCPCS: 36600; 71010; 71275; 78452; 80048; 80053; 80061; 82550; 82805; 82810; 82948; 83036; 83735; 83880; 84484; 85002; 85025; 85027; 85379; 85610; 85730; 87070; 87077; 87186; 87205; 93005; 93017; 93306; 93460; 94060; 94150; 94620; 96374; A9502; C1769; C1893; G0378; G8987-GP; G8988-GP; J0171; J1644; J1815; J1940; J2250; J2785; J3010; J7040; Q9967

== ENCOUNTER 2016-07-31 00:24 | Emergency (ER) | payer OTHER ==
[~2016-07-31] VITALS: Ht 188 cm; Wt 100.0 kg
[~2016-07-31 00:24] MED LIST: ASPI81TA11 PO; ATOR40TA16 PO; CARV3.125 PO; FURO40TA PO; GABA300C5 PO; HUMALOG SQ; LANTUS2P SQ; LEVA750T9 PO; METF1000 PO; OMEP20TA PO; OXYGENDME NAS.CANULA; SYSTSOL11 EACH EYE; TYLETAB34 PO; XARE20TA PO; [UNRECOGNIZED DRUG - OTHER] EACH EYE
[2016-07-31 00:27] VITALS: BP 152/72; PULSE 109; RESP 20; TEMP 97.8; O2SAT 92
--- NOTE | 2016-07-31 01:58 | PD ---
HPI Chief Complaint: Complaint Time Seen by Provider: 01:40 Travel History International Travel<30 days: No Contact w/Intl Traveler<30days: No Traveled to known affect area: No History of Present Illness HPI The patient is [-] year old [-]male who presents to the [facility] emergency department with a history of rectal pain that began this afternoon. His last BM was on Sunday. He took magnesium citrate without relief. He reports that normally for constipation he takes an herbal laxative daily. He takes tylenol with codeine twice a day related to back pain. The patient reports that he last had a fecal impaction 2 years ago for the first time. He denies having any blood in his stool or black or tarry stools. He is chronically anticoagulated on Xarelto. The patient was recently hospitalized related to syncope. He completed a course of antibiotic and has been placed on home O2 for suspected pulmonary fibrosis and hypoxemia on room air. He reports that he had an elevated heart enzyme during his hospitalization and did undergo cardiac catheterization which showed no new evidence of blockages. On review of systems, the patient denies any recent fevers, cough, congestion, neck pain, chest pain, worsening shortness of breath, abdominal pain, vomiting, diarrhea, or neurologic symptoms. The patient does report a sensation of needing to urinate, however he has not been able to urinate for the last 2 hours. He reports that prior to this he was urinating without difficulty. He denies having any urinary frequency or urgency. He denies having any dysuria. PFSH Past Medical History Narrative Medical The patient's past medical history is significant for hypertension, atrial fibrillation, new diagnosis of pulmonary fibrosis, history of cerebrovascular accident, coronary artery disease, diabetes mellitus, hyperlipidemia, acid reflux, history of recent syncopal event, new diagnosis of moderate to severe LV dysfunction with an ejection fraction of 20-25%. Hx Anticoagulant Therapy: Yes (XARELTO) Cardiovascular Problems: Yes Cerebrovascular Accident: Yes (2010) Diabetes: Yes Patient Takes Glucophage: Yes Diminished Hearing: No Respiratory: Yes Tetanus Vaccination: < 5 Years Influenza Vaccination: No Past Surgical History Narrative Surgical The Patient's past surgical history is significant for carotid artery surgery right, cabg 3 vessels bypassed and at the same time and aortic valve replacement with bovine valve was done. Coronary Artery Bypass Graft: Yes Tonsillectomy: Yes Valve Replacement: Yes (2001) Social History Alcohol Use: No Tobacco Use: No (remote history, no longer smokes) Substance Use: No Allergies-Medications (Allergen,Severity, Reaction): Coded Allergies: No Known Allergies (Unverified , 07/31/16) Reported Meds & Prescriptions Reported Meds & Active Scripts Active Coreg (Carvedilol) 3.125 Mg Tab 3.125 Mg PO Q12HR Furosemide 40 Mg Tab 40 Mg PO DAILY Oxygen (O2) Device 2 Liter RAVI.CANULA CONTINUOUS Oxygen Concentrator Portable Gaseous 2 L/min via Nasal Canula Continuous For 99 months Reported Tamsulosin (Tamsulosin HCl) 0.4 Mg Cap 0.4 Mg PO HS Lisinopril 5 Mg Tab 5 Mg PO DAILY Gabapentin 300 Mg Cap 300 Mg PO HS Lantus Inj (Insulin Glargine) 1,000 Unit/10 Ml Vial 25 Units SQ HS Omeprazole 20 Mg Tab 20 Mg PO DAILY Xarelto (Rivaroxaban) 20 Mg Tab 20 Mg PO DAILY Atorvastatin (Atorvastatin Calcium) 40 Mg Tab 40 Mg PO HS Humalog Inj (Insulin Human Lispro) 1,000 Unit/10 Ml Vial 5-8 Units SQ TIDAC Max dose at bedtime:( )units; sugars < 70,(0)units; sugars 150-199,(2)units; sugars 200-249,(4)units; sugars 250-299,(7)units; sugars 300-349,(10)units; sugars more than 349,(12)units. Metformin (Metformin HCl) 1,000 Mg Tab 1,000 Mg PO BIDPC With meals Review of Systems Except as stated in HPI: all other systems reviewed are Neg General / Constitutional: No: Fever Eyes: No: Visual changes HENT: No: Headaches Cardiovascular: Positive: Dyspnea on exertion (chronic and no worse), No: Chest Pain or Discomfort Respiratory: Positive: Shortness of Breath (chronic and no worse since discharge) Gastrointestinal: Positive: Constipation, Changes in Bowel Habits, Other ( rectal pain), No: Nausea, Vomiting, Diarrhea, Abdominal Pain, Hematemesis, Hematochezia Genitourinary: Positive: Urgency (for last 2 hours), No: Frequency, Dysuria Musculoskeletal: No: Pain Skin: No Rash Neurologic: No: Weakness Psychiatric: No: Depression Endocrine: No: Polydipsia Hematologic/Lymphatic: No: Easy Bruising Physical Exam Narrative General: The patient is a well-developed well-nourished male, uncomfortable appearing on examination reporting rectal pain. Head and Neck exam: Head is normocephalic atraumatic. Eyes: EOMI, pupils are equal round and reactive to light. Nose: Midline septum with pink mucous membranes Mouth: Dentition unremarkable. Moist mucus membranes. Posterior oropharynx is not erythematous. No tonsillar hypertrophy. Uvula midline. Airway patent. Neck: No palpable lymphadenopathy. No nuchal rigidity. No thyromegaly. Cardiovascular: Regular rate and rhythm without murmurs, gallops, or rubs. No pulse deficit to the extremities and simultaneous auscultation and palpation of his radial artery. Lungs: Clear to auscultation bilaterally. No wheezes, rhonchi, or rales. Abdomen: Soft, without tenderness to palpation in all 4 quadrants of the abdomen. No guarding, rebound, or rigidity. Negative Woody sign. No tenderness on palpation of McBurney's point. Normal bowel sounds are audible. Extremities: No clubbing or cyanosis. The patient has trace to 1+ pitting edema bilateral lower extremities. 2+ pulses in all 4 extremities. No calf tenderness on palpation. Back: No costovertebral angle tenderness to palpation. Neurologic Exam: Grossly nonfocal. Skin Exam: No rash noted. Intact skin that is warm and dry. RECTAL EXAM: No masses, however the patient has tenderness on palpation on rectal exam with a fecal impaction palpated. A significant amount of stool was removed by me. The patient reported discomfort during the procedure. The patient had a scant amount of blood noted on rectal exam during the procedure, however no blood in the stool itself. The stool is a mid brown in color. Data Data Last Documented VS Vital Signs Date Time Temp Pulse Resp B/P Pulse Ox O2 Delivery O2 Flow Rate FiO2 07/31/16 05:33 20 95 Nasal Cannula 2 07/31/16 01:41 97 07/31/16 00:27 97.8 152/72 Orders Urinalysis - C+S If Indicated (07/31/16 01:50) Complete Blood Count With Diff (07/31/16 03:15) Comprehensive Metabolic Panel (07/31/16 03:15) Prothrombin Time / Inr (Pt) (07/31/16 03:15) Act Partial Throm Time (Ptt) (07/31/16 03:15) Lipase (07/31/16 03:15) Abdomen, Flat & Upright (07/31/16 03:15) Iv Access Insert/Monitor (07/31/16 03:15) Ecg Monitoring (07/31/16 03:15) Oximetry (07/31/16 03:15) Bladder Scan PRN (07/31/16 03:15) Fleets Enema (Adult) (Fleets Enema (Adul (07/31/16 03:30) Labs Laboratory Tests Test 07/31/16 07/31/16 02:45 04:50 White Blood Count 7.0 TH/MM3 Red Blood Count 4.53 MIL/MM3 Hemoglobin 10.6 GM/DL Hematocrit 34.1 % Mean Corpuscular Volume 75.2 FL Mean Corpuscular Hemoglobin 23.3 PG Mean Corpuscular Hemoglobin 31.0 % Concent Red Cell Distribution Width 19.4 % Platelet Count 216 TH/MM3 Mean Platelet Volume 9.0 FL Neutrophils (%) (Auto) 78.5 % Lymphocytes (%) (Auto) 9.5 % Monocytes (%) (Auto) 8.3 % Eosinophils (%) (Auto) 3.0 % Basophils (%) (Auto) 0.7 % Neutrophils # (Auto) 5.5 TH/MM3 Lymphocytes # (Auto) 0.7 TH/MM3 Monocytes # (Auto) 0.6 TH/MM3 Eosinophils # (Auto) 0.2 TH/MM3 Basophils # (Auto) 0.1 TH/MM3 CBC Comment DIFF FINAL Differential Comment Prothrombin Time 19.4 SEC Prothromb Time International 1.7 RATIO Ratio Activated Partial 36.4 SEC Thromboplast Time Sodium Level 140 MEQ/L Potassium Level 4.6 MEQ/L Chloride Level 101 MEQ/L Carbon Dioxide Level 31.3 MEQ/L Anion Gap 8 MEQ/L Blood Urea Nitrogen 58 MG/DL Creatinine 1.61 MG/DL Estimat Glomerular Filtration 43 ML/MIN Rate Random Glucose 201 MG/DL Calcium Level 8.9 MG/DL Total Bilirubin 0.5 MG/DL Aspartate Amino Transf 25 U/L (AST/SGOT) Alanine Aminotransferase 22 U/L (ALT/SGPT) Alkaline Phosphatase 76 U/L Total Protein 6.9 GM/DL Albumin 3.4 GM/DL Lipase 135 U/L Urine Color YELLOW Urine Turbidity CLEAR Urine pH 5.5 Urine Specific [place] 1.019 Urine Protein 30 mg/dL Urine Glucose (UA) NEG mg/dL Urine Ketones NEG mg/dL Urine Occult Blood NEG Urine Nitrite NEG Urine Bilirubin NEG Urine Urobilinogen LESS THAN 2.0 MG/DL Urine Leukocyte Esterase NEG Urine RBC 2 /hpf Urine WBC LESS THAN 1 /hpf Urine Squamous Epithelial <1 /hpf Cells Urine Bacteria OCC /hpf Urine Hyaline Casts 5 /lpf Urine Mucus FEW /lpf Microscopic Urinalysis Comment CULT NOT INDICATED MDM Medical Decision Making Medical Screen Exam Complete: Yes Emergency Medical Condition: Yes Medical Record Reviewed: Yes Differential Diagnosis Fecal impaction, versus bowel instruction, versus urinary retention, versus Narrative Course During the course of the patients emergency department visit, the patients history, examination, and differential diagnosis were reviewed with the patient. The patient had [-] IV access obtained and blood work sent for analysis. The patient was initially provided an enema and a bedside commode was placed at the bedside. The patient was able to move his bowels and large amount reported feeling improved. A bladder scan was done regarding the patient's difficulty urinating. The patient had 400 cc noted. A Thomas catheter was placed to gravity. The patient had 800 cc of urine out. The patients laboratory studies were reviewed and remarkable for a white count of 7, hemoglobin 10.6, platelets 216, neutrophils 78.5, monocytes 8.3. CMP is remarkable for BUN of 58, creatinine 1.61, glucose 201, lipase 135. His BUN and creatinine is increased compared to previously at 29 and 0.97 respectively, however the patient has been on diuretics. The urinary retention may also be contributing. I offered the patient admission for continued evaluation and treatment, however the patient reports feeling greatly improved. The patient will be continued with a Thomas catheter to gravity to leg bag. The patient is instructed to follow-up with the urologist within the next 2 days. The patient is instructed to have a repeat basic metabolic profile done in 2 days on July. The patient was agreeable with this plan. PT 19.4, INR 1.7, PTT 36.4, urinalysis is unremarkable. Radiology studies were reviewed and remarkable for a moderate amount of stool in the right and transverse colon without dilated loops of small bowel. The patient is resting comfortably and feels better, is alert and in no distress. The patients results and examination findings were discussed with the patient. The repeat examination is unremarkable and benign. The history, exam, diagnostic testing, and current condition do not suggest any significant pathology to warrant further testing, continued ED treatment, admission, or surgical evaluation at this point. The vital signs have been stable. The patient does not have uncontrollable pain, intractable vomiting, or other significant symptoms. The patient's condition is stable and appropriate for discharge. The patient will pursue further outpatient evaluation with a primary care physician or other designated or consulting physician as indicated in the discharge instructions. The patient expressed understanding and was agreeable with this plan. Diagnosis Primary Impression: Constipation Qualified Code: K59.00 - Constipation, unspecified constipation type Additional Impressions: Urinary retention Fecal impaction in rectum Referrals: August Moya MD 2 days Primary Care Physician 1 day Urologist 2 days Patient Instructions: Constipation (ED), Fecal Impaction (ED), General Instructions, Urinary Retention in Men (ED) Additional Instructions: The patient is instructed to wear compression stockings. The patient is instructed to follow-up with his primary care physician regarding his elevated BUN and creatinine and the urologist regarding his urinary retention as a catheter has been placed. Med/Other Pt SpecificInfo: No Change to Meds Disposition: 01 DISCHARGE HOME Condition: Stable Chante Lazo MD Jul 31, 2016 01:58
[2016-07-31] MEDS ORDERED: LISI-519 PO (02:25)
[2016-07-31] MEDS ORDERED: TAMS0.4C4 PO (02:25)
[2016-07-31] MEDS ORDERED: SOD PHOSPHATE/SOD BIPHOSPHATE (ADULT) ENEMA 133ML RECTAL ONE (03:30)
[2016-07-31 03:37] LABS: AUTOMATED NEUTROPHIL # 5.5 TH/MM3 (1.8-7.7); BASOPHIL # 0.1 TH/MM3 (0-0.2); BASOPHIL % 0.7 % (0.0-2.0); EOSINOPHIL # 0.2 TH/MM3 (0-0.4); HEMATOCRIT 34.1 % (39.0-51.0); HEMO FLAGS DIFF FINAL; LYMPH % 9.5 % (9.0-44.0); LYMPHOCYTE # 0.7 TH/MM3 (1.0-4.8); MEAN CELL VOLUME 75.2 FL (80.0-100.0); MEAN CORPUSCULAR HEMOGLOBIN 23.3 PG (27.0-34.0); MONO % 8.3 % (0.0-8.0); NEUT % 78.5 % (16.0-70.0); PLATELET COUNT 216 TH/MM3 (150-450); RED BLOOD COUNT 4.53 MIL/MM3 (4.50-5.90); RED CELL DISTRIBUTION WIDTH 19.4 % (11.6-17.2)
[2016-07-31 03:50] LABS: ALT (GPT) 22 U/L (12-78); ANION GAP 8 MEQ/L (5-15); AST (GOT) 25 U/L (15-37); BICARBONATE 31.3 MEQ/L (21.0-32.0); BLOOD UREA NITROGEN 58 MG/DL (7-18); CHLORIDE 101 MEQ/L (98-107); GLOMERULAR FILTRATION RATE 43 ML/MIN (>89); POTASSIUM 4.6 MEQ/L (3.5-5.1); SODIUM (NA) 140 MEQ/L (136-145)
[2016-07-31 03:52] LABS: ALKALINE PHOSPHATASE 76 U/L (45-117); APTT (PATIENT) 36.4 SEC (24.3-30.1); INTERNATIONAL NORMALIZED RATIO 1.7 RATIO; PROTHROMBIN TIME - PATIENT 19.4 SEC (9.8-11.6); TOTAL BILIRUBIN ADULT 0.5 MG/DL (0.2-1.0)
--- NOTE | 2016-07-31 04:46 | RADRPT ---
EXAM DATE/TIME: 07/31/2016 03:31 [facility] COMPARISON: CHEST SINGLE AP, July 12, 2016, 14:52. INDICATIONS : Patient states to be constipated for 3 days. MEDICAL HISTORY : None. SURGICAL HISTORY : CABG. ENCOUNTER: Initial ACUITY: 3 days PAIN SCORE: 0/10 LOCATION: Bilateral abdomen FINDINGS: Moderate amount of stool in the right and transverse colon. Gas is seen in multiple loops of nondist ended small bowel which measure up to 2.2 cm in width. Degenerative changes in the lumbar spine. De formity of left femoral head and neck. Prominent interstitial markings in the lower lungs, left wors e than right. Evidence of prior sternotomy and cardiac valve replacement. CONCLUSION: Moderate amount of stool in the right and transverse colon without dilated loops of small bowel. Colt Richter MD on July 31, 2016 at 4:43 Board Certified Radiologist. This report was verified electronically.
[2016-07-31 05:33] VITALS: RESP 20; O2SAT 95
[2016-07-31 05:45] LABS: BACTERIA, URINE OCC /hpf; BLOOD, URINE NEG (NEG); COMMENT (UR) CULT NOT INDICATED; CULTURE IF INDICATED CULT NOT INDICATED; GLUCOSE,URINE NEG (NEG); HYALINE CAST, URINE 5 /lpf (RARE); KETONE, URINE NEG (NEG); MUCUS URINE FEW /lpf (OCC); NITRITE,URINE NEG (NEG); PH, URINE 5.5 (5.0-8.5); SQUAMOUS EPITHELIAL CELL URINE <1 /hpf (0-5); URINE COLOR YELLOW (YELLW/STRAW)
[2016-07-31 06:53] VITALS: BP 105/57
== END 2016-07-31 06:56 | disposition home or self-care (01) ==
LOC: NEPC 00:24
DX: K59.00 Constipation, unspecified (principal); R33.9 Retention of urine, unspecified; K56.41 Fecal impaction; I10 Essential (primary) hypertension; I48.91 Unspecified atrial fibrillation; E11.9 Type 2 diabetes mellitus without complications; E78.5 Hyperlipidemia, unspecified; Z79.4 Long term (current) use of insulin; Z79.01 Long term (current) use of anticoagulants; Z87.09 Personal history of other diseases of the respiratory system; Z86.79 Personal history of other diseases of the circulatory system; Z87.19 Personal history of other diseases of the digestive system
CPT/HCPCS: 74020; 80053; 81001; 83690; 85025; 85610; 85730; 99284

== ENCOUNTER 2016-08-07 19:56 | Inpatient (IN) | payer OTHER, MEDICARE ==
[~2016-08-07] VITALS: Ht 188 cm; Wt 105.8 kg
[~2016-08-07 19:56] MED LIST changes: -ASPI81TA11 PO; -LEVA750T9 PO; +LISI-519 PO; -SYSTSOL11 EACH EYE; +TAMS0.4C4 PO; -TYLETAB34 PO; -[UNRECOGNIZED DRUG - OTHER] EACH EYE
[2016-08-07 20:01] VITALS: BP 112/65; PULSE 104; RESP 20; TEMP 97.5; O2SAT 90
[2016-08-07 20:09] VITALS: BP 119/64; PULSE 87; TEMP 98.3
--- NOTE | 2016-08-07 20:13 | PD ---
HPI Chief Complaint: shortness of breath Time Seen by Provider: 20:05 Travel History International Travel<30 days: No Contact w/Intl Traveler<30days: No Traveled to known affect area: No History of Present Illness HPI 70-year-old male with history of hypertension, A. fib, CVA, diabetes, hyperlipidemia, GERD, CAD, CABG CHF, pulmonary fibrosis, here with his for evaluation of shortness of breath and bilateral lower extremity edema. The patient [facility] today and sent here for further treatment and evaluation. He has had about an 8 pound weight gain over the last couple of weeks. He was admitted earlier this month and had several studies/tests performed including a cardiac catheter which showed that he has 2 out of 3 patent grafts and severe left ventricular dysfunction with an EF between 20 and 25%. He also had a CT pulmonary angiogram performed which shows severe pulmonary fibrosis, no PE. The patient is on Xarelto, and states he has been on it ever since a carotid endarterectomy. He is denying chest pain. No fevers or recent illness. He is short of breath which is worse with exertion, better with rest. He reports that he has been out of his Xarelto the last 2 days, and took one his 's Pradaxa pills today. PFSH Past Medical History Hx Anticoagulant Therapy: Yes (XARELTO) Cardiovascular Problems: Yes Cerebrovascular Accident: Yes Diabetes: Yes Diminished Hearing: No Respiratory: Yes Past Surgical History Coronary Artery Bypass Graft: Yes Tonsillectomy: Yes Valve Replacement: Yes (2001) Social History Alcohol Use: No Tobacco Use: No (remote history, no longer smokes) Substance Use: No Allergies-Medications (Allergen,Severity, Reaction): Coded Allergies: No Known Allergies (Unverified , 07/31/16) Reported Meds & Prescriptions Reported Meds & Active Scripts Active Coreg (Carvedilol) 3.125 Mg Tab 3.125 Mg PO Q12HR Furosemide 40 Mg Tab 40 Mg PO DAILY Oxygen (O2) Device 2 Liter RAVI.CANULA CONTINUOUS Oxygen Concentrator Portable Gaseous 2 L/min via Nasal Canula Continuous For 99 months Reported Lantus Inj (Insulin Glargine) 1,000 Unit/10 Ml Vial 22 Units SQ HS Tamsulosin (Tamsulosin HCl) 0.4 Mg Cap 0.4 Mg PO HS Gabapentin 300 Mg Cap 300 Mg PO HS Omeprazole 20 Mg Tab 20 Mg PO DAILY Xarelto (Rivaroxaban) 20 Mg Tab 20 Mg PO DAILY Atorvastatin (Atorvastatin Calcium) 40 Mg Tab 40 Mg PO HS Humalog Inj (Insulin Human Lispro) 1,000 Unit/10 Ml Vial 5-8 Units SQ TIDAC Max dose at bedtime:( )units; sugars < 70,(0)units; sugars 150-199,(2)units; sugars 200-249,(4)units; sugars 250-299,(7)units; sugars 300-349,(10)units; sugars more than 349,(12)units. Metformin (Metformin HCl) 1,000 Mg Tab 1,000 Mg PO BIDPC With meals Review of Systems Except as stated in HPI: all other systems reviewed are Neg Physical Exam Narrative GENERAL: Well-developed, well-nourished, awake, alert, moderate respiratory distress with accessory muscle use, speaking full sentences. SKIN: Focused skin assessment warm/dry. HEAD: Atraumatic. Normocephalic. EYES: Pupils equal and round. No scleral icterus. No injection or drainage. ENT: Mucous membranes pink and moist. NECK: Trachea midline. No JVD. CARDIOVASCULAR: Regular rate and rhythm. No murmur appreciated. RESPIRATORY: Moderate respiratory distress. Accessory muscle use. Bibasilar rales. Speaking full sentences. No wheezes or rhonchi. Equal breath sounds bilaterally. GASTROINTESTINAL: Abdomen soft, non-tender, nondistended. MUSCULOSKELETAL: No obvious deformities. No clubbing. No cyanosis. Moderate bilateral lower extremity edema from foot to knee. NEUROLOGICAL: Awake and alert. No obvious cranial nerve deficits. Motor grossly within normal limits. Normal speech. PSYCHIATRIC: Appropriate mood and affect; insight and judgment normal. Data Data Last Documented VS Vital Signs Date Time Temp Pulse Resp B/P Pulse Ox O2 Delivery O2 Flow Rate FiO2 08/07/16 20:15 91 Nasal Cannula 2 08/07/16 20:15 20 08/07/16 20:09 98.3 87 119/64 Orders Complete Blood Count With Diff (08/07/16 20:09) Comprehensive Metabolic Panel (08/07/16 20:09) B-Type Natriuretic Peptide (08/07/16 20:09) Act Partial Throm Time (Ptt) (08/07/16 20:09) Prothrombin Time / Inr (Pt) (08/07/16 20:09) Magnesium (Mg) (08/07/16 20:09) Ckmb (Isoenzyme) Profile (08/07/16 20:09) Troponin I (08/07/16 20:09) Iv Access Insert/Monitor (08/07/16 20:09) Electrocardiogram (08/07/16 20:09) Ecg Monitoring (08/07/16 20:09) Oximetry (08/07/16 20:09) Oxygen Administration (08/07/16 20:09) Chest, Single Ap (08/07/16 20:09) Sodium Chloride 0.9% Flush (Ns Flush) (08/07/16 20:15) Furosemide Inj (Lasix Inj) (08/07/16 20:15) CKMB (08/07/16 20:20) CKMB% (08/07/16 20:20) Labs Laboratory Tests Test 08/07/16 20:20 White Blood Count 7.6 TH/MM3 Red Blood Count 4.46 MIL/MM3 Hemoglobin 10.3 GM/DL Hematocrit 33.7 % Mean Corpuscular Volume 75.7 FL Mean Corpuscular Hemoglobin 23.2 PG Mean Corpuscular Hemoglobin 30.6 % Concent Red Cell Distribution Width 20.4 % Platelet Count 201 TH/MM3 Mean Platelet Volume 8.6 FL Neutrophils (%) (Auto) 71.9 % Lymphocytes (%) (Auto) 12.6 % Monocytes (%) (Auto) 11.1 % Eosinophils (%) (Auto) 3.4 % Basophils (%) (Auto) 1.0 % Neutrophils # (Auto) 5.5 TH/MM3 Lymphocytes # (Auto) 1.0 TH/MM3 Monocytes # (Auto) 0.9 TH/MM3 Eosinophils # (Auto) 0.3 TH/MM3 Basophils # (Auto) 0.1 TH/MM3 CBC Comment DIFF FINAL Differential Comment Prothrombin Time 13.5 SEC Prothromb Time International 1.2 RATIO Ratio Activated Partial 31.3 SEC Thromboplast Time Sodium Level 138 MEQ/L Potassium Level 3.9 MEQ/L Chloride Level 101 MEQ/L Carbon Dioxide Level 28.5 MEQ/L Anion Gap 9 MEQ/L Blood Urea Nitrogen 39 MG/DL Creatinine 1.19 MG/DL Estimat Glomerular Filtration 60 ML/MIN Rate Random Glucose 104 MG/DL Calcium Level 8.5 MG/DL Magnesium Level 1.6 MG/DL Total Bilirubin 0.7 MG/DL Aspartate Amino Transf 29 U/L (AST/SGOT) Alanine Aminotransferase 24 U/L (ALT/SGPT) Alkaline Phosphatase 81 U/L Total Creatine Kinase 105 U/L Creatine Kinase MB 2.9 NG/ML Troponin I 0.03 NG/ML B-Type Natriuretic Peptide 536 PG/ML Total Protein 6.3 GM/DL Albumin 3.2 GM/DL MDM Medical Decision Making Medical Screen Exam Complete: Yes Emergency Medical Condition: Yes Medical Record Reviewed: Yes Interpretation(s) EKG: A. fib, rate 83, normal axis, 1 PVC, Q waves in anterior leads, no acute ischemic abnormality. Differential Diagnosis CHF/pulmonary edema, pulmonary fibrosis, PE, pneumothorax, ACS, pneumonia Narrative Course Initial vital signs show heart rate 104, blood pressure 112/65, pulse ox 90% on room air, oral temp of 97.5F. CBC shows WBC 7.6, hemoglobin 10.3, hematocrit 33.7, MCV 75.7, platelets 201. H &H is around the patient's baseline. CMP is remarkable for BUN 39, creatinine 1.19, GFR 60 which is around his baseline. Troponin is 0.03. BNP is 536. Chest x-ray: Chronic infiltrates in both lungs, similar to prior, no acute findings. Patient had recent cardiac catheterization last month that showed that he has an EF between 20 and 25%. He was given 40 mg of IV Lasix and states that he is compliant with taking 80 mg oral Lasix daily at home. He does have moderate bilateral lower extremity edema. Given symptoms of CHF/fluid overload as well as hypoxia and dyspnea on exertion, patient be admitted for further treatment and evaluation. Case discussed with hospitalist Dr. Tabares who will admit the patient to her service. Diagnosis Primary Impression: CHF exacerbation Qualified Code: I50.9 - Acute on chronic congestive heart failure, unspecified congestive heart failure type Additional Impressions: Dyspnea Qualified Code: R06.09 - Dyspnea on exertion Hypoxia Admitting Information Admitting Physician Requests: Admit Pablo Florian MD Aug 07, 2016 20:13
[2016-08-07 20:15] VITALS: RESP 20; O2SAT 93
[2016-08-07] MEDS ORDERED: SODIUM CHLORIDE 0.9% FLUSH 10 ML FLUSH IVF PRN (20:15)
[2016-08-07] MEDS ORDERED: FUROSEMIDE 40 MG/4 ML VIAL IVP ONE (20:15)
--- NOTE | 2016-08-07 20:29 | RADRPT ---
EXAM DATE/TIME: 08/07/2016 20:21 [facility] COMPARISON: MYOCARDIAL PERF PHARM SPECT, GATED W/EF, July 15, 2016, 9:07. CT PULMONARY ANGIOGRAM, July 12, 2016, 15:48. CHEST SINGLE AP, July 12, 2016, 14:52. INDICATIONS : Short of breath MEDICAL HISTORY : Cardiovascular disease. Cerebrovascular disease. Diabetes mellitus type II. A-fib SURGICAL HISTORY : CABG. ENCOUNTER: Initial ACUITY: 1 day PAIN SCORE: 0/10 LOCATION: Bilateral chest FINDINGS: Patchy areas of infiltrate in the periphery of both lungs is similar appearance to prior examination 07/12/16. The heart is enlarged, stable from prior. Prior CT pulmonary angiogram had demonstrated pul monary fibrosis. Evidence of prior median sternotomy. Both hemidiaphragms well delineated. CONCLUSION: Chronic infiltrates in both lungs, similar to prior. No acute findings. Colt Richter MD on August 07, 2016 at 20:24 Board Certified Radiologist. This report was verified electronically.
[2016-08-07] MEDS ORDERED: LANTUS2P SQ (20:30)
[2016-08-07 21:01] LABS: AUTOMATED NEUTROPHIL # 5.5 TH/MM3 (1.8-7.7); BASOPHIL # 0.1 TH/MM3 (0-0.2); EOSINOPHIL # 0.3 TH/MM3 (0-0.4); EOSINOPHIL % 3.4 % (0.0-4.0); HEMATOCRIT 33.7 % (39.0-51.0); HEMO FLAGS DIFF FINAL; LYMPH % 12.6 % (9.0-44.0); MEAN CELL VOLUME 75.7 FL (80.0-100.0); MEAN CORPUSCULAR HEMOGLOBIN 23.2 PG (27.0-34.0); MEAN CORPUSCULAR HGB CONC 30.6 % (32.0-36.0); MONO % 11.1 % (0.0-8.0); NEUT % 71.9 % (16.0-70.0); PLATELET COUNT 201 TH/MM3 (150-450); RED BLOOD COUNT 4.46 MIL/MM3 (4.50-5.90); RED CELL DISTRIBUTION WIDTH 20.4 % (11.6-17.2); WHITE BLOOD COUNT 7.6 TH/MM3 (4.0-11.0)
[2016-08-07 21:09] LABS: APTT (PATIENT) 31.3 SEC (24.3-30.1); INTERNATIONAL NORMALIZED RATIO 1.2 RATIO; PROTHROMBIN TIME - PATIENT 13.5 SEC (9.8-11.6)
[2016-08-07 21:26] LABS: ANION GAP 9 MEQ/L (5-15); AST (GOT) 29 U/L (15-37); BICARBONATE 28.5 MEQ/L (21.0-32.0); BLOOD UREA NITROGEN 39 MG/DL (7-18); CHLORIDE 101 MEQ/L (98-107); GLOMERULAR FILTRATION RATE 60 ML/MIN (>89); MAGNESIUM 1.6 MG/DL (1.5-2.5); POTASSIUM 3.9 MEQ/L (3.5-5.1); SODIUM (NA) 138 MEQ/L (136-145)
[2016-08-07 21:27] LABS: ALT (GPT) 24 U/L (12-78)
[2016-08-07 21:31] LABS: ALKALINE PHOSPHATASE 81 U/L (45-117); CREATINE KINASE 105 U/L (39-308); TOTAL BILIRUBIN ADULT 0.7 MG/DL (0.2-1.0)
[2016-08-07 21:43] LABS: CKMB 2.9 NG/ML (0.5-3.6)
--- NOTE | 2016-08-07 22:05 | HHI.HP ---
HPI Service [facility] ([place], [place])ists Primary Care Physician [facility] Admission Diagnosis CHF exacerbation, dyspnea, hypoxia Diagnoses: (1) CHF (congestive heart failure) Diagnosis: Principal (2) A-fib Diagnosis: Principal (3) HTN (hypertension) Diagnosis: Principal (4) DM (diabetes mellitus) Diagnosis: Principal Travel History International Travel<30 Days: No Contact w/Intl Traveler <30 Da: No Traveled to Known Affected Are: No History of Present Illness This is a 70-year-old male with a PMH of HTN, A. fib on Xarelto, CHF (Echo w/ EF 20-25%), CAD s/p CABG, Pulmonary Fibrosis, Hyperlipidemia, GERD, h/o CVA and DM who was referred to the ER by the [facility] for c/o SOB and progressive lower extremity edema. Recent admit 07/13-07/20/16 for Syncope/CHF w/ Abnormal Stress, s/p Cath by Dr. Carcamo 07/17/16 w/ 2/3 patent graft stents and mod to severe LV dysfunction. Returns now with ongoing OB and lower extremity edema as above. On arrival, BP 112/65, HR 104, O2 sat 90% on RA, Afebrile. CBC at baseline. Chemistry essentially unremarkable. Troponin 0.03. BNP 536. INR 1.2. CXR with chronic infiltrates bilaterally similar to previous studies, no acute findings. Review of Systems Except as stated in HPI: all other systems reviewed are Neg ROS: 14 point review of systems otherwise negative. Past Family Social History Past Medical History PMH: HTN, A. fib on Xarelto, CHF (Echo 07/13/16 w/ EF 20-25%), CAD s/p CABG, Pulmonary Fibrosis, Hyperlipidemia, GERD, h/o CVA and DM Past Surgical History PAST SURGICAL HISTORY: CABG, Tonsillectomy, Valve Replacement 2001. Allergies: Coded Allergies: No Known Allergies (Unverified , 07/31/16) Family History PAST FAMILY HISTORY: Reviewed. No h/o DM or CAD Social History PAST SOCIAL HISTORY: Negative for alcohol, tobacco or drugs. Physical Exam Vital Signs Vital Signs Date Time Temp Pulse Resp B/P Pulse Ox O2 Delivery O2 Flow Rate FiO2 08/07/16 20:15 91 Nasal Cannula 2 08/07/16 20:15 93 Nasal Cannula 2 08/07/16 20:15 20 93 Nasal Cannula 2 08/07/16 20:09 98.3 87 119/64 08/07/16 20:01 97.5 104 20 112/65 90 Physical Exam PE: GENERAL: Elderly male in no acute distress. HEENT: PERRLA, EOMI. No scleral icterus or conjunctival pallor. No lid lag or facial droop. CARDIOVASCULAR: Regular rate and rhythm. No obvious murmurs to auscultation. No chest tenderness to palpation. RESPIRATORY: No obvious rhonchi or wheezing. Clear to auscultation. Breath sounds equal bilaterally. GASTROINTESTINAL: Abdomen soft, non-tender, nondistended. BS normal. MUSCULOSKELETAL: Extremities without clubbing, cyanosis. 2-3+ edema. No obvious deformities. NEUROLOGICAL: Awake, alert and oriented x4. No focal neurologic deficits. Moving both upper and lower extremities spontaneously. Laboratory Laboratory Tests Test 08/07/16 20:20 White Blood Count 7.6 Red Blood Count 4.46 Hemoglobin 10.3 Hematocrit 33.7 Mean Corpuscular Volume 75.7 Mean Corpuscular Hemoglobin 23.2 Mean Corpuscular Hemoglobin 30.6 Concent Red Cell Distribution Width 20.4 Platelet Count 201 Mean Platelet Volume 8.6 Neutrophils (%) (Auto) 71.9 Lymphocytes (%) (Auto) 12.6 Monocytes (%) (Auto) 11.1 Eosinophils (%) (Auto) 3.4 Basophils (%) (Auto) 1.0 Neutrophils # (Auto) 5.5 Lymphocytes # (Auto) 1.0 Monocytes # (Auto) 0.9 Eosinophils # (Auto) 0.3 Basophils # (Auto) 0.1 CBC Comment DIFF FINAL Differential Comment Prothrombin Time 13.5 Prothromb Time International 1.2 Ratio Activated Partial 31.3 Thromboplast Time Sodium Level 138 Potassium Level 3.9 Chloride Level 101 Carbon Dioxide Level 28.5 Anion Gap 9 Blood Urea Nitrogen 39 Creatinine 1.19 Estimat Glomerular Filtration 60 Rate Random Glucose 104 Calcium Level 8.5 Magnesium Level 1.6 Total Bilirubin 0.7 Aspartate Amino Transf 29 (AST/SGOT) Alanine Aminotransferase 24 (ALT/SGPT) Alkaline Phosphatase 81 Total Creatine Kinase 105 Creatine Kinase MB 2.9 Troponin I 0.03 B-Type Natriuretic Peptide 536 Total Protein 6.3 Albumin 3.2 Result Diagram: 08/07/16201908/07/162019 Assessment and Plan Problem List: (1) CHF (congestive heart failure) ICD Code: I50.9 Status: Acute (2) A-fib ICD Code: I48.91 Status: Acute (3) HTN (hypertension) ICD Code: I10 Status: Acute (4) DM (diabetes mellitus) ICD Code: E11.9 Status: Acute Assessment and Plan A/P: 1. CHF: Acute on Chronic. Echo 07/13/16 w/ EF 20-25%, BNP 536, +lower extremity edema, CXR w/ no acute findings, images reviewed by me. S/p Lasix 40mg IV x1 in ER, will continue w/ diuresis. Monitor I/O. 2. A-fib: Chronic. On Xarelto. Will resume home medications. 3. HTN: BP controlled, resume home Coreg. Monitor BP. 4. DM: Sliding scale w/ Accu-check. Hold Metformin for now for possible cardiac intervention. 5. DVT Prophylaxis: On Xarelto 6. Social work for d/c planning as needed. 7. Case discussed w/ ER physician at length. Fidelia Tabares MD Aug 07, 2016 22:05
[2016-08-07] MEDS ORDERED: LACTULOSE SYRUP 20 GM/30 ML CUP PO PRN (22:15)
[2016-08-07] MEDS ORDERED: MAGNESIUM HYDROXIDE SUSP 30 ML CUP PO PRN (22:15)
[2016-08-07] MEDS ORDERED: MORPHINE SULFATE 4 MG/ML INJ IV PRN (22:15)
[2016-08-07] MEDS ORDERED: ACETAMINOPHEN 325 MG TAB PO PRN (22:15)
[2016-08-07] MEDS ORDERED: ACETAMINOPHEN/HYDROcodone 325 MG/5 MG TAB PO PRN (22:15)
[2016-08-07] MEDS ORDERED: ONDANSETRON HCL 4 MG/2 ML VIAL IVP PRN (22:15)
[2016-08-07] MEDS ORDERED: BISACODYL 10 MG SUPP RECTAL PRN (22:15)
[2016-08-07] MEDS ORDERED: SODIUM CHLORIDE 0.9% FLUSH 10 ML FLUSH IV FLUSH PRN (22:15)
[2016-08-07] MEDS ORDERED: SENNOSIDES 8.6 MG TAB PO PRN (22:15)
[2016-08-07 22:33] VITALS: BP 105/74; PULSE 98; RESP 22; O2SAT 94
[2016-08-08] VITALS (12 sets, daily range): BP systolic 94–128; BP diastolic 51–64; PULSE 72–96; RESP 18–21; TEMP 97.8–98.8; O2SAT 95–100
[2016-08-08 06:00] LABS: AUTOMATED NEUTROPHIL # 4.5 TH/MM3 (1.8-7.7); BASOPHIL % 0.7 % (0.0-2.0); EOSINOPHIL # 0.3 TH/MM3 (0-0.4); EOSINOPHIL % 4.8 % (0.0-4.0); HEMO FLAGS DIFF FINAL; LYMPH % 18.5 % (9.0-44.0); LYMPHOCYTE # 1.3 TH/MM3 (1.0-4.8); MEAN CORPUSCULAR HGB CONC 30.7 % (32.0-36.0); MONO % 10.8 % (0.0-8.0); NEUT % 65.2 % (16.0-70.0); PLATELET COUNT 188 TH/MM3 (150-450); RED BLOOD COUNT 4.13 MIL/MM3 (4.50-5.90); RED CELL DISTRIBUTION WIDTH 19.9 % (11.6-17.2); WHITE BLOOD COUNT 6.8 TH/MM3 (4.0-11.0)
[2016-08-08] MEDS: PANTOPRAZOLE SOD 20 MG DELAYED RELEASE TAB PO SCH (06:24)
[2016-08-08 06:26] LABS: ALT (GPT) 21 U/L (12-78); ANION GAP 6 MEQ/L (5-15); AST (GOT) 27 U/L (15-37); BICARBONATE 32.4 MEQ/L (21.0-32.0); BLOOD UREA NITROGEN 36 MG/DL (7-18); CHLORIDE 103 MEQ/L (98-107); GLOMERULAR FILTRATION RATE 68 ML/MIN (>89); POTASSIUM 3.5 MEQ/L (3.5-5.1); SODIUM (NA) 141 MEQ/L (136-145)
[2016-08-08 06:27] LABS: ALKALINE PHOSPHATASE 71 U/L (45-117); TOTAL BILIRUBIN ADULT 0.7 MG/DL (0.2-1.0)
[2016-08-08] MEDS: RIVAROXABAN 20 MG TAB PO SCH (10:06)
[2016-08-08] MEDS: CARVEDILOL 3.125 MG TAB PO SCH ×2 (10:06→21:36)
[2016-08-08] MEDS: SODIUM CHLORIDE 0.9% FLUSH 10 ML FLUSH IV FLUSH SCH ×2 (10:06→21:36)
[2016-08-08] MEDS: DOCUSATE SODIUM 50 MG/SENNA 8.6 MG TAB PO SCH ×2 (10:06→21:00)
[2016-08-08] MEDS: FUROSEMIDE 40 MG/4 ML VIAL IV PUSH SCH ×2 (10:07→17:58)
--- NOTE | 2016-08-08 10:46 | HHI.PR ---
Subjective Remarks Follow CHF exacerbation. Patient states he is feeling much better. Denies any SOB or chest pain. Patient is originally from [place] and is here for half the year, plans to go back when his health is better. He does follow up with a director corporate security in [facility]. He does not recall getting told to limit his fluids due to his CHF, he states he does drink a lot daily and doesn't feel his Lasix is working. Objective Vitals Vital Signs Date Time Temp Pulse Resp B/P Pulse Ox O2 Delivery O2 Flow Rate FiO2 08/08/16 07:26 97.8 72 20 105/51 95 08/08/16 04:06 78 08/08/16 04:00 98.0 77 18 94/57 98 08/08/16 01:09 72 08/07/16 22:33 98 22 105/74 94 Nasal Cannula 2 08/07/16 20:15 91 Nasal Cannula 2 08/07/16 20:15 93 Nasal Cannula 2 08/07/16 20:15 20 93 Nasal Cannula 2 08/07/16 20:09 98.3 87 119/64 08/07/16 20:01 97.5 104 20 112/65 90 I/O 08/07/16 08/07/16 08/07/16 08/08/16 08/08/16 08/08/16 07:00 15:00 23:00 07:00 15:00 23:00 Output Total 1200 ml 400 ml Balance -1200 ml -400 ml Output Urine Total 1200 ml 400 ml Result Diagram: 08/08/16 0446 08/08/16 0446 Imaging Last Impressions Chest X-Ray 08/07/162008 Signed Impressions: Service Date/Time: Sunday, August 07, 2016 20:21 - CONCLUSION: Chronic infiltrates in both lungs, similar to prior. No acute findings. Colt Richter MD Objective Remarks GENERAL: Elderly male in no acute distress. HEENT: PERRLA, EOMI. No scleral icterus or conjunctival pallor. No lid lag or facial droop. CARDIOVASCULAR: Regular rate and rhythm. No obvious murmurs to auscultation. No chest tenderness to palpation. RESPIRATORY: No obvious rhonchi or wheezing. Clear to auscultation. Breath sounds equal bilaterally. No crackles GASTROINTESTINAL: Abdomen soft, non-tender, nondistended. BS normal. MUSCULOSKELETAL: Extremities without clubbing, cyanosis. +1-2 edema in BLE, much improved. No obvious deformities. NEUROLOGICAL: Awake, alert and oriented x4. No focal neurologic deficits. Moving both upper and lower extremities spontaneously. Medications and IVs Current Medications Medications (Trade) Dose Ordered Sig/Gian Route Start Time Stop Time Status Last Admin (Lasix Inj) 40 mg BID@09,18 IV PUSH 08/08/16 09:00 08/08/16 10:07 (NS Flush) 2 ml UNSCH PRN IV FLUSH 08/07/16 22:15 (NS Flush) 2 ml BID IV FLUSH 08/08/16 09:00 08/08/16 10:06 (Zofran Inj) 4 mg Q6H PRN IVP 08/07/16 22:15 (Tylenol) 650 mg Q6H PRN PO 08/07/16 22:15 ([place] 5-325 Mg) 1 tab Q4H PRN PO 08/07/16 22:15 (Morphine Inj) 2 mg Q3H PRN IV 08/07/16 22:15 (Marichuy-Colace) 1 tab BID PO 08/08/16 09:00 08/08/16 10:06 (Milk Of Magnesia Liq) 30 ml Q12H PRN PO 08/07/16 22:15 (Senokot) 17.2 mg Q12H PRN PO 08/07/16 22:15 (Dulcolax Supp) 10 mg DAILY PRN RECTAL 08/07/16 22:15 (Lactulose Liq) 30 ml DAILY PRN PO 08/07/16 22:15 (Lipitor) 40 mg HS PO 08/08/16 21:00 (Coreg) 3.125 mg Q12HR PO 08/08/16 09:00 08/08/16 10:06 (Neurontin) 300 mg HS PO 08/08/16 21:00 (Levemir Inj) 22 units HS SQ 08/08/16 21:00 (Xarelto) 20 mg DAILY PO 08/08/16 09:00 08/08/16 10:06 (Flomax) 0.4 mg HS PO 08/08/16 21:00 (Protonix) 20 mg DAILY@06 PO 08/08/16 06:00 08/08/16 06:24 Urinary Catheter: No Vascular Central Line Catheter: No A/P Problem List: (1) CHF (congestive heart failure) ICD Code: I50.9 Status: Acute (2) A-fib ICD Code: I48.91 Status: Acute (3) HTN (hypertension) ICD Code: I10 Status: Acute (4) DM (diabetes mellitus) ICD Code: E11.9 Status: Acute Assessment and Plan CHF: Acute on Chronic. Echo 07/13/16 w/ EF 20-25%, BNP 536, +lower extremity edema, CXR w/ no acute findings, shows chronic infiltrates. -Cont Lasix 40mg IV BID, may need to increase to BID PO at discharge -Monitor I/O -Case management for home health set up for continued CHF education -Walk test revealed O2 89% on exertion, will continue with diuresis and reorder walk test in AM A-fib, Chronic -Cont home Xarelto HTN, chronic, BP controlled -resume home Coreg -Monitor BP DM, chronic - Sliding scale w/ Accu-check. -Cont home Levemir DVT Prophylaxis: On Kristina Luna Aug 08, 2016 10:46
--- NOTE | 2016-08-08 10:48 | HHI.FF ---
Face to Face Verification Diagnosis: (1) Atrial fibrillation (2) CHF (congestive heart failure) (3) HTN (hypertension) (4) DM (diabetes mellitus) Home Health Nursing Order: Medical education Signs/symptoms of disease process Diabetic education CHF education Medication education-adverse effect Nursing assessment with vital signs I have seen patient Donavon Harper on 08/08/16. My clinical findings support the need for the requested home health care services because: Deconditioned w/ increased weakness Med compliance is questionable I certify that my clinical findings support that this patient is homebound because: Poor cardiac reserve Kristina Sanabria Aug 08, 2016 10:48
--- NOTE | 2016-08-08 13:18 | EKG ---
Date Performed: 08/07/2016 Time Performed: 20:11:14 PTAGE: 70 years EKG: ATRIAL FIBRILLATION WITH ABERRANT CONDUCTION OR VENTRICULAR PREMATURE COMPLEXES POSSIBLE AN TERIOR MYOCARDIAL INFARCTION ABNORMAL RHYTHM ECG PREVIOUS TRACING : 07/13/2016 03.40 Compared to prior tracing no significant change DOCTOR: Denver Martinez Interpretating Date/Time 08/08/2016 13:14:28
[2016-08-08] MEDS ORDERED: DEXTROSE 50% IN WATER 50 ML VIAL(D50) IV PUSH PRN (18:45)
[2016-08-08] MEDS ORDERED: GLUCAGON 1 MG/ML VIAL OTHER PRN (18:45)
[2016-08-08] MEDS: GABAPENTIN 300 MG CAP PO SCH (21:36)
[2016-08-08] MEDS: TAMSULOSIN HCL 0.4 MG CAP PO SCH (21:36)
[2016-08-08] MEDS: ATORVASTATIN 40 MG TAB PO SCH (21:37)
[2016-08-08] MEDS: INSULIN DETEMIR 100 UNITS/ML VIAL SQ SCH (21:38)
[2016-08-08] MEDS: LOW DOSE INSULIN NOVOLOG SUPPLEMENTAL SCALE SQ SCH (21:45)
[2016-08-09] VITALS (12 sets, daily range): BP systolic 93–120; BP diastolic 48–70; PULSE 60–87; RESP 16–20; TEMP 97.2–98.8; O2SAT 91–99
[2016-08-09] MEDS: PANTOPRAZOLE SOD 20 MG DELAYED RELEASE TAB PO SCH (06:34)
[2016-08-09] MEDS: LOW DOSE INSULIN NOVOLOG SUPPLEMENTAL SCALE SQ SCH ×4 (06:39→22:10)
--- NOTE | 2016-08-09 08:09 | HHI.PR ---
Subjective Remarks Follow-up for CHF exacerbation. The patient states he had an episode overnight where he woke up and tried to use a bedside toilet and experienced shortness of breath. He does report that his breathing and lower extremity swelling have improved since admission, but he does not yet feel 100%. He states he was able to walk a little around the unit yesterday, but was only able to go about half as far as normal before he became short of breath. Normally he is able to ambulate from his garage to his mailbox with no shortness of breath. He is on 2 L of oxygen at home. He believes he is taking 80 mg of Lasix daily. His at home assists him with ADLs. Objective Vitals Vital Signs Date Time Temp Pulse Resp B/P Pulse Ox O2 Delivery O2 Flow Rate FiO2 08/09/16 07:31 98.1 60 16 97/54 95 08/09/16 07:16 96 Nasal Cannula 2.00 08/09/16 04:45 98.8 77 16 102/58 95 08/09/16 04:01 78 08/09/16 00:01 78 08/08/16 23:36 97.9 74 21 103/55 100 08/08/16 20:11 98.8 85 18 128/64 97 08/08/16 20:00 96 08/08/16 19:45 Nasal Cannula 2.00 08/08/16 16:17 84 08/08/16 16:00 97.8 83 20 128/60 98 08/08/16 12:43 3.00 08/08/16 12:00 97.8 78 20 101/58 95 08/08/16 12:00 88 08/08/16 11:00 95 Nasal Cannula 2.00 08/08/16 08:30 75 I/O 08/08/16 08/08/16 08/08/16 08/09/16 08/09/16 08/09/16 07:00 15:00 23:00 07:00 15:00 23:00 Intake Total 960 ml 50 ml Output Total 400 ml Balance -400 ml 960 ml 50 ml Intake Oral 960 ml 50 ml Output Urine Total 400 ml # Voids 4 Result Diagram: 08/08/16 0446 08/08/16445 Imaging Last Impressions Chest X-Ray 08/07/162008 Signed Impressions: Service Date/Time: Sunday, August 07, 2016 20:21 - CONCLUSION: Chronic infiltrates in both lungs, similar to prior. No acute findings. Colt Richter MD Objective Remarks GENERAL: Well-developed well-nourished. In no acute distress. SKIN: Warm and dry. No lesions noted. HEENT: Normocephalic. Pupils equal and round. Mucous membranes pink and moist. CARDIOVASCULAR: Irregular rate and rhythm. No murmur appreciated. RESPIRATORY: No accessory muscle use. Clear to auscultation. Breath sounds equal bilaterally. No crackles. GASTROINTESTINAL: Abdomen soft, non-tender, nondistended. Bowel sounds x4. MUSCULOSKELETAL: No obvious deformities. No clubbing or cyanosis. 2+ pitting edema. NEUROLOGICAL: Awake and alert. No focal neurological deficits. Moves upper and lower extremities spontaneously. Normal speech. PSYCHIATRIC: Appropriate mood and affect; insight and judgment normal. A/P Problem List: (1) CHF (congestive heart failure) ICD Code: I50.9 Status: Acute (2) A-fib ICD Code: I48.91 Status: Acute (3) HTN (hypertension) ICD Code: I10 Status: Chronic (4) DM (diabetes mellitus) ICD Code: E11.9 Status: Chronic Assessment and Plan 70-year-old male with a PMH of HTN, A. fib on Xarelto, CHF (Echo 07/13/16 w/ EF 20 -25%), CAD s/p CABG, Pulmonary Fibrosis, Hyperlipidemia, GERD, h/o CVA and DM who presented with c/o SOB and progressive lower extremity edema. CHF: Acute on Chronic systolic. Reviewed: Echo 07/13/16 w/ EF 20-25%, BNP 536, +lower extremity edema, CXR w/ no acute findings, shows chronic infiltrates. -Change Lasix 40mg IV BID, to torsemide -Monitor I/O and daily weights -Continue ambulation with PT and/or RT -Continue supplemental O2 -Follow-up renal function, electrolytes, and BNP A-fib, Chronic -Cont home Xarelto HTN, chronic, BP controlled -Continue home Coreg -Monitor BP DM, chronic -Sliding scale w/ Accu-check. -Cont home Levemir DVT Prophylaxis: On Xarelto Discharge Planning Continue to monitor for clinical improvement. Problem Qualifiers (1) HTN (hypertension): Qualified Code: I10 - Essential hypertension Junito Pena Aug 09, 2016 08:09
[2016-08-09] MEDS: SODIUM CHLORIDE 0.9% FLUSH 10 ML FLUSH IV FLUSH SCH ×2 (10:55→21:59)
[2016-08-09] MEDS: DOCUSATE SODIUM 50 MG/SENNA 8.6 MG TAB PO SCH ×2 (10:56→21:59)
[2016-08-09] MEDS: RIVAROXABAN 20 MG TAB PO SCH (10:56)
[2016-08-09] MEDS: TORSEMIDE 5 MG TAB PO SCH ×2 (10:56→17:18)
[2016-08-09] MEDS: CARVEDILOL 3.125 MG TAB PO SCH ×2 (12:00→21:59)
[2016-08-09 12:38] LABS: BICARBONATE 33.3 MEQ/L (21.0-32.0); MAGNESIUM 1.6 MG/DL (1.5-2.5); POTASSIUM 3.4 MEQ/L (3.5-5.1)
[2016-08-09] MEDS: ATORVASTATIN 40 MG TAB PO SCH (21:59)
[2016-08-09] MEDS: GABAPENTIN 300 MG CAP PO SCH (21:59)
[2016-08-09] MEDS: TAMSULOSIN HCL 0.4 MG CAP PO SCH (21:59)
[2016-08-09] MEDS: INSULIN DETEMIR 100 UNITS/ML VIAL SQ SCH (22:09)
[2016-08-10] VITALS (8 sets, daily range): BP systolic 104–125; BP diastolic 55–71; PULSE 65–88; RESP 18–20; TEMP 97.5–97.9; O2SAT 94–98
[2016-08-10] MEDS: LOW DOSE INSULIN NOVOLOG SUPPLEMENTAL SCALE SQ SCH ×4 (05:57→20:45)
[2016-08-10] MEDS: PANTOPRAZOLE SOD 20 MG DELAYED RELEASE TAB PO SCH (05:57)
[2016-08-10] MEDS: SODIUM CHLORIDE 0.9% FLUSH 10 ML FLUSH IV FLUSH SCH ×2 (08:22→20:46)
[2016-08-10] MEDS: DOCUSATE SODIUM 50 MG/SENNA 8.6 MG TAB PO SCH ×2 (08:22→20:30)
[2016-08-10] MEDS: RIVAROXABAN 20 MG TAB PO SCH (08:22)
[2016-08-10] MEDS: CARVEDILOL 3.125 MG TAB PO SCH ×2 (08:22→20:31)
[2016-08-10] MEDS: TORSEMIDE 5 MG TAB PO SCH ×2 (10:12→17:07)
[2016-08-10] MEDS ORDERED: POTASSIUM CHLORIDE 10 MEQ CONTROLLED RELEASE TAB PO ONE (12:15)
[2016-08-10] MEDS ORDERED: TORSEMIDE 5 MG TAB PO ONE (12:15)
[2016-08-10 14:08] LABS: BICARBONATE 33.7 MEQ/L (21.0-32.0); POTASSIUM 3.5 MEQ/L (3.5-5.1)
--- NOTE | 2016-08-10 15:12 | HHI.PR ---
Subjective Remarks Patient reports is feeling slightly better. Bilateral lower extremity swelling is improving. Still having some shortness of breath with minimal exertion. Objective Vitals Vital Signs Date Time Temp Pulse Resp B/P Pulse Ox O2 Delivery O2 Flow Rate FiO2 08/10/16 12:00 Nasal Cannula 2.00 08/10/16 12:00 97.7 74 18 113/57 94 08/10/16 08:30 Nasal Cannula 2.00 08/10/16 08:17 65 08/10/16 08:00 97.6 88 18 104/71 98 08/10/16 07:55 94 Nasal Cannula 2.00 08/10/16 04:07 97.8 68 20 113/55 95 08/10/16 00:09 97.5 74 18 125/60 94 08/10/16 00:00 94 Nasal Cannula 2.00 08/09/16 23:58 92 Nasal Cannula 2.00 08/09/16 20:15 87 08/09/16 20:00 92 Nasal Cannula 2.00 08/09/16 20:00 97.9 84 18 120/68 93 08/09/16 17:45 97.2 77 20 103/70 96 08/09/16 15:42 95 08/09/16 15:33 97.3 81 16 93/51 91 I/O 08/09/16 08/09/16 08/09/16 08/10/16 08/10/16 08/10/16 07:00 15:00 23:00 07:00 15:00 23:00 Intake Total 480 ml 562 ml Output Total 450 ml 300 ml 1000 ml Balance 480 ml -450 ml -300 ml -438 ml Intake Oral 480 ml 560 ml IV Total 2 ml Output Urine Total 450 ml 300 ml 1000 ml # Bowel Movements 0 0 1 Result Diagram: 08/08/16 0446 08/10/16 1320 Imaging Last Impressions Chest X-Ray 08/07/162008 Signed Impressions: Service Date/Time: Sunday, August 07, 2016 20:21 - CONCLUSION: Chronic infiltrates in both lungs, similar to prior. No acute findings. Colt Richter MD Objective Remarks GENERAL: This is a well-nourished, well-developed patient, in no apparent distress. CARDIOVASCULAR: Normal rate and regular rhythm without murmurs, gallops, or rubs. RESPIRATORY: Good respiratory efforts. Bilateral basilar crackles. Otherwise clear to auscultation bilaterally. GASTROINTESTINAL: Abdomen soft, non-tender, non-distended. Normal active bowel sounds MUSCULOSKELETAL: Extremities with 2+ bilateral lower extremity edema NEURO: Alert & Oriented x4 to person, place, time, situation. Moves all ext x4 PSYCH: Appropriate mood and affect. A/P Problem List: (1) CHF (congestive heart failure) ICD Code: I50.9 Status: Acute (2) A-fib ICD Code: I48.91 Status: Acute (3) HTN (hypertension) ICD Code: I10 Status: Chronic (4) DM (diabetes mellitus) ICD Code: E11.9 Status: Chronic Assessment and Plan 70-year-old male with a PMH of HTN, A. fib on Xarelto, CHF (Echo 07/13/16 w/ EF 20 -25%), CAD s/p CABG, Pulmonary Fibrosis, Hyperlipidemia, GERD, h/o CVA and DM who presented with c/o SOB and progressive lower extremity edema. CHF: Acute on Chronic systolic. Reviewed: Echo 07/13/16 w/ EF 20-25%, BNP 536, +lower extremity edema, CXR w/ no acute findings, shows chronic infiltrates. -Continue torsemide. Give 1 extra dose of 10 mg today. -Monitor I/O and daily weights -Continue ambulation with PT and/or RT -Continue supplemental O2 -Follow-up renal function, electrolytes, and BNP A-fib, Chronic -Cont home Xarelto HTN, chronic, BP controlled -Continue home Coreg -Monitor BP DM, chronic -Sliding scale w/ Accu-check. -Cont home Levemir DVT Prophylaxis: On Xarelto Discharge Planning Continue diuresis in the monitored setting. Consider discharge tomorrow. Problem Qualifiers (1) HTN (hypertension): Qualified Code: I10 - Essential hypertension Maricruz Tony MD Aug 10, 2016 15:12
[2016-08-10] MEDS: ATORVASTATIN 40 MG TAB PO SCH (20:30)
[2016-08-10] MEDS: GABAPENTIN 300 MG CAP PO SCH (20:30)
[2016-08-10] MEDS: TAMSULOSIN HCL 0.4 MG CAP PO SCH (20:31)
[2016-08-10] MEDS: INSULIN DETEMIR 100 UNITS/ML VIAL SQ SCH (20:45)
[2016-08-11] VITALS: BP 101/53; PULSE 83; RESP 18; TEMP 97.6; O2SAT 97
[2016-08-11 04:06] VITALS: BP 103/62; PULSE 74; RESP 18; TEMP 98.4; O2SAT 95
[2016-08-11] MEDS: LOW DOSE INSULIN NOVOLOG SUPPLEMENTAL SCALE SQ SCH ×2 (06:30→11:00)
[2016-08-11] MEDS: PANTOPRAZOLE SOD 20 MG DELAYED RELEASE TAB PO SCH (06:30)
[2016-08-11] MEDS: CARVEDILOL 3.125 MG TAB PO SCH (07:49)
[2016-08-11] MEDS: TORSEMIDE 5 MG TAB PO SCH (07:49)
[2016-08-11] MEDS: DOCUSATE SODIUM 50 MG/SENNA 8.6 MG TAB PO SCH (07:49)
[2016-08-11] MEDS: RIVAROXABAN 20 MG TAB PO SCH (07:49)
[2016-08-11] MEDS: SODIUM CHLORIDE 0.9% FLUSH 10 ML FLUSH IV FLUSH SCH (07:50)
[2016-08-11 07:53] VITALS: PULSE 68
[2016-08-11 08:00] VITALS: BP 98/54; PULSE 81; RESP 20; TEMP 97.3; O2SAT 94
[2016-08-11] MEDS ORDERED: TORS5TAB2 PO ×2 (09:00→10:22)
--- NOTE | 2016-08-11 09:00 | HHI.DS ---
Discharge Summary Admission Date Aug 07, 2016 at 21:59 Discharge Date: Aug 11, 2016 Admitting Diagnosis CHF exacerbation, dyspnea, hypoxia (1) CHF (congestive heart failure) ICD Code: I50.9 (2) A-fib ICD Code: I48.91 (3) HTN (hypertension) ICD Code: I10 (4) DM (diabetes mellitus) ICD Code: E11.9 Procedures None Brief History - From Admission History of present illness from the admitting physician This is a 70-year-old male with a PMH of HTN, A. fib on Xarelto, CHF (Echo w/ EF 20-25%), CAD s/p CABG, Pulmonary Fibrosis, Hyperlipidemia, GERD, h/o CVA and DM who [facility] and progressive lower extremity edema. Recent admit 07/13-07/20/16 for Syncope/CHF w/ Abnormal Stress, s/p Cath by Dr. Carcamo 07/17/16 w/ 2/3 patent graft stents and mod to severe LV dysfunction. Returns now with ongoing OB and lower extremity edema as above. On arrival, BP 112/65, HR 104, O2 sat 90% on RA, Afebrile. CBC at baseline. Chemistry essentially unremarkable. Troponin 0.03. BNP 536. INR 1.2. CXR with chronic infiltrates bilaterally similar to previous studies, no acute findings. CBC/BMP: 08/08/16 0446 08/10/16 1320 Significant Findings Laboratory Tests Test 08/09/16 08/10/16 11:07 13:20 Potassium Level 3.4 MEQ/L (3.5-5.1) Carbon Dioxide Level 33.3 MEQ/L 33.7 MEQ/L (21.0-32.0) (21.0-32.0) Blood Urea Nitrogen 31 MG/DL (7-18) 34 MG/DL (7-18) Estimat Glomerular Filtration 71 ML/MIN (>89) 62 ML/MIN (>89) Rate B-Type Natriuretic Peptide 600 PG/ML (0-100) Random Glucose 209 MG/DL (74-106) Imaging Last Impressions Chest X-Ray 08/07/162008 Signed Impressions: Service Date/Time: Sunday, August 07, 2016 20:21 - CONCLUSION: Chronic infiltrates in both lungs, similar to prior. No acute findings. Colt Richter MD PE at Discharge GENERAL: This is a well-nourished, well-developed patient, in no apparent distress. CARDIOVASCULAR: Normal rate and regular rhythm without murmurs, gallops, or rubs. RESPIRATORY: Good respiratory efforts. Bilateral basilar crackles. Otherwise clear to auscultation bilaterally. GASTROINTESTINAL: Abdomen soft, non-tender, non-distended. Normal active bowel sounds MUSCULOSKELETAL: Extremities with 2+ bilateral lower extremity edema NEURO: Alert & Oriented x4 to person, place, time, situation. Moves all ext x4 PSYCH: Appropriate mood and affect. Pt update on day of discharge Patient reports is feeling better. Breathing more comfortably. Bilateral lower extremity edema improved. Diuresed well with torsemide. We discussed discharge planning at length. He requested a refill on Xarelto. Hospital Course 70-year-old male with a PMH of HTN, A. fib on Xarelto, CHF (Echo 07/13/16 w/ EF 20 -25%), CAD s/p CABG, Pulmonary Fibrosis, Hyperlipidemia, GERD, h/o CVA and DM admitted with acute on chronic systolic CHF. Evaluation and treatment course detailed below: CHF: Acute on Chronic systolic. Reviewed: Echo 07/13/16 w/ EF 20-25%, BNP 536, +lower extremity edema, CXR w/ no acute findings, shows chronic infiltrates. Patient initially given Lasix and was switched to torsemide. He diuresed very well. He is discharged on torsemide 10 mg twice a day. He was counseled on fluid restriction. 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 A-fib, Chronic: Rate controlled. -Cont home dose Coreg and Xarelto. Patient given a refill for Xarelto as requested. HTN, chronic, BP controlled -Continue home Coreg DM, chronic -Sliding scale w/ Accu-check. -Cont home Levemir Pt Condition on Discharge: Good Discharge Disposition: Discharge Home Discharge Time: > 30 minutes Discharge Instructions DIET: Follow Instructions for: Diabetic Diet Activities you can perform: Regular-No Restrictions Follow up Referrals: Cardiology New Medications: Torsemide (Torsemide) 5 Mg Tab 10 MG PO BID@ #60 TAB Continued Medications: Atorvastatin (Atorvastatin) 40 Mg Tab 40 MG PO HS Cholesterol Management #30 Ref 0 TAB Carvedilol (Coreg) 3.125 Mg Tab 3.125 MG PO Q12HR #60 TAB Gabapentin (Gabapentin) 300 Mg Cap 300 MG PO HS #30 Ref 0 CAP Insulin Glargine Inj (Lantus Inj) 1,000 Unit/10 Ml Vial 22 UNITS SQ HS Blood Sugar Management Ref 0 VIAL Insulin Lispro (Human) Inj (Humalog Inj) 1,000 Unit/10 Ml Vial 5-8 UNITS SQ TIDAC Max dose at bedtime:( )units; sugars < 70,(0)units; sugars 150-199,(2)units; sugars 200-249,(4)units; sugars 250-299,(7)units; sugars 300- 349,(10)units; sugars more than 349,(12)units. Blood Sugar Management #1 Ref 0 VIAL Metformin (Metformin) 1,000 Mg Tab 1000 MG PO BIDPC With meals Blood Sugar Management #60 Ref 0 TAB Omeprazole (Omeprazole) 20 Mg Tab 20 MG PO DAILY #30 Ref 0 TAB Rivaroxaban (Xarelto) 20 Mg Tab 20 MG PO DAILY Blood Clot Prevention #30 Ref 1 TAB (This prescription has been renewed) Tamsulosin (Tamsulosin) 0.4 Mg Cap 0.4 MG PO HS Manage Prostate Problems #30 Ref 0 CAP Discontinued Medications: Furosemide (Furosemide) 40 Mg Tab 40 MG PO DAILY #30 Ref 0 TAB Maricruz Tony MD Aug 11, 2016 09:00
[2016-08-11] MEDS ORDERED: XARE20TA PO (10:22)
[2016-08-11 12:00] VITALS: BP 97/54; PULSE 77; RESP 20; TEMP 97.2; O2SAT 100
== END 2016-08-11 13:05 | disposition home or self-care (01) | DRG 293 ==
LOC: NEPE 19:56 → INTOOBSV 21:59 → OBSVTOIN 21:59 → NEDA 21:59 → NEPGCP 23:24 → OBSVTOIN 08-09 09:49 → INTOOBSV 08-09 09:49 → N04B 08-09 17:35
PROVIDERS: ADMIT Family Medicine; ATTEND Family Medicine
DX: I11.0 Hypertensive heart disease with heart failure (principal); J84.10 Pulmonary fibrosis, unspecified; I48.2 Chronic atrial fibrillation; I50.23 Acute on chronic systolic (congestive) heart failure; K21.9 Gastro-esophageal reflux disease without esophagitis; E11.9 Type 2 diabetes mellitus without complications; E78.5 Hyperlipidemia, unspecified; I25.10 Atherosclerotic heart disease of native coronary artery without angina pectoris; Z79.01 Long term (current) use of anticoagulants; Z79.4 Long term (current) use of insulin; Z95.1 Presence of aortocoronary bypass graft; Z95.2 Presence of prosthetic heart valve; Z86.73 Personal history of transient ischemic attack (TIA), and cerebral infarction without residual deficits
CPT/HCPCS: 71010; 80048; 80053; 82550; 82552; 82948; 83735; 83880; 84484; 85025; 85610; 85730; 93005; 94150; 94620; 96374; J1815; J1940